=== PATIENT | female | born 1985 | race Two or more races ===

== ENCOUNTER 2022-06-21 06:47 | Emergency (ER) | payer OTHER, SELFPAY ==
--- NOTE | ~2022-06-21 | US_ITS ---
EXAMINATION: US ABDOMEN LIMITED CLINICAL INFORMATION: Right upper quadrant pain. COMPARISON: None available. TECHNIQUE: Real-time imaging of the right upper quadrant abdominal viscera. FINDINGS: PANCREAS: Normal. LIVER: Normal. The liver is normal in size. The liver contour is normal. Parenchymal echogenicity is normal. No focal hepatic lesion. There is no intrahepatic biliary duct dilatation seen. GALLBLADDER: There are multiple echogenic mobile gallstones. Mild gallbladder wall thickening measuring 0.4 cm. No pericholecystic fluid collection seen. COMMON BILE DUCT: Normal in caliber measuring 0.3 cm in diameter. RIGHT KIDNEY: Normal. No hydronephrosis. No renal calculi or focal parenchymal lesions. The kidney measures 11.2 cm in maximum dimension. FREE FLUID: None. US/US abdomen limited IMPRESSION: 1. Cholelithiasis with mild gallbladder wall thickening. No pericholecystic fluid collection. 2. Visualized pancreas, liver, CBD and the right kidney appears unremarkable..
[2022-06-21 06:56] VITALS: BP 154/64; PULSE 73; RESP 18; TEMP 36.5; O2SAT 100; BMI 26.5
[2022-06-21 07:21] LABS: MANUAL DIFF FLAG NO
[2022-06-21 07:26] LABS: Basophils Percent Auto 0.5 % (0-2); Eosinophils Absolute Auto 0.1 X10*3/uL (0.0-0.4); Eosinophils Percent Auto 1.3 % (0-4); Hematocrit 38.4 % (37.0-47.0); Hemoglobin 11.6 g/dl (12.0-16.0); Imm Gran Abs Auto 0.05 X10*3/uL (0.00-0.03); Imm Gran Pct Auto 0.6 % (0.0-0.4); Mean Corpuscular HGB Conc 30.2 g/dl (31.0-35.0); Mean Corpuscular Hemoglobin 23.3 pg (27.0-33.0); Mean Corpuscular Volume 77.3 fL (80.0-98.0); Mean Platelet Volume 9.8 fL (9.4-12.3); Monocytes Absolute Auto 0.5 X10*3/uL (0.1-1.2); Monocytes Percent Auto 5.5 % (2-11); Neutrophils Absolute Auto 5.7 x10*3/uL (2.0-8.3); Neutrophils Percent Auto 68.1 % (45-73); Platelet Count 341 X10*3/uL (160-400); Red Blood Count 4.97 X10*6/uL (4.20-5.50); Red Cell Distribution Width 15.9 % (11.0-16.0); White Blood Count 8.4 X10*3/uL (4.8-10.8)
[2022-06-21 07:59] LABS: Alanine Aminotransferase 12 U/L (0-31); Alkaline Phosphatase 126 U/L (39-117); Anion Gap 11 (12-20); Aspartate Amino Transferase 16 U/L (5-31); Bilirubin Direct 0.2 mg/dL (0.0-0.5); Bilirubin Total 0.5 mg/dL (0.0-1.0); Blood Urea Nitrogen 12 mg/dL (9-16); Carbon Dioxide 25 mmol/L (22-29); Chloride 106 mmol/L (96-108); Creatinine Clr Calc Pharmacy 96.7; Estimated Glomerular Filt Rate > 60; Glucose Random 119 mg/dL (60-115); Lipase 45 U/L (8-78); Potassium 4.4 mmol/L (3.3-5.1); Sodium 138 mmol/L (135-145); Total Protein 7.7 g/dL (6.5-8.0)
[2022-06-21 08:04] LABS: Appearance Urine Cloudy; Color Urine Yellow; Glucose Urine UA Negative (Negative); Leukocyte Esterase Urine Moderate (2+) (Negative); Nitrite Urine Negative (Negative); PH 6.5 (5.0-9.0); UMIC TRIGGER UACC YES; UPreg QC Valid YES; Urine Blood Negative (Negative); Urine Ketones Negative (Negative); Urine Pregnancy NEGATIVE (NEGATIVE); Urine Protein Negative (Neg-Trace)
[2022-06-21 08:06] LABS: Bacteria Urine 1+ (None Seen); Hyaline Casts Urine 0-2 /LPF (0-2); RBC Urine 0-2 /HPF (0-2); UACC Culture Trigger YES
--- NOTE | 2022-06-21 08:07 | ED.ABDPAIN ---
HPI - Abdominal Pain General Chief Complaint: Abdominal Pain Stated Complaint: abd pain Time Seen by Provider: 06/21/22 08:07 Source: patient Mode of arrival: ambulatory Limitations: no limitations History of Present Illness HPI narrative: Patient no significant past medical history complaining of upper abdominal pain since last night vomited about more than 6 never had similar pain in the past did not eat anything since last night no urinary complaints no fever or chills Related Data Previous Rx's Medication Instructions Recorded cefuroxime axetil 250 mg tablet 250 mg PO BID 7 days #14 tabs 06/21/22 ondansetron 4 mg disintegrating 4 mg PO Q6-8H PRN nausea and 06/21/22 tablet vomiting #7 tabs tramadol 50 mg tablet 50 mg PO Q6H PRN pain #20 tabs 06/21/22 Allergies Allergy/AdvReac Type Severity Reaction Status Date / Time No Known Allergies Allergy Verified 06/21/22 07:00 Review of Systems Review of Systems Yes all other systems are reviewed and are negative [facility] Social History Social History Advance Directives: No Advance Directives Information Provided: No Physical Exam ED Vital Signs: Vital Signs - 24 hr 06/21/22 06:56 Temperature 97.7 F Pulse Rate 73 Respiratory Rate 18 Blood Pressure 154/64 H Pulse Oximetry 100 Oxygen Delivery Method Room Air BMI result Body Mass Index 26.5 Appearance: Alert. Oriented X3. No acute distress. Eyes: PERRLA, No Nystagmus ENT: Pharynx normal. Oral Mucosa moist Neck: Normal inspection. Neck supple. CVS: Normal heart rate and rhythm. Pulses normal. Respiratory: No respiratory distress. Equal air entry bilateral, no wheezing/rales/rhonchi Abdomen: Soft tender right upper quad and epigastric area no rebound tenderness or guarding Bowel sounds are present, no mass palpable, no CVA tenderness Skin: Skin warm and dry. Normal skin color. Normal skin turgor. Extremities: No lower extremity edema. No calf tenderness Neuro: Oriented X 3. No motor deficit. Medical Decision Making Medical Decision Making MDM Narrative: Bedside ultrasound done showed gallstones. Will get official ultrasound to rule out cholecystitis or CBD stone 1015 patient feeling much better at this time pain has improved ultrasound confirmed gallstones Lab Data [facility] Lab Attestation statement: I reviewed the patient's lab results. 06/21/22 07:16 06/21/22 07:16 Labs: Lab Results 06/21/22 06/21/22 06/21/22 Range/Units 07:16 07:16 07:56 WBC 8.4 (4.8-10.8) X10*3/uL RBC 4.97 (4.20-5.50) X10*6/uL Hgb 11.6 L (12.0-16.0) g/dl Hct 38.4 (37.0-47.0) % MCV 77.3 L (80.0-98.0) fL MCH 23.3 L (27.0-33.0) pg MCHC 30.2 L (31.0-35.0) g/dl RDW 15.9 (11.0-16.0) % Plt Count 341 (160-400) X10*3/uL MPV 9.8 (9.4-12.3) fL Immature Gran % (Auto) 0.6 H (0.0-0.4) % Neut % (Auto) 68.1 (45-73) % Lymph % (Auto) 24.0 (20-40) % [place] % (Auto) 5.5 (2-11) % Eos % (Auto) 1.3 (0-4) % Baso % (Auto) 0.5 (0-2) % Lymph # (Auto) 2.0 (1.2-4.9) X10*3/uL [place] # (Auto) 0.5 (0.1-1.2) X10*3/uL Eos # (Auto) 0.1 (0.0-0.4) X10*3/uL Baso # (Auto) 0.0 (0.0-0.2) X10*3/uL Abs Immat Gran (auto) 0.05 H (0.00-0.03) X10*3/uL Absolute Neuts (auto) 5.7 (2.0-8.3) x10*3/uL Absolute Nucleated RBC 0.000 (0.0-0.012) X10*3/uL Nucleated RBC % (auto) 0.0 (0.0-0.2) /100WBC Sodium 138 (135-145) mmol/L Potassium 4.4 (3.3-5.1) mmol/L Chloride 106 (96-108) mmol/L Carbon Dioxide 25 (22-29) mmol/L Anion Gap 11 L (12-20) BUN 12 (9-16) mg/dL Creatinine 0.73 (0.5-1.4) mg/dL Estim Creat Clear Calc 96.7 Estimated GFR > 60 Random Glucose 119 H (60-115) mg/dL Calcium 9.0 (8.4-10.2) mg/dL Total Bilirubin 0.5 (0.0-1.0) mg/dL Direct Bilirubin 0.2 (0.0-0.5) mg/dL AST 16 (5-31) U/L ALT 12 (0-31) U/L Alkaline Phosphatase 126 H (39-117) U/L Total Protein 7.7 (6.5-8.0) g/dL Albumin 4.0 (3.5-5.0) g/dL Lipase 45 (8-78) U/L Urine Color Yellow Urine Appearance Cloudy Urine pH 6.5 (5.0-9.0) Ur Specific [place] 1.020 (1.005-1.025) Urine Protein Negative (Neg-Trace) mg/dL Urine Glucose (UA) Negative (Negative) mg/dL Urine Ketones Negative (Negative) mg/dL Urine Blood Negative (Negative) Urine Nitrite Negative (Negative) Ur Leukocyte Esterase Moderate (2+) H (Negative) Urine RBC 0-2 (0-2) /HPF Urine WBC 11-20 H (0-5) /HPF Ur Squamous Epith Cells 6-10 (0-2) /HPF Urine Bacteria 1+ (None Seen) Hyaline Casts 0-2 (0-2) /LPF Urine Test (NEGATIVE) 06/21/22 Range/Units 07:56 WBC (4.8-10.8) X10*3/uL RBC (4.20-5.50) X10*6/uL Hgb (12.0-16.0) g/dl Hct (37.0-47.0) % MCV (80.0-98.0) fL MCH (27.0-33.0) pg MCHC (31.0-35.0) g/dl RDW (11.0-16.0) % Plt Count (160-400) X10*3/uL MPV (9.4-12.3) fL Immature Gran % (Auto) (0.0-0.4) % Neut % (Auto) (45-73) % Lymph % (Auto) (20-40) % [place] % (Auto) (2-11) % Eos % (Auto) (0-4) % Baso % (Auto) (0-2) % Lymph # (Auto) (1.2-4.9) X10*3/uL [place] # (Auto) (0.1-1.2) X10*3/uL Eos # (Auto) (0.0-0.4) X10*3/uL Baso # (Auto) (0.0-0.2) X10*3/uL Abs Immat Gran (auto) (0.00-0.03) X10*3/uL Absolute Neuts (auto) (2.0-8.3) x10*3/uL Absolute Nucleated RBC (0.0-0.012) X10*3/uL Nucleated RBC % (auto) (0.0-0.2) /100WBC Sodium (135-145) mmol/L Potassium (3.3-5.1) mmol/L Chloride (96-108) mmol/L Carbon Dioxide (22-29) mmol/L Anion Gap (12-20) BUN (9-16) mg/dL Creatinine (0.5-1.4) mg/dL Estim Creat Clear Calc Estimated GFR Random Glucose (60-115) mg/dL Calcium (8.4-10.2) mg/dL Total Bilirubin (0.0-1.0) mg/dL Direct Bilirubin (0.0-0.5) mg/dL AST (5-31) U/L ALT (0-31) U/L Alkaline Phosphatase (39-117) U/L Total Protein (6.5-8.0) g/dL Albumin (3.5-5.0) g/dL Lipase (8-78) U/L Urine Color Urine Appearance Urine pH (5.0-9.0) Ur Specific [place] (1.005-1.025) Urine Protein (Neg-Trace) mg/dL Urine Glucose (UA) (Negative) mg/dL Urine Ketones (Negative) mg/dL Urine Blood (Negative) Urine Nitrite (Negative) Ur Leukocyte Esterase (Negative) Urine RBC (0-2) /HPF Urine WBC (0-5) /HPF Ur Squamous Epith Cells (0-2) /HPF Urine Bacteria (None Seen) Hyaline Casts (0-2) /LPF Urine Test NEGATIVE (NEGATIVE) Radiology Impression Discussion of test interpretation with radiology: I have reviewed the radiologist's reading. Radiologist Impression: US/US abdomen limited IMPRESSION: 1.? Cholelithiasis with mild gallbladder wall thickening. No pericholecystic fluid collection. 2.? Visualized pancreas, liver, CBD and the right kidney appears unremarkable.. Medications Administered Discontinued Medications Generic Name Dose Route Start Last Admin Trade Name Freq PRN Reason Stop Dose Admin Famotidine 20 mg 06/21/22 08:23 06/21/22 08:41 Famotidine/Pf 20 Mg/2 Ml Vial IVPUSH 06/21/22 08:24 20 mg ONCE ONE Administration Sodium Chloride 1,000 mls @ 999 mls/hr 06/21/22 08:23 06/21/22 10:08 Ns IV 06/21/22 09:23 Infused .Q1H1M ONE Infusion Ceftriaxone Sodium 1 gm/ 50 mls @ 100 mls/hr 06/21/22 08:26 06/21/22 09:21 Sodium Chloride IV 06/21/22 08:55 Infused ONCE ONE Infusion Ketorolac Tromethamine 30 mg 06/21/22 08:23 06/21/22 08:41 Ketorolac Tromethamine 30 Mg/Ml Vial IVPUSH 06/21/22 08:24 30 mg ONCE ONE Administration Ondansetron HCl 4 mg 06/21/22 08:23 06/21/22 08:40 Ondansetron Hcl 4 Mg/2 Ml Vial IVPUSH 06/21/22 08:24 4 mg ONCE ONE Administration Discharge Plan Discharge Clinical Impression: Gallstone, UTI (urinary tract infection) Patient Disposition: Home, Self-Care Instructions: Gallstones (ED), Urinary Tract Infection in Women (ED) Additional Instructions: Avoid fried food Antibiotics for urinary tract infection Medicine for the nausea Drink plenty of fluids Follow-up surgeon for elective surgery for gallstones Report to the ER if worsening of the pain in right upper abdomen Chelo la comida frita Antibi?ticos para la infecci?n del tracto urinario Medicina para las nauseas Beber mucho l?quido Cirujano de seguimiento para cirug?a electiva de c?lculos biliares Informe a la reinier de emergencias si empeora el dolor en la parte superior derecha del abdomen Prescriptions: New cefuroxime axetil 250 mg tablet 250 mg PO BID 7 Days Qty: 14 0RF tramadol 50 mg tablet 50 mg PO Q6H PRN (Reason: pain) Qty: 20 0RF ondansetron 4 mg tablet,disintegrating 4 mg PO Q6-8H PRN (Reason: nausea and vomiting) Qty: 7 0RF Referrals: Isma Easley MD [Physician] - 1 week Print Language: Hungarian
[2022-06-21] MEDS: 0.9 % Sodium Chloride 1,000 ML 999 ML IV (08:37)
[2022-06-21] MEDS: ondansetron HCL 4 MG/2 ML VIAL IVPUSH (08:40)
[2022-06-21] MEDS: cefTRIAXone sodium 1 GM in 0.9 % Sodium Chloride 50 ML IV (08:40)
[2022-06-21] MEDS: Famotidine/PF 20 MG/2 ML VIAL IVPUSH (08:41)
[2022-06-21] MEDS: Ketorolac Tromethamine 30 MG/ML VIAL IVPUSH (08:41)
--- NOTE | 2022-06-21 09:28 | PC.NURSE ---
u/s at bedside at this time
== END 2022-06-21 10:44 | disposition home or self-care (01) ==
PROVIDERS: Emergency Provider Internal Medicine; PCP Family Medicine
DX: K80.20 Calculus of gallbladder without cholecystitis without obstruction (principal); N39.0 Urinary tract infection, site not specified; Z79.899 Other long term (current) drug therapy
CPT/HCPCS: 36415; 76705; 80048; 80076; 81001; 81003; 81025; 83690; 85025; 87086; 87088; 87186; 96361; 96374; 96375; 99284; J0696; J1885; J2405

== ENCOUNTER → 2022-07-10 09:27 | Outpatient (BNVA) | payer OTHER, SELFPAY | PROVIDERS: PCP Family Medicine; Visit Provider Surgery | DX: K80.20 Calculus of gallbladder without cholecystitis without obstruction (principal) | CPT/HCPCS: 99202 ==

== ENCOUNTER 2022-10-30 09:49 | Outpatient (REF) | payer OTHER, SELFPAY ==
[2022-10-30 11:25] LABS: MANUAL DIFF FLAG NO
[2022-10-30 11:30] LABS: Basophils Percent Auto 0.5 % (0-2); Eosinophils Absolute Auto 0.1 X10*3/uL (0.0-0.4); Eosinophils Percent Auto 1.5 % (0-4); Hematocrit 35.6 % (37.0-47.0); Hemoglobin 10.7 g/dl (12.0-16.0); Imm Gran Abs Auto 0.02 X10*3/uL (0.00-0.03); Imm Gran Pct Auto 0.3 % (0.0-0.4); Lymphocytes Absolute Auto 1.8 X10*3/uL (1.2-4.9); Lymphocytes Percent Auto 29.4 % (20-40); Mean Corpuscular HGB Conc 30.1 g/dl (31.0-35.0); Mean Corpuscular Volume 76.4 fL (80.0-98.0); Mean Platelet Volume 10.8 fL (9.4-12.3); Monocytes Absolute Auto 0.4 X10*3/uL (0.1-1.2); Neutrophils Absolute Auto 3.7 x10*3/uL (2.0-8.3); Neutrophils Percent Auto 61.3 % (45-73); Platelet Count 353 X10*3/uL (160-400); Red Blood Count 4.66 X10*6/uL (4.20-5.50)
[2022-10-30 11:40] LABS: Estimated Average Glucose 114 mg/dL; Hemoglobin A1c % 5.6 %
[2022-10-30 12:23] LABS: Syphilis Screen Nonreactive (Nonreactive)
[2022-10-30 12:25] LABS: Hepatitis A Antibody IgG REACTIVE (Nonreactive); TSH reflex Free T4 0.81 uIU/mL (0.32-4.0); ~Hepatitis A Antibody IgG 10.48 S/CO (0.00-0.99)
[2022-10-30 12:30] LABS: Cholesterol 179 mg/dL; HDL Cholesterol 56 mg/dL; LDL Cholesterol Calculated 98 mg/dl; Triglycerides 125 mg/dL
[2022-10-30 12:34] LABS: HBc Num1 0.23 S/CO (0.00-0.79); HBsAGNum1 0.33 S/CO (0.00-0.99); HIV AB/AG Nonreactive (Nonreactive); HIV Num 1 0.07 S/CO (0.00-0.99); Hepatitis B Core Antibody Nonreactive (Nonreactive); Hepatitis B Surface Antigen Negative (Negative)
[2022-10-30 12:46] LABS: Reflex LDLD? No
[2022-10-30 13:42] LABS: ~Hepatitis C Antibody Nonreactive (Nonreactive)
== END 2022-10-30 09:50 | disposition home or self-care (01) ==
LOC: HO.HHCL 09:49
PROVIDERS: Visit Provider Family Medicine
DX: Z00.00 Encounter for general adult medical examination without abnormal findings (principal)
CPT/HCPCS: 36415; 80061; 83036; 84443; 85025; 86704; 86708; 86780; 86803; 87340; 87389

== ENCOUNTER 2022-11-12 07:02 | Day surgery (SDC) | payer OTHER, SELFPAY ==
[2022-11-07 11:23] VITALS: BMI 28.0
--- NOTE | 2022-11-11 09:31 | HO.ANESPROP2 ---
Documented by User: Alejandra Koroma NP 11/11/22 09:32 HPI - Anesthesia Eval Consult details Narrative: 36yo F for Cholecystectomy Laparoscopic,poss open PMFSH Active Problems Active Problems: All Active Problems (Updated 07/10/22 @ 09:53 by Isma Easley MD) Gallstones (Acute) Past Medical History Medical History Gallstones Surgical History Surgical History Surgical history unknown Social History Social History Alcohol intake: current Alcohol intake frequency: holidays/special occasions only Patient Tobacco Use Status: Never used Tobacco Use of substances other than those prescribed or required for medical reasons: No Are you DNR?: No Advance Directives: No Advance Directives Information Provided: Yes Meds Allergies Allergy/AdvReac Type Severity Reaction Status Date / Time No Known Allergies Allergy Verified 07/10/22 09:36 Exam Exam Date and Time: November 11, 2022 0931 Height,Weight and Vital Signs: Height 5 ft 3 in Weight 71.668 kg Pertinent Lab Results Pertinent Lab Results: Laboratory Tests 06/21/22 10/30/22 07:16 09:56 WBC 6.0 Hgb 10.7 L Hct 35.6 L Plt Count 353 Sodium 138 Potassium 4.4 Chloride 106 Carbon Dioxide 25 BUN 12 Creatinine 0.73 Assessment and Plan Assessment Anesthesia Assessment: Chart Reviewed Documented by User: Delphine Hernandez MD 11/12/22 08:10 PMFSH Past Medical History Medical History Gallstones Family History Family history of problems with anesthesia: No Surgical History Surgical History Surgical history unknown History of Problems with Anesthesia: No (Never had anesthesia) Social History Social History Alcohol intake: current Alcohol intake frequency: holidays/special occasions only Patient Tobacco Use Status: Never used Tobacco Use of substances other than those prescribed or required for medical reasons: No Are you DNR?: No Advance Directives: No Advance Directives Information Provided: Yes Meds Allergies Allergy/AdvReac Type Severity Reaction Status Date / Time No Known Allergies Allergy Verified 07/10/22 09:36 Exam Height,Weight and Vital Signs: Height 5 ft 3 in Weight 71.668 kg Vital Signs Temp Resp BP Pulse Ox O2 Del Method 11/12/22 07:22 97.1 F 18 104/60 98 Room Air Pertinent Lab Results Pertinent Lab Results: Laboratory Tests 06/21/22 10/30/22 07:16 09:56 WBC 6.0 Hgb 10.7 L Hct 35.6 L Plt Count 353 Sodium 138 Potassium 4.4 Chloride 106 Carbon Dioxide 25 BUN 12 Creatinine 0.73 Lab Results 11/12/22 Range/Units 07:08 Urine Test NEGATIVE (NEGATIVE) Airway Mallampati Class: I TM Dist: >3cm Neck ROM: Full Loose/Missing/Broken Teeth: Yes (Many missing. 1 broken top left back. Denies loose teeth) Heart: RRR Lungs: CTAB Assessment and Plan Assessment Anesthesia Assessment: Anesthesia Plan Discussed Final Anesthetic Review Family History of Problems with Anesthesia: No History of Problems with Anesthesia: No (Never had anesthesia) NPO: Yes ASA Class: I Final Preanesthetic Review: No Changes in Pt Med Stat, Meds/Allgs Chart Reviewed, Consent Obtained/Reviewed and Anes Risks/Benef Reviewed Patient Risk: Low Procedure Risk: Intermediate Assessment/Block/Sedation in SS: Assess/Block/Sedation-SS Anesthetic Plan Anesthetic Plan: GA Disposition: Standard PACU
[2022-11-12] VITALS (7 sets, daily range): BP systolic 104–132; BP diastolic 52–67; PULSE 62–85; RESP 14–18; TEMP 36.2–36.5; O2SAT 97–100; BMI 26.6
[2022-11-12 07:21] LABS: UPreg QC Valid YES; Urine Pregnancy NEGATIVE (NEGATIVE)
[2022-11-12] MEDS: Lactated Ringers 1,000 ML 100 ML IVCONT (07:53)
--- NOTE | 2022-11-12 08:36 | MHC.SHP ---
Pre-Procedural Eval Section A Date of Service: 11/12/22 Section B Chief Complaint: Calculus of gallbladder without cholecystitis Details of Present Illness: has had epig pain on and off since last year Relevant Family History (Specify if Yes): No Relevant Social History: None Present Medications: see Short Stay Collaborative assessment Medical History: No relevant PMH History of Previous Operations: No relevant previous surgery Allergies: Allergies Allergy/AdvReac Type Severity Reaction Status Date / Time No Known Allergies Allergy Verified 07/10/22 09:36 Review of Systems Sugical H&P ROS: Negative: Constitution, Cardiovascular, Respiratory, Neurological, Psychiatric, Hem-Onc, Allergic/Immunologic, Gastrointestinal, Genitourinary, Musculoskeletal, Integumentary, Endocrine and Eyes/Ears/Nose/Throat Exam Surgical H&P Exam: Normal: HEENT, Normal: Heart, Normal: Lungs, Normal: Extremities, Normal: Abdomen, Normal: Skin and Normal: Neurological Plan Diagnosis/Plan: Unchanged I have reviewed the history and physical and performed a pertinent physical examination on my patient. No changes have occurred unless specified. Time Spent With Patient Time: Total time managing care of this patient today ____ minutes.
--- NOTE | 2022-11-12 10:03 | W.PM.OPN ---
Operative Note Operative Note Date of Service: 11/12/22 Narrative: Preop diagnosis: Gallstones, with symptoms Postop diagnosis: The same Procedure: Laparoscopic cholecystectomy Surgeon: Isma Easley MD assistant manager quality management: ALFRED Bermeo The patient is a 36 year female who has had periodic epigastric pain with note of gallstones on ultrasound. She understood the technique of laparoscopic cholecystectomy in view of presumed symptomatic gallstones. She was aware of the risks, benefits, and alternatives . She was brought to the operating room preop and placed in supine position under general anesthesia via endotracheal tube. The abdomen was prepped and draped in the usual sterile fashion. A surgical time-out was done. The patient received Cefotan 2 g IV preoperatively I made a short supraumbilical incision using blade 15. And through this carried down through the full-thickness of the skin subcutaneous fat down to the fascia. The fascia was incised. The peritoneum was entered. Through this incision a Emy port was introduced. Pneumoperitoneum was introduced to a pressure of 15 mm hg. From here on the rest of the procedure was done under vision with the laparoscope. With laparoscopic visualization I placed a 5/12 mm port in the epigastric area below the subcostal margin. Two 5 mm ports introduced a small incision below the subcostal margin along the anterior axillary line and the midclavicular line. Graspers were placed through these working ports. The patient was placed in head-up and [id number] position. The gallbladder was seen and this was not inflamed and supple. We applied a grasper at the fundus and this was used to retract the gallbladder cephalad. Another grasper was a placed on the pus retract this laterally. At this point therefore the gallbladder was being retracted in a cephalad and lateral fashion to put the area of the cystic duct on stretch I then proceeded to gently dissect these area of the neck of the gallbladder using the [place] dissector until was able to clearly see the cystic duct. The confluence of the cystic duct with the of the gallbladder was well-defined. Furthermore, the cystic artery was noted to be running alongside and immediately adherent to the cystic duct as well. I was able to apply clips on this to structures together as 1. Two clips being applied distally the cystic duct and the cystic artery were that resected between clips with Endo scissors I then proceeded to apply traction on the gallbladder away from the liver bed. I divided along the hilum with the electrocautery spatula and incised the peritoneum with electrocautery. I then proceeded to separate the gallbladder from the liver bed along a plane of dissection using a combination of electrocautery as well as blunt dissection with the tip of the spatula. We proceeded with this form of this actually although the fundus until the gallbladder was completely . The gallbladder was retrieved through an endobag through the umbilical incision. I reinserted all ports and re-insufflated. I cauterized oozing areas on the liver bed. Once hemostasis was confirmed, I proceeded to then observed all 4 quadrants. There was no other pathology and there is no evidence of any bowel injury or are bile leak I then desufflated the port sites. I removed all ports under vision with the laparoscope. The umbilical port was removed last. The fascia of the umbilical incision was closed with [id number] Polysorb 0 stitch. Skin closure was achieved on all incisions using Polysorb 4-0 subcuticular running sutures All incisions were infiltrated with Marcaine 0.5% for postop analgesia. Steri-Strips and dressings were applied. The procedure was completed The patient tolerated procedure well. There were no immediate complications. Initial and final counts of sponges and instruments were correct. Estimated blood loss was about 25 cc The patient was extubated without difficulty and transferred to the recovery room with stable vital signs
[2022-11-12] MEDS: oxyCODONE HCl Immed Release 5 MG TABLET PO (10:49)
[2022-11-12] MEDS: Acetaminophen 325 MG TABLET 650 MG PO (10:49)
== END 2022-11-12 11:51 | disposition home or self-care (01) ==
PROVIDERS: Nurse Practitioner; PCP Family Medicine; Visit Provider Surgery
PROC: 0FT44ZZ Resection of Gallbladder, Percutaneous Endoscopic Approach (ICD-10-PCS; CPT 47562; principal; 2022-11-12 08:40)
DX: K80.10 Calculus of gallbladder with chronic cholecystitis without obstruction (principal)
CPT/HCPCS: 47562; 81025; 88304; J1885; J2405; J2795; J3010

== ENCOUNTER → 2022-11-12 07:02 | Outpatient (BNV) | payer OTHER, SELFPAY | PROVIDERS: PCP Family Medicine; Visit Provider Surgery | DX: K80.10 Calculus of gallbladder with chronic cholecystitis without obstruction (principal) | CPT/HCPCS: 47562 ==

== ENCOUNTER 2022-11-25 09:14 | Outpatient (AMB) | payer OTHER, SELFPAY ==
--- NOTE | 2022-11-25 09:18 | MHC.OFFVIS ---
Intake Vital Signs 11/25/22 09:24 Weight 155 lb Intake Visit Reasons: S/P lap tommy Intake Note: This patient presents for a post-op assessment status post laparoscopic cholecystectomy. Patient c/o; reports epigastric pain that has not subsided, describes experincing Dry heaving Coil Builder Required: Yes Coil Builder Language: Medical Donation Professional Name: Cristiane Information Interpreted: non-clinical & clinical Accompanied by: Self / Same As Patient Allergies No Known Allergies Allergy (Verified 11/25/22 09:25) HPI S/P lap tommy HPI Details She underwent laparoscopic cholecystectomy last 11/12/2022. She tolerated procedure well. She currently denies significant complaints except pain on the incisions especially on the right side. [facility] Medical History Gallstones Surgical History History of laparoscopic cholecystectomy (~11/12/22) Surgical history unknown Social History Alcohol intake: current Alcohol intake frequency: holidays/special occasions only Patient Tobacco Use Status: Never used Tobacco Review of Systems Const Denies chills and Denies fever(s) Card Denies chest pain, Denies dyspnea and Denies dyspnea on exertion Resp Denies cough, Denies dyspnea and Denies dyspnea on exertion GI Denies hematochezia and Denies change in bowel habits Denies hematuria Musc Denies back pain and Denies limited range of motion Neuro Denies focal weakness and Denies convulsions Psych Denies depression and Denies mood swings Physical Exam Const General: comfortable and no acute distress Eyes Other: Anicteric sclerae Resp Effort & Inspection: normal respiratory effort GI Other: Incisions well healed, not infected, no hernias Palpation (GI): Soft to palpation, not firm and nontender Assessment & Plan Assessment & Plan (1) Gallstones: Code(s): K80.20 - Calculus of gallbladder without cholecystitis without obstruction Plan: Status post laparoscopic cholecystectomy for gallstones. She is doing very well. All incisions are well healed. She has good GI functions She was advised to avoid any lifting more than 20 lb for at least 2 more weeks. She can follow up on a p.r.n. basis. Coding Level of Care Code Global (65115) Diagnoses Gallstones K80.20
== END 2022-11-25 09:39 | disposition home or self-care (01) ==
PROVIDERS: PCP Family Medicine; Visit Provider Surgery
DX: K80.20 Calculus of gallbladder without cholecystitis without obstruction (principal)
CPT/HCPCS: 99213

== ENCOUNTER → 2022-11-25 09:14 | Outpatient (BNVA) | payer OTHER, SELFPAY | PROVIDERS: PCP Family Medicine; Visit Provider Surgery | DX: Z09 Encounter for follow-up examination after completed treatment for conditions other than malignant neoplasm (principal); Z87.19 Personal history of other diseases of the digestive system; Z90.49 Acquired absence of other specified parts of digestive tract | CPT/HCPCS: 99212 ==

== ENCOUNTER 2023-07-11 18:08 | Outpatient (REF) | payer OTHER, SELFPAY ==
[2023-07-14 17:03] LABS: C. trachomatis RNA TMA NOT DETECTED (NOT DETECTED); Candida glabrata RNA NOT DETECTED (NOT DETECTED); Candida species RNA DETECTED (NOT DETECTED); N. gonorrhoeae RNA TMA NOT DETECTED (NOT DETECTED); Trichomonas vaginalis RNA NOT DETECTED (NOT DETECTED)
== END 2023-07-11 18:09 | disposition home or self-care (01) ==
LOC: HO.HHCLNP 18:08
PROVIDERS: Visit Provider Family Medicine
DX: N92.6 Irregular menstruation, unspecified (principal)
CPT/HCPCS: 36415; 81513; 87481; 87491; 87591; 87661

== ENCOUNTER 2023-07-14 09:00 | Outpatient (REF) | payer OTHER, SELFPAY ==
[2023-07-14 11:41] LABS: Hematocrit 34.5 % (37.0-47.0); Hemoglobin 10.3 g/dl (12.0-16.0); Mean Corpuscular HGB Conc 29.9 g/dl (31.0-35.0); Mean Corpuscular Hemoglobin 22.2 pg (27.0-33.0); Mean Corpuscular Volume 74.2 fL (80.0-98.0); Mean Platelet Volume 10.4 fL (9.4-12.3); Platelet Count 421 X10*3/uL (160-400); Red Blood Count 4.65 X10*6/uL (4.20-5.50); Red Cell Distribution Width 16.5 % (11.0-16.0); White Blood Count 7.9 X10*3/uL (4.8-10.8)
[2023-07-14 12:27] LABS: Estimated Average Glucose 117 mg/dL; Hemoglobin A1c % 5.7 % (<6.0)
[2023-07-14 13:07] LABS: Alanine Aminotransferase 13 U/L (0-31); Albumin Level 3.8 g/dL (3.5-5.0); Alkaline Phosphatase 91 U/L (39-117); Anion Gap 10 (12-20); Aspartate Amino Transferase 15 U/L (5-31); Bilirubin Direct 0.2 mg/dL (0.0-0.5); Bilirubin Total 0.4 mg/dL (0.0-1.0); Blood Urea Nitrogen 15 mg/dL (9-16); Calcium 8.8 mg/dL (8.4-10.2); Carbon Dioxide 27 mmol/L (22-29); Chloride 104 mmol/L (96-108); Cholesterol 183 mg/dL (<200); Estimated Glomerular Filt Rate > 60; Glucose Random 94 mg/dL (60-115); HDL Cholesterol 64 mg/dL (>40); LDL Cholesterol Calculated 96 mg/dL (<100); Potassium 4.2 mmol/L (3.3-5.1); Sodium 137 mmol/L (135-145); Total Protein 7.9 g/dL (6.5-8.0); Triglycerides 118 mg/dL (<150)
[2023-07-14 13:29] LABS: Free T4 (Free Thyroxine) 0.94 ng/dL (0.71-1.85); Thyroid Stimulating Hormone 0.58 uIU/mL (0.32-4.0); Vitamin D 25-OH Total 17.1 ng/mL (>30)
== END 2023-07-14 09:01 | disposition home or self-care (01) ==
LOC: HO.HHCL 09:00
PROVIDERS: Visit Provider Family Medicine
DX: N93.9 Abnormal uterine and vaginal bleeding, unspecified (principal)
CPT/HCPCS: 36415; 80048; 80061; 80076; 82306; 83036; 84439; 84443; 85027

== ENCOUNTER 2023-08-07 11:16 | Outpatient (REF) | payer OTHER, SELFPAY ==
--- NOTE | ~2023-08-07 | US_ITS ---
EXAMINATION: US PELVIS CLINICAL INFORMATION: New spotting on oral contraceptive pills, last menstrual period 3 weeks ago. COMPARISON: None available. TECHNIQUE: Ultrasound of the pelvis is performed using both transabdominal and transvaginal transducers along with Doppler. Transvaginal imaging is performed due to inadequate visualization transabdominally. FINDINGS: The uterus is retroverted and measures 7.4 x 3.4 x 4.7 cm. No discrete fibroids are appreciated. Endometrial thickness is 6 mm. No significant free fluid. Right ovary measures 3.0 x 1.2 x 1.4 cm, volume 2.5 mL and is unremarkable. Left ovary measures 2.5 x 1.1 x 1.2 cm, volume 1.7 mL. Left ovary was not seen on transabdominal ultrasound images. Limited visualization due to bowel gas. Left ovary is unremarkable on transvaginal ultrasound images. US/US pelvic and transvaginal IMPRESSION: 1. No discrete fibroids appreciated. 2. Endometrial thickness is 6 mm. Correlation with clinical exam recommended to determine further management. 3. Unremarkable bilateral ovaries.
== END 2023-08-07 11:17 | disposition home or self-care (01) ==
LOC: HO.US 11:16
PROVIDERS: PCP Family Medicine; Visit Provider Family Medicine
DX: N93.9 Abnormal uterine and vaginal bleeding, unspecified (principal)
CPT/HCPCS: 76830; 76856

== ENCOUNTER 2023-09-25 13:52 | Outpatient (AMB) | payer OTHER, SELFPAY ==
--- NOTE | 2023-09-25 14:12 | MHC.OFFVIS ---
Vital Signs 09/25/23 14:22 Weight 153 lb BP 120/64 Blood Pressure Location Rt brachial Position Sitting Pulse 87 Intake Visit Reasons: incisional pain, Hx cholecystectomy Intake Note: This patient presents for a hematoma, injury to right argueta. Patient c/o; reports I have the exact same pain I had before the removed my gallbladder , reports I have constant pain in the mouth of my stomach , reports this causes her to feel fatigue, reports nausea and vomiting. 09/19/2023: Tibia/Fibula X-ray Extrusion Press Supervisor Required: Yes Extrusion Press Supervisor Language: Tool Builder Services: Extrusion Press Supervisor Present Extrusion Press Supervisor Name: Cristiane Information Interpreted: non-clinical & clinical Accompanied by: Self / Same As Patient Allergies No Known Allergies Allergy (Verified 09/25/23 14:30) Medication List - Last Reconciled 09/25/23 by Isma Easley MD ibuprofen 600 mg PO Q6H PRN oxycodone-acetaminophen 5-325 mg (Percocet) 1 tab PO Q4-6H PRN HPI HPI incisional pain, Hx cholecystectomy: Details: She had undergone laparoscopic cholecystectomy last October, for symptomatic gallstones. She tolerated procedure well However, she says she continued to have epigastric pain even after her surgery. She denies any problems with swallowing. She has good oral intake. She denies any other GI complaints. She denies any weight loss. [facility] Medical History (Updated 09/25/23 @ 14:40 by Isma Easley MD) Chronic epigastric pain Gallstones Surgical History History of laparoscopic cholecystectomy (~11/12/22) Surgical history unknown Social History Alcohol intake: current Alcohol intake frequency: holidays/special occasions only Patient Tobacco Use Status: Never used Tobacco Review of Systems Const Denies chills and Denies fever(s) Card Denies chest pain, Denies dyspnea and Denies dyspnea on exertion Resp Denies cough, Denies dyspnea and Denies dyspnea on exertion GI Denies hematochezia and Denies change in bowel habits Denies hematuria Musc Denies back pain and Denies limited range of motion Neuro Denies focal weakness and Denies convulsions Psych Denies depression and Denies mood swings Physical Exam Vital Signs: Last Vital Signs Pulse 87 09/25/23 14:22 BP 120/64 09/25/23 14:22 Const General: comfortable and no acute distress Orientation/consciousness: patient oriented x3 Neck Neck: Yes no lymphadenopathy Resp Auscultation: clear to auscultation bilaterally Cardio Rhythm: regular rhythm GI Palpation (GI): Soft to palpation, nontender and no guarding Neuro General: patient oriented x3 Assessment & Plan Assessment & Plan (1) Chronic epigastric pain: Code(s): R10.13 - Epigastric pain; G89.29 - Other chronic pain Category: Medical Plan: She describes chronic epigastric pain and this had persisted even after cholecystectomy a year ago. I will started on a trial of Prilosec. I will also send her a referral to GI for endoscopy I did tell her that if she continues to have questions down the line, she can call us for guidance. She has comfortable with the plan as above. Coding Level of Care Code Est Pt Level 3 (51817) Diagnoses Chronic epigastric pain R10.13; G89.29
[2023-09-25 14:22] VITALS: BP 120/64; PULSE 87
== END 2023-09-25 14:43 | disposition home or self-care (01) ==
PROVIDERS: PCP Family Medicine; Visit Provider Surgery
DX: R10.13 Epigastric pain (principal); G89.29 Other chronic pain
CPT/HCPCS: 99213

== ENCOUNTER → 2023-09-25 13:52 | Outpatient (BNVA) | payer OTHER, SELFPAY | PROVIDERS: PCP Family Medicine; Visit Provider Surgery | DX: R10.13 Epigastric pain (principal); G89.29 Other chronic pain | CPT/HCPCS: 99212 ==

== ENCOUNTER 2023-10-29 13:29 | Outpatient (REF) | payer OTHER, SELFPAY ==
[2023-11-03 15:18] LABS: HPV mRNA E6/E7 Not Detected (Not Detected)
== END 2023-10-29 13:30 | disposition home or self-care (01) ==
LOC: HO.HHCLNP 13:29
PROVIDERS: Visit Provider Advanced Practice Midwife
DX: Z12.4 Encounter for screening for malignant neoplasm of cervix (principal); N93.9 Abnormal uterine and vaginal bleeding, unspecified; R87.612 Low grade squamous intraepithelial lesion on cytologic smear of cervix (LGSIL)
CPT/HCPCS: 36415; 87624; 88175

== ENCOUNTER 2023-11-04 14:38 | Outpatient (REF) | payer OTHER, SELFPAY ==
[2023-11-04 16:34] LABS: Alanine Aminotransferase 14 U/L (0-31); Alkaline Phosphatase 120 U/L (39-117); Anion Gap 11 (12-20); Aspartate Amino Transferase 18 U/L (5-31); Bilirubin Total 0.3 mg/dL (0.0-1.0); Blood Urea Nitrogen 14 mg/dL (9-16); Calcium 9.1 mg/dL (8.4-10.2); Carbon Dioxide 26 mmol/L (22-29); Chloride 104 mmol/L (96-108); Estimated Glomerular Filt Rate > 60; Glucose Random 162 mg/dL (60-115); Potassium 3.9 mmol/L (3.3-5.1); Sodium 137 mmol/L (135-145); Total Protein 8.3 g/dL (6.5-8.0)
[2023-11-05 08:11] LABS: HBS Num1 2.07 mIU/mL (0-7.99); HBc Num1 0.14 S/CO (0.00-0.79); HBsAGNum1 0.34 S/CO (0.00-0.99); HIV AB/AG Nonreactive (Nonreactive); HIV Num 1 0.07 S/CO (0.00-0.99); Hepatitis B Core Antibody Nonreactive (Nonreactive); Hepatitis B Surface Antigen Negative (Negative); ~HepC Num1 0.53 S/CO (0.00-0.79); ~Hepatitis B Surface Antibody NONREACTIVE (Nonreactive); ~Hepatitis C Antibody Nonreactive (Nonreactive)
[2023-11-05 08:13] LABS: Hepatitis A Antibody IgG REACTIVE (Nonreactive); Syphilis Screen Nonreactive (Nonreactive); ~Hepatitis A Antibody IgG 9.98 S/CO (0.00-0.99)
== END 2023-11-04 14:39 | disposition home or self-care (01) ==
LOC: HO.HHCL 14:38
PROVIDERS: Visit Provider Family Medicine
DX: Z01.84 Encounter for antibody response examination (principal); Z11.3 Encounter for screening for infections with a predominantly sexual mode of transmission; Z11.4 Encounter for screening for human immunodeficiency virus [HIV]; R10.13 Epigastric pain
CPT/HCPCS: 36415; 80053; 86704; 86706; 86708; 86780; 86803; 87340; 87389

== ENCOUNTER 2023-11-05 09:13 | Outpatient (REF) | payer OTHER, SELFPAY | END 2023-11-05 09:14 | disposition home or self-care (01) | LOC: HO.HHCL 09:13 | PROVIDERS: Visit Provider Family Medicine | DX: R10.13 Epigastric pain (principal) | CPT/HCPCS: 87338 ==

== ENCOUNTER 2023-11-24 09:03 | Outpatient (REF) | payer OTHER, SELFPAY ==
[2023-11-24 11:32] LABS: MANUAL DIFF FLAG NO
[2023-11-24 11:49] LABS: Basophils Percent Auto 0.7 % (0-2); Eosinophils Absolute Auto 0.2 X10*3/uL (0.0-0.4); Hematocrit 36.8 % (37.0-47.0); Hemoglobin 10.8 g/dl (12.0-16.0); Imm Gran Abs Auto 0.05 X10*3/uL (0.00-0.03); Imm Gran Pct Auto 0.8 % (0.0-0.4); Immature Retic Fraction 25.6 % (3.0-15.9); Lymphocytes Absolute Auto 2.1 X10*3/uL (1.2-4.9); Lymphocytes Percent Auto 35.7 % (20-40); Mean Corpuscular HGB Conc 29.3 g/dl (31.0-35.0); Mean Corpuscular Hemoglobin 21.8 pg (27.0-33.0); Mean Corpuscular Volume 74.3 fL (80.0-98.0); Mean Platelet Volume 10.4 fL (9.4-12.3); Monocytes Absolute Auto 0.4 X10*3/uL (0.1-1.2); Monocytes Percent Auto 6.2 % (2-11); Neutrophils Absolute Auto 3.2 x10*3/uL (2.0-8.3); Neutrophils Percent Auto 53.6 % (45-73); Platelet Count 370 X10*3/uL (160-400); Red Blood Count 4.95 X10*6/uL (4.20-5.50); Red Cell Distribution Width 17.3 % (11.0-16.0); Retic HGB Equivalent 25.1 pg (30.0-35.0); Reticulocyte Percent 1.7 % (0.5-1.8); Reticulocytes Absolute 0.084 X10*6/uL (0.026-0.095)
[2023-11-24 12:31] LABS: Folate 13.6 ng/mL (> or = 4.0); Vitamin B12 263 pg/mL (200-900)
[2023-11-24 12:36] LABS: Iron 23 mcg/dL (30-160); Percent Iron Saturation 6 % (15-50); Total Iron Binding Capacity 405 mcg/dL (228-428); Unsaturated Iron Binding 382 ug/dL
[2023-11-24 12:54] LABS: Ferritin < 2 ng/mL (10-122)
== END 2023-11-24 09:04 | disposition home or self-care (01) ==
LOC: HO.HHCL 09:03
PROVIDERS: Visit Provider Family Medicine
DX: D64.9 Anemia, unspecified (principal)
CPT/HCPCS: 36415; 82607; 82728; 82746; 83540; 85025; 85045

== ENCOUNTER 2023-11-25 08:00 | Outpatient (REF) | payer OTHER, SELFPAY | END 2023-11-25 08:01 | disposition home or self-care (01) | LOC: HO.HHCL 08:00 | PROVIDERS: Visit Provider Family Medicine | DX: K29.70 Gastritis, unspecified, without bleeding (principal); B96.81 Helicobacter pylori [H. pylori] as the cause of diseases classified elsewhere | CPT/HCPCS: 87338 ==

== ENCOUNTER 2024-02-02 12:26 | Outpatient (REF) | payer OTHER, SELFPAY ==
[2024-02-04 15:58] LABS: H Pylori Breath Test Negative (Negative)
== END 2024-02-02 12:27 | disposition home or self-care (01) ==
LOC: HO.LAB 12:26
PROVIDERS: PCP Family Medicine; Visit Provider Internal Medicine Gastroenterology
DX: R10.13 Epigastric pain (principal); G89.29 Other chronic pain
CPT/HCPCS: 83013; 99202

== ENCOUNTER 2024-02-02 12:26 | Outpatient (AMB) | payer OTHER, SELFPAY ==
--- NOTE | 2024-02-02 12:31 | A.OFFVIS_ITS ---
Vital Signs 02/02/24 12:34 Height 5 ft 3 in Weight 156 lb BMI 27.6 BP 111/75 Blood Pressure Location Lt brachial Position Sitting Pulse 76 Intake Visit Reasons: Epigastric pain Intake Note: Patient follow up for Epigastric pain Patient cc: abdominal pain and a lot of noises on her stomach after eating and also between diarrhea and constipation. Denies any other GI issues Department Chair Required: Yes Department Chair Name: [facility] Interpeter Accompanied by: Self / Same As Patient Allergies No Known Allergies Allergy (Verified 02/02/24 12:30) HPI HPI Epigastric pain: Details: HPI 38 yr old f here for assessment she has had epigastric pain, 3-4 years no relieving or exacerbating factors, she has occ nausea she takes prilosec prn -helps a little took one month ago pcp checked h pylori and was pos, pain seemed to go away up till 3-4 weeks ago--follow up h pylori was neg she has both constipation, and diarrhea she denies melena, rectal bleeding labs with anemia, has had spotting -vaginally after stopping OCP ROS: Constitutional : No Weight loss, No Fever, No Chills ENT/Mouth : No sore throat, No Rhinorrhea Eyes: No Swelling, No Redness Cardiovascular : No Chest Pain, No SOB, No Edema Respiratory : No Cough, No Sputum, No Wheezing Gastrointestinal : see HPI Genitourinary : NO Dysuria, No Urinary Frequency, No Hematuria, No Urgency Musculoskeletal : no joint pain, No Myalgias, No Joint Swelling Skin : No Skin Lesions, No rash Neuro : No Weakness, No Numbness, No Dizziness, No Headache Psych : No Anxiety/Panic, No Depression Heme/Lymph: No Bruising, No Lymphadenopathy Endocrine : No Polyuria, No Polydipsia All other systems reviewed and are negative. Medical History Chronic epigastric pain Gallstones Surgical History History of laparoscopic cholecystectomy (~11/12/22) Surgical history unknown Social History Alcohol intake: current Alcohol intake frequency: holidays/special occasions only Patient Tobacco Use Status: Never used Tobacco EXAM: GENERAL: The patient is well developed and nontoxic. VITAL SIGNS:see workflow HEENT: Nonicteric sclerae, PERRLA, EOMI. Oropharynx clear. Moist mucous membranes. Conjunctivae appear well perfused. No thyroid mass. CHEST: Chest wall is nontender. HEART: Regular rate and rhythm without murmurs. LUNGS: Clear to auscultation bilaterally. ABDOMEN: Soft, positive bowel sounds, nontender, no organomegaly.no flank tenderness SKIN: No rash, no excessive bruising, petechiae, or purpura. NEUROLOGIC: Cranial nerves II-XII intact without motor/sensory deficit. Psych: normal affect A/P: 1/ Anemia and epigastric pain, hx of h pylori, no overt Gi bleeding PLAN: 1/ H pylori breath test [facility] History (Updated 09/25/23 @ 14:40 by Isma Easley MD) Chronic epigastric pain Gallstones Surgical History History of laparoscopic cholecystectomy (~11/12/22) Surgical history unknown Social History Alcohol intake: current Alcohol intake frequency: holidays/special occasions only Patient Tobacco Use Status: Never used Tobacco Assessment & Plan Assessment & Plan (1) Chronic epigastric pain: Code(s): R10.13 - Epigastric pain; G89.29 - Other chronic pain Category: Medical Plan: see above Medications: New sodium,potassium,mag sulfates 17.5-3.13-1.6 gram (Suprep Bowel Prep Kit) DILUTE; drink 1/2 at 6-8 pm and half at 11 PM- 1AM 354 mL 0RF Coding Level of Care Code New Pt Level 4 (39951) Diagnoses Chronic epigastric pain R10.13; G89.29
[2024-02-02 12:34] VITALS: BP 111/75; PULSE 76; BMI 27.6
== END 2024-02-02 13:24 | disposition home or self-care (01) ==
PROVIDERS: PCP Family Medicine; Visit Provider Internal Medicine Gastroenterology
DX: R10.13 Epigastric pain (principal); G89.29 Other chronic pain
CPT/HCPCS: 99204

== ENCOUNTER 2024-03-08 08:14 | Day surgery (SDC) | payer OTHER, SELFPAY ==
--- NOTE | 2024-03-08 08:48 | HO.ANESPROP2 ---
HPI - Anesthesia Eval Consult details Narrative: 38 yo F presenting for EGD/colonoscopy [facility] Active Problems Active Problems: All Active Problems Chronic epigastric pain (Acute) Gallstones (Acute) Past Medical History Medical History (Updated 03/08/24 @ 08:49 by Dianelys Rolle RN) Anemia Chronic epigastric pain Gallstones Family History Family history of problems with anesthesia: No Surgical History Surgical History History of laparoscopic cholecystectomy (~11/12/22) Surgical history unknown History of Problems with Anesthesia: No (Never had anesthesia) Social History Social History Alcohol intake: current Alcohol intake frequency: holidays/special occasions only Patient Tobacco Use Status: Never used Tobacco Advance Directives: No Advance Directives Information Provided: Yes Meds Allergies Allergy/AdvReac Type Severity Reaction Status Date / Time No Known Allergies Allergy Verified 02/02/24 12:30 Home Medications ?Medication ?Instructions ?Recorded ?Confirmed ?Last Taken ?Type norgestimate-ethinyl estradiol 1 tab PO DAILY 02/02/24 03/08/24 Unknown History 0.18 mg/0.215mg/0.25mg-35 mcg(28)tablet (Tri-Linyah) ferrous sulfate 325 mg (65 mg 325 mg PO QAM 03/08/24 03/08/24 Unknown History iron) tablet (FeroSul) Exam Exam Date and Time: 03/08/24 0845 Airway Mallampati Class: II TM Dist: >3cm Neck ROM: Full Denture: Upper Heart: S1S2 Lungs: CTAB Assessment and Plan Assessment Anesthesia Assessment: Anesthesia Plan Discussed and Chart Reviewed Final Anesthetic Review Family History of Problems with Anesthesia: No History of Problems with Anesthesia: No (Never had anesthesia) NPO: Yes ASA Class: I Final Preanesthetic Review: No Changes in Pt Med Stat, Meds/Allgs Chart Reviewed, Consent Obtained/Reviewed and Anes Risks/Benef Reviewed Patient Risk: Low Procedure Risk: Low Anesthetic Plan Anesthetic Plan: MAC: and Agree w/ Assess. and Plan Disposition: Standard PACU
[2024-03-08 08:49] VITALS: BMI 27.8
[2024-03-08 09:08] LABS: UPreg QC Valid YES; Urine Pregnancy NEGATIVE (NEGATIVE)
[2024-03-08 09:09] VITALS: BP 116/56; PULSE 75; RESP 15; TEMP 36.9; O2SAT 99
[2024-03-08] MEDS: Lactated Ringers 1,000 ML 50 ML IVCONT (09:13)
--- NOTE | 2024-03-08 09:22 | MHC.SHP ---
Pre-Procedural Eval Section A - 24 Hr Update-Section A only Date of Service: 03/08/24 Section B - Complete if H&P > 30 days Chief Complaint: Epigastric pain Relevant Family History (Specify if Yes): No Relevant Social History: None Present Medications: see Short Stay Collaborative assessment Medical History: Significant History (Anemia Chronic epigastric pain Gallstones) History of Previous Operations: Relevant previous surgery/procedure and date(s) (History of laparoscopic cholecystectomy (~11/12/22)) Allergies: Allergies Allergy/AdvReac Type Severity Reaction Status Date / Time No Known Allergies Allergy Verified 02/02/24 12:30 Review of Systems Sugical H&P ROS: Negative: Constitution, Cardiovascular, Respiratory, Neurological, Psychiatric, Hem-Onc, Allergic/Immunologic, Gastrointestinal, Genitourinary, Musculoskeletal, Integumentary, Endocrine and Eyes/Ears/Nose/Throat Exam Surgical H&P Exam: Normal: HEENT, Normal: Heart, Normal: Lungs, Normal: Extremities, Normal: Abdomen, Normal: Skin and Normal: Neurological Plan Diagnosis/Plan: Unchanged I have reviewed the history and physical and performed a pertinent physical examination on my patient. No changes have occurred unless specified. Time Spent With Patient Time: Total time managing care of this patient today ____ minutes.
--- NOTE | 2024-03-08 10:04 | P.OPN-COLO_ITS ---
Colonoscopy Operative Note Operative Note Date of Service: 03/08/24 Narrative: Operative Information Procedure Description: EGD, Colonoscopy Indication: anemia and abdominal pain Anesthesia: MAC FLEXIBLE TRANSORAL UPPER GASTROINTESTINAL ENDOSCOPY AND COLONOSCOPY PROCEDURE NOTE UPPER ENDOSCOPY Consent: Indications for the procedure and potential complications of bleeding, perforation, reaction to medications and missed diagnosis were discussed with the patient and informed consent was obtained. Instrument: Olympus GIF H 190 J mid size upper endoscope Monitoring: Vital signs and clinical assessment, continuous EKG monitoring, Pulse oximetry, Carbon Dioxide monitoring and blood pressure monitoring were done throughout the procedure. Procedure: The patient was placed in the left lateral decubitis position and pre-procedure medications were administered and a bite block was placed. The endoscope was inserted into the mouth and advanced under direct vision to the third part of duodenum. A careful inspection was made as the upper endoscope was withdrawn including a retroflexed examination of the proximal stomach; Findings and interventions are described below. Findings: Larynx:normal Esophagus: GE junction at 40 cm, diaphragm hiatus at 40 cm, normal mucosa, distal esophagus bx taken Stomach: Mild gastritis. Biopsies were obtained. Grade 2 flap valve on retroflexed examination of the cardia. Duodenum: Normal bulb and descending duodenum, bx taken Intervention: Biopsies as noted above, COLONOSCOPY Instrument: Olympus variable stiffness pediatric scope 190L Colonoscopy Monitoring: Vital signs and clinical assessment, continuous EKG monitoring, Pulse oximetry, Carbon Dioxide monitoring and blood pressure monitoring were done throughout the procedure. Colon withdrawal time was 8 minutes. Procedure: The patient was placed in the left lateral decubitis position and pre-procedure medications were administered. After a digital rectal examination of the ano-rectum, the video colonoscope was inserted into the rectum and advanced through the colon to the cecum/TI. The colonoscope was slowly withdrawn in a retrograde panoramic fashion and the colon mucosa was carefully examined including a retroflexed view of the rectum. Findings and interventions are described below. Procedure Difficulty:moderate Findings: Terminal Ileum-normal, bx taken random colon bx taken Cecum:normal Ascending Colon: normal Transverse Colon -normal Descending Colon:normal Sigmoid Colon: normal Rectum: Retroflexion with small internal hemorrhoids, grade I Anorectum - normal Colon preparation: [place] Bowel Preparation Scale Right colon; 1-2 Transverse colon: 1-2 Left colon; 1-2 (0 = Unprepared colon segment with mucosa not seen due to solid stool that cannot be cleared. 1 = Portion of mucosa of the colon segment seen, but other areas of the colon segment not well seen due to staining, residual stool and/or opaque liquid. 2 = Minor amount of residual staining, small fragments of stool and/or opaque liquid, but mucosa of colon segment seen well. 3 = Entire mucosa of colon segment seen well with no residual staining, small fragments of stool or opaque liquid) Impression and Post Procedure Diagnosis: Endoscopy Findings: mild gastritis Colonoscopy Findings: internal hemorrhoids Plan: Await Pathology results Repeat Colonoscopy in 6-8 months or earlier if clinically indicated High fiber diet leaflet avoid straining at stool, epsom salts and sitz bath, anusol supps or cream Above findings were reviewed with the patient and relevant handouts were provided if indicated.
[2024-03-08 10:10] VITALS: BP 102/50; PULSE 77; RESP 16; TEMP 36.3; O2SAT 98
[2024-03-08 10:25] VITALS: BP 129/68; PULSE 76; RESP 16; O2SAT 98
== END 2024-03-08 11:11 | disposition home or self-care (01) ==
PROVIDERS: Anesthesiology; PCP Family Medicine; Visit Provider Internal Medicine Gastroenterology
PROC: (CPT 45380; principal; 2024-03-08 09:50)
DX: K64.0 First degree hemorrhoids (principal); R10.13 Epigastric pain; G89.29 Other chronic pain; K29.70 Gastritis, unspecified, without bleeding; D64.9 Anemia, unspecified; Z90.49 Acquired absence of other specified parts of digestive tract
CPT/HCPCS: 45380; 43239; 81025; 88305; 88313; 88342; J1100; J1596; J2003; J2704

== ENCOUNTER → 2024-03-08 08:14 | Outpatient (BNV) | payer OTHER, SELFPAY | PROVIDERS: PCP Family Medicine; Visit Provider Internal Medicine Gastroenterology | DX: D64.9 Anemia, unspecified (principal); K29.70 Gastritis, unspecified, without bleeding; K64.8 Other hemorrhoids; Z91.199 Patient's noncompliance with other medical treatment and regimen due to unspecified reason | CPT/HCPCS: 43239; 45380 ==

== ENCOUNTER 2024-03-24 08:56 | Outpatient (REF) | payer OTHER, SELFPAY ==
[2024-03-25 19:19] LABS: IgA 310 mg/dL (47-310); IgG 1873 mg/dL (600-1640); IgM 158 mg/dL (50-300)
[2024-03-26 15:24] LABS: Transglutaminase Ab IgG <1.0 U/mL; Transglutaminase IgA <1.0 U/mL
[2024-03-29 16:13] LABS: Immunoglobulin G Subclass 1 925 mg/dL (382-929); Immunoglobulin G Subclass 2 563 mg/dL (241-700); Immunoglobulin G Subclass 3 63 mg/dL (22-178); Immunoglobulin G Subclass 4 14.5 mg/dL (4-86); Immunoglobulin G Total 1698 mg/dL (600-1640)
== END 2024-03-24 08:57 | disposition home or self-care (01) ==
LOC: HO.HHCL 08:56
PROVIDERS: Visit Provider Internal Medicine Gastroenterology
DX: Z91.018 Allergy to other foods (principal); R10.33 Periumbilical pain; G89.29 Other chronic pain; D64.9 Anemia, unspecified
CPT/HCPCS: 36415; 82784; 86003; 86364

== ENCOUNTER 2024-03-31 12:21 | Emergency (ER) | payer OTHER, SELFPAY ==
--- NOTE | ~2024-03-31 | XR_ITS ---
CLINICAL HISTORY: pain 1 view abdomen Comparison: None Findings: Surgical clips noted in the imaged right upper quadrant. Mild atelectasis partially imaged in the [id number]. No small bowel dilatation. Moderate to severe stool burden, including in the imaged cecum. Mild osteoarthritis of the imaged hips. Majority of the sacrum and SI joints are obscured. IMPRESSION: 1. No small bowel obstruction. 2. Moderate to severe stool burden. This document has been electronically signed by: Hererra Valdes MD on 03/31/2024 19:19:09
[2024-03-31 13:12] VITALS: BP 118/53; PULSE 107; RESP 18; TEMP 36.9; O2SAT 100; BMI 28.3
--- NOTE | 2024-03-31 13:13 | ED.GENADULT ---
HPI - General Adult General Chief complaint: Abdominal Pain Stated complaint: Abdominal Pain Time Seen by Provider: 03/31/24 18:15 Source: patient Limitations: no limitations History of Present Illness ED Provider: Michelle Renee PA-C HPI narrative: 38-year-old female with a history of chronic upper abdominal discomfort, gallstones, presents with left-sided abdominal pain for 3 weeks. Pain is intermittent, unable to describe the nature of her symptoms. Denies nausea, vomiting, diarrhea or constipation. Denies dysuria, hematuria, history of kidney stones, no fevers. Related Data Home Medications ?Medication ?Instructions ?Recorded ?Confirmed norgestimate-ethinyl estradiol 1 tab PO DAILY 02/02/24 03/08/24 0.18 mg/0.215mg/0.25mg-35 mcg(28)tablet (Tri-Linyah) ferrous sulfate 325 mg (65 mg 325 mg PO QAM 03/08/24 03/08/24 iron) tablet (FeroSul) Previous Rx's ?Medication ?Instructions ?Recorded ibuprofen 600 mg tablet 600 mg PO Q6H PRN pain #30 tabs 11/12/22 Allergies Allergy/AdvReac Type Severity Reaction Status Date / Time No Known Allergies Allergy Verified 03/31/24 13:15 Review of Systems Review of Systems: Yes all other systems are reviewed and are negative Constitutional: Constitutional: Denies fatigue and Denies fever(s) Cardiovascular: Cardiovascular: Denies chest pain and Denies dyspnea Respiratory: Respiratory: Denies cough and Denies dyspnea Gastrointestinal: Gastrointestinal: Reports abdominal pain, Denies constipation, Denies diarrhea, Denies nausea and Denies vomiting Genitourinary: Genitourinary: Denies hematuria and Denies dysuria Endocrine: Endocrine: Denies fatigue [facility] Past Medical History Attestation statement: The following information was validated with the patient. Medical History (Updated 03/31/24 @ 20:05 by ALFRED Gonzalez) Anemia Chronic epigastric pain Gallstones Surgical History History of laparoscopic cholecystectomy (~11/12/22) Surgical history unknown Social History Social History Alcohol intake: current Alcohol intake frequency: a few times a month Patient Tobacco Use Status: Never used Tobacco Smoked in Last 30 Days: No Use of substances other than those prescribed or required for medical reasons: No Advance Directives: No Advance Directives Information Provided: No Do you have a plan to hurt others: No Plan Physical Exam ED Vital Signs: Vital Signs - 24 hr 03/31/24 13:12 03/31/24 18:50 Temperature 98.4 F 97.8 F Pulse Rate 107 H 74 Respiratory Rate 18 18 Blood Pressure 118/53 L 112/62 Pulse Oximetry 100 100 Oxygen Delivery Method Room Air Room Air BMI result Body Mass Index 28.3 Const Other: Alert well-appearing Orientation/consciousness: patient oriented x3 Resp Effort & Inspection: normal respiratory effort Cardio Other: Normal peripheral perfusion GI Other: Abdomen is soft, nondistended nontender no guarding Back/Spine/Pelvis Other: No CVA tenderness Skin Other: Warm dry no rash Neuro General: patient oriented x3, gait normal, no focal motor deficits and CN's II-XI intact bilaterally Psych Other: Calm cooperative Course Course Course Narrative: RME, this is a rapid medical exam performed by Tucker Oliver please refer to primary provider for complete H&P- 38 year old female presents for evaluation of left sided abdominal pain. Her symptoms started 3 weeks ago and worsened 5 days ago. She has a history of chronic abdominal pain. She reports that she had a recent colonoscopy that showed internal hemorrhoids but no other pathology. Plan for labs, urinalysis will defer any advanced imaging to primary ER provider Medical Decision Making Medical Decision Making MDM Narrative: 38-year-old female with a history of chronic upper abdominal discomfort, gallstones, presents with left-sided abdominal pain for 3 weeks. Pain is intermittent, unable to describe the nature of her symptoms. Denies nausea, vomiting, diarrhea or constipation. Denies dysuria, hematuria, history of kidney stones, no fevers. Problem: Chronic abdominal pain, gallstones History: Per patient I have considered the following differential diagnoses: Gallstone pancreatitis, constipation, renal colic, diverticulitis Plan: Screening labs were obtained from triage and are unremarkable, obtaining a urine sample now. Given left-sided symptoms, I did consider renal colic, however she is not having any related symptoms, and her symptoms have been present for 3 weeks. Also thought about gallstone pancreatitis, she has a history of gallstones, however her pain is not within the upper abdomen it is more mid to lower abdomen. Thought about diverticulitis because of left-sided symptoms, however again she is not guarding on exam her exam was nonfocal, she has no active GI symptoms. I do believe she is likely constipated despite denying constipation. We will obtain a KUB. I have independently reviewed the following tests: Labs: No leukocytosis, not anemic, no electrolyte abnormality, not , urine not infected KUB:Findings: Surgical clips noted in the imaged right upper quadrant. Mild atelectasis partially imaged in the [id number]. No small bowel dilatation. Moderate to severe stool burden, including in the imaged cecum. Mild osteoarthritis of the imaged hips. Majority of the sacrum and SI joints are obscured. IMPRESSION: 1. No small bowel obstruction. 2. Moderate to severe stool burden. This document has been electronically signed by: Herrera Valdes MD on 03/31/2024 19:19:09 Lab Data 03/31/24 15:49 03/31/24 15:49 Labs: Lab Results 03/31/24 03/31/24 Range/Units 15:49 18:58 WBC 10.0 (4.8-10.8) X10*3/uL RBC 5.24 (4.20-5.50) X10*6/uL Hgb 11.7 L (12.0-16.0) g/dl Hct 38.6 (37.0-47.0) % MCV 73.7 L (80.0-98.0) fL MCH 22.3 L (27.0-33.0) pg MCHC 30.3 L (31.0-35.0) g/dl RDW 18.1 H (11.0-16.0) % Plt Count 363 (160-400) X10*3/uL MPV 9.8 (9.4-12.3) fL Immature Gran % (Auto) 0.4 (0.0-0.4) % Neut % (Auto) 70.3 (45-73) % Lymph % (Auto) 22.0 (20-40) % [place] % (Auto) 5.8 (2-11) % Eos % (Auto) 1.1 (0-4) % Baso % (Auto) 0.4 (0-2) % Lymph # (Auto) 2.2 (1.2-4.9) X10*3/uL [place] # (Auto) 0.6 (0.1-1.2) X10*3/uL Eos # (Auto) 0.1 (0.0-0.4) X10*3/uL Baso # (Auto) 0.0 (0.0-0.2) X10*3/uL Abs Immat Gran (auto) 0.04 H (0.00-0.03) X10*3/uL Absolute Neuts (auto) 7.0 (2.0-8.3) x10*3/uL Absolute Nucleated RBC 0.000 (0.0-0.012) X10*3/uL Nucleated RBC % (auto) 0.0 (0.0-0.2) /100WBC Sodium 138 (135-145) mmol/L Potassium 3.9 (3.3-5.1) mmol/L Chloride 105 (96-108) mmol/L Carbon Dioxide 24 (22-29) mmol/L Anion Gap 13 (12-20) BUN 10 (9-16) mg/dL Creatinine 0.69 (0.5-1.4) mg/dL Estim Creat Clear Calc 103.4 Estimated GFR > 60 Random Glucose 105 (60-115) mg/dL Calcium 9.2 (8.4-10.2) mg/dL Total Bilirubin 0.3 (0.0-1.0) mg/dL AST 29 (5-31) U/L ALT 17 (0-31) U/L Alkaline Phosphatase 137 H (39-117) U/L Total Protein 8.9 H (6.5-8.0) g/dL Albumin 4.0 (3.5-5.0) g/dL Lipase 40 (8-78) U/L Beta HCG, Quant < 2 mIU/mL Urine Color Yellow Urine Appearance Clear Urine pH 6.5 (5.0-9.0) Ur Specific [place] <= 1.005 (1.005-1.025) Urine Protein Negative (Neg-Trace) mg/dL Urine Glucose (UA) Negative (Negative) mg/dL Urine Ketones Negative (Negative) mg/dL Urine Blood Negative (Negative) Urine Nitrite Negative (Negative) Ur Leukocyte Esterase Negative (Negative) Urine RBC 0-2 (0-2) /HPF Urine WBC 0-5 (0-5) /HPF Ur Squamous Epith Cells 0-2 (0-2) /HPF Urine Bacteria None Seen (None Seen) Hyaline Casts 0-2 (0-2) /LPF Discharge Plan Discharge Clinical Impression: Constipation Patient Disposition: Home, Self-Care Instructions: Constipation (ED) Additional Instructions: All of your screening labs were completely normal, your urine is not infected. You were found to be constipated on the x-ray. See home care instructions. You need to start using [id number]-[id number] Colace, this is a stool softener, 1 to 2 times a day. In addition use [id number] MiraLax, 2 to 3 times a day, and she you begin having normal regular bowel movements. Follow up with your primary care provider as needed. Prescriptions: No Action ibuprofen 600 mg tablet 600 mg PO Q6H PRN (Reason: pain) Qty: 30 0RF ferrous sulfate [FeroSul] 325 mg (65 mg iron) tablet 325 mg PO QAM norgestimate-ethinyl estradiol [Tri-Linyah] 0.18/0.215/0.25 mg-35 mcg (28) tablet 1 tab PO DAILY Print Language: Serbian
[2024-03-31 15:52] LABS: MANUAL DIFF FLAG NO
[2024-03-31 15:53] LABS: Basophils Percent Auto 0.4 % (0-2); Eosinophils Absolute Auto 0.1 X10*3/uL (0.0-0.4); Eosinophils Percent Auto 1.1 % (0-4); Hematocrit 38.6 % (37.0-47.0); Hemoglobin 11.7 g/dl (12.0-16.0); Imm Gran Abs Auto 0.04 X10*3/uL (0.00-0.03); Imm Gran Pct Auto 0.4 % (0.0-0.4); Lymphocytes Absolute Auto 2.2 X10*3/uL (1.2-4.9); Mean Corpuscular HGB Conc 30.3 g/dl (31.0-35.0); Mean Corpuscular Hemoglobin 22.3 pg (27.0-33.0); Mean Corpuscular Volume 73.7 fL (80.0-98.0); Mean Platelet Volume 9.8 fL (9.4-12.3); Monocytes Absolute Auto 0.6 X10*3/uL (0.1-1.2); Monocytes Percent Auto 5.8 % (2-11); Neutrophils Percent Auto 70.3 % (45-73); Platelet Count 363 X10*3/uL (160-400); Red Blood Count 5.24 X10*6/uL (4.20-5.50); Red Cell Distribution Width 18.1 % (11.0-16.0)
[2024-03-31 16:18] LABS: Alanine Aminotransferase 17 U/L (0-31); Alkaline Phosphatase 137 U/L (39-117); Anion Gap 13 (12-20); Aspartate Amino Transferase 29 U/L (5-31); Bilirubin Total 0.3 mg/dL (0.0-1.0); Blood Urea Nitrogen 10 mg/dL (9-16); Calcium 9.2 mg/dL (8.4-10.2); Carbon Dioxide 24 mmol/L (22-29); Chloride 105 mmol/L (96-108); Creatinine Clr Calc Pharmacy 103.4; Estimated Glomerular Filt Rate > 60; Glucose Random 105 mg/dL (60-115); Lipase 40 U/L (8-78); Potassium 3.9 mmol/L (3.3-5.1); Sodium 138 mmol/L (135-145); Total Protein 8.9 g/dL (6.5-8.0)
[2024-03-31 18:39] LABS: HCG Quantitative < 2 mIU/mL
[2024-03-31 18:50] VITALS: BP 112/62; PULSE 74; RESP 18; TEMP 36.6; O2SAT 100
[2024-03-31 19:04] LABS: Appearance Urine Clear; Color Urine Yellow; Glucose Urine UA Negative (Negative); Leukocyte Esterase Urine Negative (Negative); Nitrite Urine Negative (Negative); PH 6.5 (5.0-9.0); Specific Gravity - Urine <= 1.005 (1.005-1.025); Urine Blood Negative (Negative); Urine Ketones Negative (Negative); Urine Protein Negative (Neg-Trace)
[2024-03-31 19:09] LABS: Bacteria Urine None Seen (None Seen); Hyaline Casts Urine 0-2 /LPF (0-2); RBC Urine 0-2 /HPF (0-2); Squamous Epithelial Cell Urine 0-2 /HPF (0-2); WBC Urine 0-5 /HPF (0-5)
[2024-03-31 20:35] VITALS: BP 112/62; PULSE 74; RESP 18; TEMP 36.6; O2SAT 100
== END 2024-03-31 20:36 | disposition home or self-care (01) ==
PROVIDERS: Physician Assistant; Physician Assistant Medical; Emergency Provider Emergency Medicine; PCP Family Medicine
DX: K59.00 Constipation, unspecified (principal); R10.2 Pelvic and perineal pain; Z79.899 Other long term (current) drug therapy
CPT/HCPCS: 36415; 74018; 80053; 81001; 83690; 84702; 85025; 99283; 99284

== ENCOUNTER → 2024-03-31 18:22 | Outpatient (BNV) | payer OTHER, SELFPAY | PROVIDERS: Emergency Provider Emergency Medicine; PCP Family Medicine; Visit Provider Radiology Neuroradiology | DX: K56.41 Fecal impaction (principal) | CPT/HCPCS: 74018 ==

== ENCOUNTER 2024-11-11 07:33 | Outpatient (REF) | payer OTHER, SELFPAY ==
--- NOTE | ~2024-11-11 | MM_ITS ---
EXAMINATION: MM SCREENING DIGITAL BREAST TOMOSYNTHESIS, BILATERAL CLINICAL INFORMATION: Screening. Asymptomatic. COMPARISON: None. This is a baseline study. TECHNIQUE: Digital breast tomosynthesis is performed in mediolateral oblique and craniocaudal views along with computer-aided detection (CAD). FINDINGS: BREAST COMPOSITION: The breasts are heterogeneously dense, which may obscure small masses (ACR BI-RADS breast composition Category c). BILATERAL BREASTS: No significant masses, suspicious calcifications or other abnormalities are seen in either breast. MM/MM tomosynthesis screening BI IMPRESSION: BILATERAL BREASTS: Negative, no mammographic evidence of malignancy. Normal interval follow-up is recommended in 12 months. ASSESSMENT: BI-RADS 1 - Negative RECOMMENDATION: Routine annual mammography screening. FOLLOW-UP: 1 year F/U This examination should not preclude the clinical evaluation of a suspicious palpable abnormality. This patient's information was entered into a reminder system with a target due date for their next mammogram. Electronically signed by: Iglesia Jones MD 11/13/2024 03:56 PM EDT
--- OUTSIDE RECORDS SUMMARY | 2024-11-11 07:34 | XMS_ITS | Encounter Summary ---
Author Organization [employer] Address [address] [place] [address] [address] [place] [address] Care Team Providers Care Studio Potter Name Role Phone Cornelia Cabrera MD Primary Care Provider Encounter Details Date Type Department Care Team (Latest Contact Info) Description 08/24/2018 Abstract [facility] Dental, Provider, DDS Social History Tobacco Use Types Packs/Day Years Used Date Smoking Tobacco: Never Assessed Comments Unknown Sex and Gender Information Value Date Recorded Sex Assigned at Female 01/14/2022 10:25 AM EDT Legal Sex Female 10:25 AM EDT Gender Identity Female 01/14/2022 10:25 AM EDT Sexual Orientation Straight 01/14/2022 10 :25 AM EDT documented as of this encounter Plan of Treatment Upcoming Encounters Date Type Department Care Team (Late st Contact Info) Description 11/17/2024 9:45 AM EDT Office Visit [facility] [address], [place] [id number] Cornelia Cabrera MD [address] [place] [address] documented as of this encounter Visit Diagnoses Not on filedocumented in this encounter Care Teams Studio Potter Relationship Specialty Start Date End Date Cornelia Cabrera MD [address] [place], [place] [phone] PCP - General Family Medicine 11/01/21 documented as of this encounter
--- OUTSIDE RECORDS SUMMARY | 2024-11-11 07:34 | XMS_ITS | Clinical Summary ---
Author Organization [employer] Address [address] [place] [address] 7t [place] [address] Care Team Providers Care Seeing Eye Dog Teacher Name Role Phone Cornelia Cabrera MD Primary Care Provider [phone] Allergies No known active allergies Medications clobetasol (Temovate) 0.05 % gelIndications:A lopecia areata Apply on alopecia lesions twice daily 30 g 1 12/21/19 23 Active Fluocinolone Acetonide Scalp ([place]-Smoothe/F S Scalp) 0.01 % oilIndications:S eborrheic dermatitis Apply at night 2 times weekly , apply covering 118.28 mL 2 12/21/19 23 Active fluticasone (Flonase) 50 MCG/ACT nasal sprayIndications :Non-seasonal allergic rhinitis due to other allergic trigger SPRAY 1 SPRAY IN EACH NOSTRIL TWICE DAILY 48 g 1 01/22/20 23 Active ketoconazole (NIZOral) 2 % shampooIndicatio ns:Seborrheic dermatitis USE TO WASH HAIR TWICE WEEKLY AT LEAST 3 DAYS APART FOR 4 WEEKS 120 mL 01/25/20 23 Active Bismuth Subsalicylate 262 MG tablet Take 2 tablets by mouth 4 times daily 112 tablet 11/07/19 24 Active omeprazole (PriLOSEC) [address] capsule Take 1 capsule (20 mg) by mouth 2 times daily for 14 days. 28 capsule 11/07/19 24 Active Omeprazole 20 MG tablet delayed-release Take 1 tablet by mouth 2 times daily. 09/25/19 24 Active ferrous sulfate (Fe Tabs) 325 (65 Fe) MG EC tablet Take 1 tablet (325 mg) by mouth with breakfast and with evening meal. Do not crush, chew, or split. 60 tablet 5 11/25/19 24 025 Active Tri-Linyah 0.18/0.215/0.25 MG-35 MCG tablet Take 1 tablet by mouth in the morning. 84 tablet 3 10/26/19 25 Active Tri-Linyah 0.18/0.215/0.25 MG-35 MCG tablet TAKE 1 TABLET BY MOUTH ONCE DAILY IN THE MORNING 84 tablet 3 12/25/19 24 025 Discontinued(R eorder (will not trigger notification to Pharmacy)) Active Problems Problem Noted Date Diagnosed Date Anemia 11/07/2023 Assessment & Plan (11/07/2023 5:37 AM EDT): - mild, in a setting of AUB and epigastric pain - continue iron supplementation - upcoming appointment with GI for EGD evaluation - recheck lab in 1-2 months Family history of diabetes mellitus 11/07/2023 Epigastric abdominal pain 11/04/2023 Assessment & Plan (11/04/2023 2:21 PM EDT): - s/p cholecystectomy in October 2022 - scheduled for EGD evaluation in December 2023 - patient was prescribed omeprazole but has not taken yet, recommended to try - will check H.pylori Abnormal uterine bleeding (AUB) 07/11/2023 Assessment & Plan (11/07/2023 5:40 AM EDT): - US in July 2023 was benign - Seen by Fauzia anderson on 10/29/23 LSIL with negative high-risk HPV - continue OCP Assessment & Plan (07/11/2023 2:00 PM EDT): With persistent spotting, HCG negative -referred for pelvic US -check BV panel -will have pap appt scheduled -check basic labs -consider eval with CRITICAL CARE CLINICAL NURSE SPECIALIST if no improvement -advised contact [facility] if sx change or worsen Alopecia areata 12/20/2022 Assessment & Plan (12/20/2022 9:42 AM EDT): Discussed and will use Clobetasol Gel BID as needed Seborrheic dermatitis 12/20/2022 Assessment & Plan (12/20/2022 9:43 AM EDT): Initiate DermaSmoothe FS Scalp oil on damp-scalp while occluded overnight and wash out with 2% Ketoconazole Shampoo in the morning; Use once weekly. Vitamin D deficiency 11/08/2022 Assessment & Plan (11/07/2023 5:40 AM EDT): - continue vitamin D supplementation - encourage to increase dietary vitamin D intake Assessment & Plan (11/08/2022 1:49 PM EDT): - continue vitamin D supplementation - encourage to increase dietary vitamin D intake Hair loss 11/08/2022 Assessment & Plan (11/04/2023 2:21 PM EDT): - seen by derm provider in December 2022, prescribed clobetasol Assessment & Plan (11/08/2022 1:50 PM EDT): - no bald spots - trial of minoxidil - use hypoallergenic unscented skin and hair care products Overweight 11/08/2022 Assessment & Plan (11/07/2023 5:40 AM EDT): - continue working on lifestyle modifications Assessment & Plan (11/08/2022 1:54 PM EDT): - continue working on lifestyle modifications Resolved Problems Problem Noted Date Diagnosed Date Resolved Date Calculus of gallbladder with chronic cholecystitis without obstruction 11/08/20222023 Assessment & Plan (11/08/2022 1:52 PM EDT): - scheduled for cholecystectomy on 11/12/22. - pt has functional level > 4 METs. Pt is low-risk for developing significant cardiopulmonary complications. Encounters Date Type Department Care Team Description 11/10/2024 Patient Outreach [facility] [address] [place] [phone] Cornelia Cabrera MD Pre-visit Planning (SDOH screening completed on 10/25/2024) 10/25/2024 9:15 AM EDT Office Visit [facility] [address] [place] [address] Fauzia Rivera CNM Surveillance of previously prescribed contraceptive pill (Primary Dx); Breast cancer screening by mammogram 10/25/2024 Telephone [facility] [address] [place] [address] Cornelia Cabrera MD insurance 10/25/2024 Travel 10/22/2024 Telephone [facility] [address] [place] [address] Cornelia Cabrera MD Insurance 10/22/2024 Telephone [facility] [address] [place] [address] Cornelia Cabrera MD chartprep from Last 3 Months Family History Medical History Relation Name Comments Diabetes Mother Diabetes Mother's Sister 1 Thyroid disease Mother's Sister 1 Cancer Mother's Sister 2 Relation Name Status Comments Mother Mother's Sister 1 Mother's Sister 2 Social History Tobacco Use Types Packs/Day Years Used Date Smoking Tobacco: Never Passive Smoke Exposure: Never Smokeless Tobacco: Never Tobacco Cessation:Counseling Given: Not Answered Depression Answer Date Recorded Patient Health Questionnaire-9 Score 0 11/04/2023 Patient Health Questionnaire-9 Score 0 11/04/2023 Last PHQ-9: Questionnaire Data Not on file 0 11/04/2023 Housing Stability Answer Date Recorded What is your housing situation today? I have shanikaabida de luna 10/25/[address] you li ve. Do you have problems with any of the following? None of the above 10/25/2024 Food Insecurity Answer Date Recorded Within the past 12 months, y ou worried that your food would run out before you got money to buy more: Never True 01/13/2023 Within the past 12 months,th e food you bought just didn't last and you didn't have enough money to get more: Never True Transportation Answer Date Recorded In the past 12 months, has l ack of transportation kept you from medical appts, meetings, work or from getting things needed for daily living? No 10/22/2023 Utilities Answer Date Recorded In the past 12 months, has t he electric, gas, oil or water [employer] threatened to shut off services in your home? No 01/13/2023 Depression Answer Date Recorded Patient Health Questionnaire-2 Score 0 11/04/2023 Internet Access Answer Date Recorded Internet Access Q1 Yes 11/07/2024 Internet Access Q2 Not on file 11/07/2024 Comments No Intention Date Recorded No desire to become (finding) 0 10/25/2024 Sex and Gender Information Value Date Recorded Sex Assigned at Female 01/14/2022 10:25 AM EDT Legal Sex Female 10:25 AM EDT Gender Identity Female 01/14/2022 10:25 AM EDT Sexual Orientation Straight 01/14/2022 10 :25 AM EDT Last Filed Vital Signs Vital Sign Reading Time Taken Comments Blood Pressure 102/72 10/25/2024 9:18 AM EDT Pulse 70 10/25/2024 9:18 AM EDT Temperature 36.5 C (97.7 F) 10/25/2024 9:18 AM EDT Respiratory Rate 12 10/25/2024 9:18 AM EDT Oxygen Saturation 100% 10/25/2024 9:18 AM EDT Inhaled Oxygen Concentration - - Weight 67 kg (147 lb 9.6 oz) 10/25/2024 9:18 AM EDT Height 160 cm (5' 3 ) 11/04/2023 1:41 PM EDT Body Mass Index 26.15 11/04/2023 1:41 PM EDT Plan of Treatment Upcoming Encounters Date Type Department Care Team (Late st Contact Info) Description 11/17/2024 9:45 AM EDT Office Visit [facility] [address] [place] [address] Cornelia Carbera MD [address] [place] [address] Health Maintenance Due Date Last Done Comments HPV Vaccines (1 - 3-dose series) 12/27/1998 COVID-19 Vaccine ( season) 2023 03/30/2021, 07/05/2020, 06/12/2020 Mammogram 2023 Depression Screening 11/03/2024 11/04/2023, 11/04/19 24 Influenza Vaccine (#1) 2024 , 05/27/2018, 01/13/2017, Additional history exists DTaP/Tdap/Td Vaccines (2 - Td or Tdap) 09/04/2025 09/05/2015 Alcohol/Substance Use Screening 10/25/2025 10/25/2024 Disability Screening 10/25/2025 10/25/2024 Family Planning (PISQ) 10/25/2025 10/25/2024 SDOH Screening 10/25/2025 10/25/2024 Tobacco Screening 10/25/2025 10/25/2024 Cervical Cancer Screening 10/28/2026 HPV/Cotest 10/28/2026 10/29/2023, 05/15, 01/13/2017 Pap Smear 10/28/2026 10/29/2023, 05/30/2020 Zoster Vaccines (1 of 2) 12/27/2033 RSV Patients and Patients Aged 60 years or older (1 - 1-dose 75+ series) 12/27/2058 Hepatitis B Vaccines Completed 01/13/2017, 09/19/2015, 03/24/2013 HIV Screening Completed 11/04/2023, 10/15, 11/01/2021 Hepatitis C Screening Completed 11/04/2023 , 10/30/2022, 11/01/2021 HIB Vaccines Aged Out No longer eligi ble based on patient's age to complete this topic Hepatitis A Vaccines Aged Out No long er eligible based on patient's age to complete this topic IPV Vaccines Aged Out No longer eligi ble based on patient's age to complete this topic Meningococcal B Vaccine Aged Out No l onger eligible based on patient's age to complete this topic Meningococcal Vaccine Aged Out No renée rosy eligible based on patient's age to complete this topic Pneumococcal Vaccine: Pediatrics (0 to 5 Years) and At-Risk Patients (6 to 49) Years Aged Out No longer eligible based on patient's age to complete this topic RSV under 20 months Aged Out No longe r eligible based on patient's age to complete this topic Rotavirus Vaccines Aged Out No longer eligible based on patient's age to complete this topic Procedures Procedure Name Priority Date/Time Associated Diagnosis Comments HEPATITIS C AB W/REFL TO HCV RNA, QN, PCR Routine 11/04/2023 2:42 PM EDT Routine screening for STI (sexually transmitted infection) HIV 1/2 ANTIGEN/ANTIBODY, FOURTH GENERATION W/RFL Routine 11/04/2023 2:42 PM EDT Routine screening for STI (sexually transmitted infection) THINPREP IMAGING PAP AND HPV MRNA E6/E7 Routine 10/29/2023 12:00 AM EDT from Last 3 Months or Most Recently Relevant to Health Maintenance Results * Hepatitis C Antibody with Reflex to HCV, RNA, Quantitative, Real-Time PCR (11/04/2023 2:42 PM EDT) Hepatitis C Antibody Nonreactive Nonreactive [facility] Comment:Antibodies to HCV no t detected; does not exclude early acuteHCV infection. Blood Venous blood specimen / Unknown 11/04/2023 2:42 PM EDT 11/04/2023 4:03 PM EDT us Cornelia Cabrera MD LAB BLOOD ORDERABLES Final Resul t [facility] [address] [place] [phone] * HIV-1/2 Antigen and Antibodies, Fourth Generation, with Reflexes (11/04/2023 2:42 PM EDT) HIV AB/AG Nonreactive Nonreactive [facility] Comment:HIV-1 p24 Ag and/or HIV-1/HIV-2 Ab not detected.A test result that is nonreactive does not exclude thepossibility of exposure to or infection with HIV-1 and/orHIV-2. Nonreactive results in this assay for individualswith prior exposure to HIV-1 and/or HIV-2 may be due toantigen and antibody levels that are below the limit ofdetection of this assay.The [employer] HIV Ag/Ab Combo assay result andsupplemental assay results should be interpreted inconjunction with the patient's clinical presentation,history and other laboratory results. If the results areinconsistent with clinical evidence, additional testing issuggested to confirm the result. Blood Venous blood specimen / Unknown 11/04/2023 2:42 PM EDT 11/04/2023 4:03 PM EDT us Cornelia Cabrera MD LAB BLOOD ORDERABLES Final Resul t [facility] [address] [place] [address] [phone] * (ABNORMAL) ThinPrep Imaging Pap and HPV mRNA E6/E7 (10/29/2023 12:00 AM EDT) HPV nRNA E6/E7 Not Detected Not Detected [facility] Comment:Methodology: Transcr iption-Mediated AmplificationThis assay detects E6/E7 viral messenger RNA (mRNA) from 14high-risk HPV types (16,18,31,33,35,39,45,51,52,56,58,59,66,68).Cervical sources are required for HPV testing.If a vaginal source from a patient who has had atotal hysterectomy with removal of cervix wassubmitted, please contact the testing laboratoryfor alternative testing options.For additional information, please refer tohttp://education.Confer/faq/WSE690l5(This link if provided for information/educational purposes only.)THIS TEST WAS PERFORMED AT:[facility] [place] [phone] BEASLEY MD SOURCE: SEE NOTE [facility] Comment:None given Report Status: TNP [facility] Clinical Information: SEE NOTE [facility] Comment:None given LMP: SEE NOTE [facility] Comment:NONE GIVEN Prev. PAP: SEE NOTE [facility] Comment:NONE GIVEN Prev. BX: SEE NOTE [facility] Comment:NONE GIVEN Statement Of Adequacy: SEE NOTE [facility] Comment:Satisfactory for arely luation.Endocervical/transformation zone componentpresent. General Categorization: SEE NOTE(A) [facility] Comment:Cytology Results: Ep ithelial Cell Abnormality Interpretation/Resul t: SEE NOTE(A) [facility] Comment:Low Grade Squamous I ntraepithelial Lesion (LSIL) Cytology Comment SEE NOTE [facility] Comment:This Pap test has be en evaluated with computerassisted technology. Warehouse Team Member: SEE NOTE [facility] Comment:SL, CT(ASCP)CT scree ivy location: [place] [address] Review Warehouse Team Member: [facility] Pathologist SEE NOTE [facility] Comment:Layo Meeks M.D./M.S .,Board Certified in Anatomic Pathology andBoard Eligible Cytopathology(electronic signature)Consulting [address] [phone] PAP Infection [facility] See Note SEE NOTE [facility] Comment:EXPLANATORY NOTE:The Pap is a screening test for cervical cancer. It isnot a diagnostic test and is subject to false negativeand false positive results. It is most reliable when asatisfactory sample, regularly obtained, is submittedwith relevant clinical findings and history, and whenthe Pap result is evaluated along with historic andcurrent clinical information. 10/29/2023 10/29/2023 Narrative [facility] - 11/04/2023 11:55 AM EDT SEE RESULTS IN EMR Fauzia HERRERA LAB PATHOLOGY ORDERABLES Final Result [facility] [address] [place] [address] [phone] from Last 3 Months or Most Recently Relevant to Health Maintenance Insurance [facility] 2 Care Teams Seeing Eye Dog Teacher Relationship Specialty Start Date End Date Cornelia Cabrera MD [address] [place] [phone] PCP - General Family Medicine 11/01/21
--- OUTSIDE RECORDS SUMMARY | 2024-11-11 07:34 | XMS_ITS | Encounter Summary ---
Author Organization [employer] Address [address] [place] [address] 7t [place] [address] Care Team Providers Care Studio Manager Name Role Phone Cornelia Cabrera MD Primary Care Provider [phone] Encounter Details Date Type Department Care Team (Latest Contact Info) Description 06/19/2020 Abstract [facility] CONVERSIONS Dental, Provider, DDS Social History Tobacco [...] Description 11/17/2024 9:45 AM EDT Office Visit [facility] [address] [place] [address] Cornelia Cabrera MD [address] [place] [address] documented as of this encounter Visit Diagnoses Not on filedocumented in this encounter Care Teams Studio Manager Relationship Specialty Start Date End Date Cornelia Cabrera MD [address] [place], [place] [phone] PCP - General Family Medicine 11/01/21 documented as of this encounter
--- OUTSIDE RECORDS SUMMARY | 2024-11-11 07:34 | XMS_ITS | Encounter Summary ---
Author Organization [employer] Address [address] [facility] 7t [place] [address] Care Team Providers Care Physician/Allergy/Immunology Name Role Phone Cornelia Cabrera MD Primary Care Provider [phone] Encounter Details Date Type Department Care Team ([facility] st Contact Info) Description 11/07/2023 Orders Only [facility] [address] [place], [place] [phone] Cornelia Cabrera MD [address] [place], [place] [phone] Helicobacter pylori gastritis (Primary Dx) Social History Tobacco Use Types Packs/Day Years Used Date Smoking Tobacco: Never Passive Smoke Exposure: Never Smokeless Tobacco: Never Depression Answer Date Recorded Patient Health Questionnaire-9 Score 0 11/04/2023 Patient Health Questionnaire-9 Score 0 11/04/2023 Last PHQ-9: Questionnaire Data Not on file 0 11/04/2023 Housing Stability Answer Date Recorded What is your housing situation today? I have shanika de luna 11/04/[address] you li ve. Do you have problems with any of the following? I am not sure;None of the above 11/04/2023 Food Insecurity Answer Date Recorded Within the [...] t he electric, gas, oil or water company threatened to shut off services in your home? No 01/13/2023 Depression Answer Date Recorded Patient Health Questionnaire-2 Score 0 11/04/2023 Comments Unknown Sex and Gender Information Value [...] Description 11/17/2024 9:45 AM EDT Office Visit [facility] [address] [place] [address] Cornelia Cabrera MD [address] [place] [address] documented as of this encounter Visit Diagnoses Diagnosis Helicobacter pylori gastritis- Primary documented in this encounter Additional Health Concerns Assessment Noted Time PHQ-9 Depression Total Score: 0 11/04/19 24 1:44 PM EDT documented as of this encounter Care Teams Physician/Allergy/Immunology Relationship Specialty Start Date End Date Cornelia Cabrera MD [address] [place] [phone] PCP - General Family Medicine 11/01/21 documented as of this encounter
--- OUTSIDE RECORDS SUMMARY | 2024-11-11 07:34 | XMS_ITS | Encounter Summary ---
Author Organization [employer] Address [address] [place] [address] [address] [place] [address] Care Team Providers Care Cook Frozen Dessert Name Role Phone Cornelia Cabrera MD Primary Care Provider [phone] Reason for Visit * Reason Comments Med Refill Encounter Details Date Type Department Care Team (Late st Contact Info) Description 03/19/2022 Refill [facility] [address] [place], [place] [phone] Cornelia Cabrera MD [address] [place], [place] [phone] Seborrheic dermatitis Social History Tobacco Use Types Packs/Day Years [...] 11/17/2024 9:45 AM EDT Office Visit [facility] [address] [place], [place] [phone] Cornelia Cabrera MD [address] [place], [place] [phone] documented as of this encounter Visit Diagnoses Diagnosis Seborrheic dermatitis Unspecified seborrheic dermatitis documented in this encounter Care Teams Cook Frozen Dessert Relationship Specialty Start Date End Date Cornelia Cabrera MD [address] [place] [address] PCP - General Family Medicine 11/01/21 documented as of this encounter
--- OUTSIDE RECORDS SUMMARY | 2024-11-11 07:34 | XMS_ITS | Encounter Summary ---
Author Organization [employer] Address [address] [facility] 7t [place] [address] Care Team Providers Care Md Pediatric Allergist Name Role Phone Cornelia Cabrera MD Primary Care Provider [phone] Encounter Details Date Type Department Care Team ([facility] st Contact Info) Description 07/15/2023 Orders Only [facility] [address] [place], [place] [phone] China Oswald DO [address] [place], [place] [phone] Social History Tobacco Use Types Packs/Day Years Used Date Smoking Tobacco: Never Passive Smoke Exposure: Never Smokeless Tobacco: Never Depression Answer Date Recorded Patient Health Questionnaire-9 Score 0 10/29/2022 Housing Stability Answer Date Recorded What is your housing situation today? I have shanikaabida de luna 01/13/[address] you li ve. Do you have problems with any of the following? None of the above 01/13/2023 Food Insecurity Answer Date Recorded Within the past 12 months, y ou worried that your food would run out before you got money to buy more: Never True 01/13/2023 Within the past 12 months,th e food you bought just didn't last and you didn't have enough money to get more: Never True Utilities Answer Date Recorded In the past 12 months, has t he electric, gas, oil or water company threatened to shut off services in your home? No 01/13/2023 Depression Answer Date Recorded Patient Health Questionnaire-2 Score 0 10/29/2022 Comments Unknown Sex and Gender Information Value [...] Description 11/17/2024 9:45 AM EDT Office Visit [facility] [address] [place] [address] Cornelia Cabrera MD [address] [place] [address] documented as of this encounter Visit Diagnoses Not on filedocumented in this encounter Additional Health Concerns Assessment Noted Time PHQ-9 Depression Total Score: 0 10/30/19 23 10:55 AM EDT documented as of this encounter Care Teams Md Pediatric Allergist Relationship Specialty Start Date End Date Cornelia Cabrera MD [address] [place] [address] PCP - General Family Medicine 11/01/21 documented as of this encounter
--- OUTSIDE RECORDS SUMMARY | 2024-11-11 07:34 | XMS_ITS | Encounter Summary ---
Author Organization [employer] Address [address] [place] [address] 7t [place] [address] Care Team Providers Care Safety Attendant Name Role Phone Cornelia Cabrera MD Primary Care Provider [phone] Encounter Details Date Type Department Care Team (Latest Contact Info) Description 11/12/2021 Abstract [facility] CONVERSIONS Dental, Provider, DDS Social History Tobacco [...] Description 11/17/2024 9:45 AM EDT Office Visit [facility] [address] [place] [address] Cornelia Cabrera MD [address] [place] [address] documented as of this encounter Visit Diagnoses Not on filedocumented in this encounter Care Teams Safety Attendant Relationship Specialty Start Date End Date Cornelia Cabrera MD [address] [place], [place] [phone] PCP - General Family Medicine 11/01/21 documented as of this encounter
--- OUTSIDE RECORDS SUMMARY | 2024-11-11 07:34 | XMS_ITS | Encounter Summary ---
Author Organization [employer] Address [address] [place] [address] 7t [place] [address] Care Team Providers Care Commissioned Police Officer Name Role Phone Cornelia Caberra MD Primary Care Provider [phone] Encounter Details Date Type Department Care Team (Late st Contact Info) Description 10/30/2022 Orders Only [facility] MED[facility]INE [address] [place] [phone] Cornelia Cabrera MD [address] [place] [phone] Anemia, unspecified type (Primary Dx) Social History Tobacco Use Types Packs/Day Years Used Date Smoking Tobacco: Never Passive Smoke Exposure: Never Smokeless Tobacco: Never Depression Answer Date Recorded Patient Health Questionnaire-9 Score 0 10/29/2022 Depression Answer Date Recorded Patient Health Questionnaire-2 [...] Description 11/17/2024 9:45 AM EDT Office Visit [facility] [address] [place] [phone] Cornelia Cabrera MD [address] [place] [address] [phone] Scheduled Orders Name Type Priority Associated Diagnoses Orde r Schedule CBC auto differential Lab Routine Anemia, unspecified type Expected: 10/30/2022 (Approximate), Expires: 10/31/2023 Ferritin Lab Routine Anemia, unspecified type Expected: 10/30/2022 (Approximate), Expires: 10/31/2023 Iron And Total Iron Binding Capacity Lab Routine Anemia, unspecified type Expected: 10/30/2022, Expires: 10/31/2023 documented as of this encounter Visit Diagnoses Diagnosis Anemia, unspecified type- Primary documented in this encounter Additional Health Concerns Assessment Noted Time PHQ-9 Depression Total Score: 0 10/30/19 23 10:55 AM EDT documented as of this encounter Care Teams Commissioned Police Officer Relationship Specialty Start Date End Date Cornelia Cabrera MD [address] [place] [phone] PCP - General Family Medicine 11/01/21 documented as of this encounter
--- OUTSIDE RECORDS SUMMARY | 2024-11-11 07:34 | XMS_ITS | Encounter Summary ---
Author Organization [employer] Address 75 [facility] 7t [place] [address] Care Team Providers Care Director Hematology Name Role Phone Cornelia Cabrera MD Primary Care Provider [phone] Encounter Details Date Type Department Care Team ([facility] st Contact Info) Description 11/25/[address] [facility] MEDICINE [address] [place], [place] [phone] Cornelia Cabrera MD [address] [place], [place] [phone] Social History Tobacco Use Types Packs/Day Years Used Date Smoking Tobacco: Never Passive Smoke Exposure: Never Smokeless Tobacco: Never Depression Answer Date Recorded Patient Health Questionnaire-9 Score 0 11/04/2023 Patient Health Questionnaire-9 Score 0 11/04/2023 Last PHQ-9: Questionnaire Data Not on file 0 11/04/2023 Housing Stability Answer Date Recorded What is your housing situation today? I have shanikaabida de luna 11/04/[address] [...] Answer Date Recorded Internet Access Q1 Yes 11/16/2023 Internet Access Q2 I do not want or need it 03/2023 Comments Unknown Sex and Gender Information Value [...] Description 11/17/2024 9:45 AM EDT Office Visit [facility] [address] [place] [address] Cornelia Cabrera MD [address] [place] [address] documented as of this encounter Visit Diagnoses Not on filedocumented in this encounter Additional Health Concerns Assessment Noted Time PHQ-9 Depression Total Score: 0 11/04/19 24 1:44 PM EDT documented as of this encounter Care Teams Director Hematology Relationship Specialty Start Date End Date Cornelia Cabrera MD [address] [place] [address] PCP - General Family Medicine 11/01/21 documented as of this encounter
--- OUTSIDE RECORDS SUMMARY | 2024-11-11 07:34 | XMS_ITS | Encounter Summary ---
Author Organization [employer] Address 75 [facility] 7 [place] [address] Care Team Providers Care Tool And Die Supervisor Name Role Phone Cornelia Cabrera MD Primary Care Provider [phone] Reason for Visit * Reason Comments Pre-visit Planning SDOH screening compl eted on 10/25/2024 Encounter Details Date Type Department Care Team ([facility] st Contact Info) Description 11/10/2024 Patient Outreach [facility] [address] [place], [place] [phone] Cornelia Cabrera MD [address] [place], [place] [phone] Pre-visit Planning (SDOH screening completed on 10/25/2024) Social History Tobacco Use Types Packs/Day Years Used Date Smoking Tobacco: Never Passive Smoke Exposure: Never Smokeless Tobacco: Never Depression Answer Date Recorded Patient Health Questionnaire-9 Score 0 11/04/2023 Patient Health Questionnaire-9 Score 0 11/04/2023 Last PHQ-9: Questionnaire Data Not on file 0 11/04/2023 Housing Stability Answer Date Recorded What is your housing situation today? I have shanika de luna 10/25/[address] [...] Q2 Not on file 11/07/2024 Comments No Sex and Gender Information Value Date Recorded Sex Assigned at Female 01/14/2022 10:25 AM EDT Legal Sex Female 10:25 AM EDT Gender Identity Female 01/14/2022 10:25 AM EDT Sexual Orientation Straight 01/14/2022 10 :25 AM EDT documented as of this encounter Progress Notes * Cammie Lainez - 11/10/2024 8:44 AM EDT CC Cammie placed successful outbound call to patient for pre-visit planning. Patient name and confirmed. Patient confirms appt date and time, and has transportation. Biggest concern for appointment at this time is none Patient advised to bring to appointment a photo id and insurance card. Appropriate screenings completed in anticipation of appointment. documented in this encounter Plan of Treatment Upcoming Encounters Date Type Department Care Team (Late st Contact Info) Description 11/17/2024 9:45 AM EDT Office Visit [facility] [address] [place] [address] Cornelia Cabrera MD [address] [place] [address] documented as of this encounter Visit Diagnoses Not on filedocumented in this encounter Additional Health Concerns Assessment Noted Time PHQ-9 Depression Total Score: 0 11/04/19 24 1:44 PM EDT documented as of this encounter Care Teams Tool And Die Supervisor Relationship Specialty Start Date End Date Cornelia Cabrera MD [address] [place] [address] PCP - General Family Medicine 11/01/21 documented as of this encounter
== END 2024-11-11 07:34 | disposition home or self-care (01) ==
LOC: HO.MAMMO 07:33
PROVIDERS: PCP Family Medicine; Visit Provider Advanced Practice Midwife
DX: Z12.31 Encounter for screening mammogram for malignant neoplasm of breast (principal)
CPT/HCPCS: 77063; 77067

== ENCOUNTER → 2024-11-11 07:45 | Outpatient (BNV) | payer OTHER, SELFPAY | PROVIDERS: PCP Family Medicine; Visit Provider Radiology Body Imaging | DX: Z12.31 Encounter for screening mammogram for malignant neoplasm of breast (principal) | CPT/HCPCS: 77063; 77067 ==

== ENCOUNTER 2024-11-17 10:08 | Outpatient (REF) | payer OTHER, SELFPAY ==
--- OUTSIDE RECORDS SUMMARY | 2024-11-17 09:45 | XMS_ITS | Encounter Summary ---
Author Organization [employer] Address [address] [place] [address] 7 [place] [address] Care Team Providers Care Ready Mix Truck Driver Name Role Phone Cornelia Cabrera MD Primary Care Provider [phone] Reason for Visit * Reason Comments Annual Exam Encounter Details Date Type Department Care Team ([facility] st Contact Info) Description 11/17/2024 9:45 AM EDT Office Visit [facility] MEDICINE [address] [place], [place] [phone] Cornelia Cabrera MD [address] [place], [place] [phone] Routine general medical examination at a health care facility (Primary Dx); Vitamin D deficiency; Family history of diabetes mellitus; Weight loss; Screening for diabetes mellitus; Routine screening for STI (sexually transmitted infection); Anemia, unspecified type Social History Tobacco Use Types Packs/Day Years Used Date Smoking Tobacco: Never Passive Smoke Exposure: Never Smokeless Tobacco: Never Depression Answer Date Recorded Patient Health Questionnaire-9 Score 0 11/17/2024 Patient Health Questionnaire-9 Score 0 11/17/2024 Last PHQ-9: Questionnaire Data Not on file 0 11/17/2024 Housing Stability Answer Date Recorded What is [...] Date Recorded Patient Health Questionnaire-2 Score 0 11/17/2024 Internet Access Answer Date Recorded Internet Access Q1 Yes 11/07/2024 Internet Access Q2 Not on file 11/07/2024 Comments No Sex and Gender Information Value Date Recorded Sex Assigned at Female 01/14/2022 10:25 AM EDT Legal Sex Female 10:25 AM EDT Gender Identity Female 01/14/2022 10:25 AM EDT Sexual Orientation Straight 01/14/2022 10 :25 AM EDT documented as of this encounter Last Filed Vital Signs Vital Sign Reading Time Taken Comments Blood Pressure 112/80 11/17/2024 9:43 AM EDT Pulse 61 11/17/2024 9:43 AM EDT Temperature 36.9 C (98.4 F) 11/17/2024 9:43 AM EDT Respiratory Rate 20 11/17/2024 9:43 AM EDT Oxygen Saturation 99% 11/17/2024 9:43 AM EDT Inhaled Oxygen Concentration - - Weight 67.6 kg (149 lb) 11/17/2024 9:43 AM EDT Height 160 cm (5' 3 ) 11/17/2024 9:43 AM EDT Body Mass Index 26.39 11/17/2024 9:43 AM EDT documented in this encounter Functional Status * Over the past 2 weeks, how often have you been bothered by any of the following problems? Question Answer Date of Assessment Author Patient Health Questionnaire-2 Score 0 05/2024 10:08 AM EDT Brittani Marcum MA * Little interest or pleasure in doing things Answer Date of Assessment Author Not at all 11/17/2024 10:08 AM EDT Mj Marcum MA * Feeling down, depressed, or hopeless Answer Date of Assessment Author Not at all 11/17/2024 10:08 AM EDT Mj Marcum MA * Trouble falling or staying asleep, or sleeping too much Answer Date of Assessment Author Not at all 11/17/2024 10:08 AM Mj Talamantes MA * Feeling tired or having little energy Answer Date of Assessment Author Not at all 11/17/2024 10:08 AM Mj Talamantes MA * Poor appetite or overeating Answer Date of Assessment Author Not at all 11/17/2024 10:08 AM EDMj Chacon MA * Feeling bad about yourself - or that you are a failure or have let yourself or your family down Answer Date of Assessment Author Not at all 11/17/2024 10:08 AM Mj Talamantes MA * Trouble concentrating on things, such as reading the newspaper or watching television Answer Date of Assessment Author Not at all 11/17/2024 10:08 AM Mj Talamantes MA * Moving or speaking so slowly that other people could have noticed? Or the opposite - being so fidgety or restless that you have been moving around a lot more than usual. Answer Date of Assessment Author Not at all 11/17/2024 10:08 AM Mj Talamantes MA * Thoughts that you would be better off or hurting yourself in some way Answer Date of Assessment Author Not at all 11/17/2024 10:08 AM Mj Talamantes MA * Patient Health Questionnaire-9 Score Answer Date of Assessment Author 0 11/17/2024 10:08 AM Mj Talamantes MA documented as of this encounter Miscellaneous Notes * Assessment & Plan Note - Cornelia Cabrera MD - 11/17/2024 6:16 AM EDTAssociated Problem(s): Vitamin D deficiency - continue vitamin D supplementation - encourage to increase dietary vitamin D intake documented in this encounter Plan of Treatment Scheduled Orders Name Type Priority Associated Diagnoses Orde r Schedule CBC auto differential Lab Routine Weight loss Expected: 11/17/2024 (Approximate), Expires: 11/17/2025 Vitamin D, 25-Hydroxy, Total, Immunoassay Lab Routine Vitamin D deficiency Expected: 11/17/2024 (Approximate), Expires: 11/17/2025 Hemoglobin A1c Lab Routine Family history of diabetes mellitus Expected: 11/17/2024 (Approximate), Expires: 11/17/2025 TSH with Reflex to Free T4 Lab Routine Weight loss Expected: 11/17/2024 (Approximate), Expires: 11/17/2025 Chlamydia/N. Gonorrhoeae, PCR, Urine Lab Routine Routine screening for STI (sexually transmitted infection) Ordered: 11/17/2024 Hepatitis B surface antigen, EIA Lab Routine Routine screening for STI (sexually transmitted infection) Expected: 11/17/2024 (Approximate), Expires: 11/17/2025 Hepatitis C Antibody with Reflex to HCV, RNA, Quantitative, Real-Time PCR Lab Routine Routine screening for STI (sexually transmitted infection) Expected: 11/17/2024 (Approximate), Expires: 11/17/2025 HIV-1/2 Antigen and Antibodies, Fourth Generation, with Reflexes Lab Routine Routine screening for STI (sexually transmitted infection) Expected: 11/17/2024 (Approximate), Expires: 11/17/2025 Syphilis Screen Lab Routine Routine screening for STI (sexually transmitted infection) Expected: 11/17/2024 (Approximate), Expires: 11/17/2025 Ferritin Lab Routine Anemia, unspecified type Expected: 11/17/2024 (Approximate), Expires: 11/17/2025 Iron And Total Iron Binding Capacity Lab Routine Anemia, unspecified type Expected: 11/17/2024, Expires: 11/17/2025 Reticulocyte Count Lab Routine Anemia, unspecified type Expected: 11/17/2024, Expires: 11/17/2025 Vitamin B12 (Cobalamin) and Folate Panel, Serum Lab Routine Anemia, unspecified type Expected: 11/17/2024 (Approximate), Expires: 11/17/2025 documented as of this encounter Visit Diagnoses Diagnosis Routine general medical examination at a health care facility- Primary Vitamin D deficiency Family history of diabetes mellitus Weight loss Loss of weight Screening for diabetes mellitus Routine screening for STI (sexually transmitted infection) Screening examination for venereal disease Anemia, unspecified type documented in this encounter Additional Health Concerns Assessment Noted Time PHQ-9 Depression Total Score: 0 11/18/19 25 10:08 AM EDT documented as of this encounter Care Teams Ready Mix Truck Driver Relationship Specialty Start Date End Date Cornelia Cabrera MD [address] [place] [address] PCP - General Family Medicine 11/01/21 documented as of this encounter
[2024-11-17 11:18] LABS: MANUAL DIFF FLAG NO
--- OUTSIDE RECORDS SUMMARY | 2024-11-17 11:37 | XMS_ITS | Encounter Summary ---
Author Organization [employer] Address [address] [place] [address] 7t [place] [address] Care Team Providers Care Serologist Name Role Phone Cornelia Cabrera MD Primary Care Provider [phone] Encounter Details Date Type Department Care Team ([facility] st Contact Info) Description 10/30/2022 Orders Only [facility] MEDICINE [address] [place], [place] [phone] Cornelia Cabrera MD [address] [place] [address] Anemia, unspecified type (Primary Dx) Social History [...] as of this encounter Plan of Treatment Scheduled Orders [...] documented as of this encounter Care Teams Serologist Relationship Specialty Start Date End Date Cornelia Cabrera MD [address] [place] [address] PCP - General Family Medicine 11/01/21 documented as of this encounter
--- OUTSIDE RECORDS SUMMARY | 2024-11-17 11:37 | XMS_ITS | Encounter Summary ---
Author Organization [employer] Address 75 [facility] 7t [place] [address] Care Team Providers Care Sterile Preparation Technician Name Role Phone Cornelia Cabrera MD Primary Care Provider [phone] Encounter Details Date Type Department Care Team ([facility] st Contact Info) Description 07/15/2023 Orders Only [facility] MEDICINE 230 [place], [place] [phone] China Oswald DO [address] [place], [place] [phone] Social History Tobacco Use Types Packs/Day Years [...] as of this encounter Plan of Treatment Not on file documented as of this encounter Visit Diagnoses Not on filedocumented in this encounter Additional Health Concerns Assessment Noted Time PHQ-9 Depression Total Score: 0 10/30/19 10:55 AM EDT documented as of this encounter Care Teams Sterile Preparation Technician Relationship Specialty Start Date End Date Cornelia Cabrera MD [address] [place] [address] PCP - General Family Medicine 11/01/21 documented as of this encounter
--- OUTSIDE RECORDS SUMMARY | 2024-11-17 11:37 | XMS_ITS | Encounter Summary ---
Author Organization [employer] Address 75 [facility] 7t [place] [address] Care Team Providers Care [address] Light Servicer Helper Name Role Phone Cornelia Cabrera MD Primary Care Provider [phone] Encounter Details Date Type Department Care Team ([facility] st Contact Info) Description 11/25/2023 Orders Only [facility] MEDICINE [address] [place], [place] [phone] Cornelia Cabrera MD [address] [place], [place] [phone] Social History Tobacco Use Types Packs/Day Years [...] documented as of this encounter Care Teams Street Light Servicer Helper Relationship Specialty Start Date End Date Cornelia Cabrera MD [address] [place] [address] PCP - General Family Medicine 11/01/21 documented as of this encounter
--- OUTSIDE RECORDS SUMMARY | 2024-11-17 11:37 | XMS_ITS | Encounter Summary ---
Author Organization [employer] Address 75 [facility] 7t [place] [address] Care Team Providers Care Coach Name Role Phone Cornelia Cabrera MD Primary Care Provider [phone] Encounter Details Date Type Department Care Team [...] on filedocumented in this encounter Care Teams Coach Relationship Specialty Start Date End Date Cornelia Cabrera MD [address] [place] [address] PCP - General Family Medicine 11/01/21 documented as of this encounter
--- OUTSIDE RECORDS SUMMARY | 2024-11-17 11:37 | XMS_ITS | Encounter Summary ---
Author Organization [employer] Address [address] [place] [address] 7t [place] [address] Care Team Providers Care Ticketing Clerk Name Role Phone Cornelia Cabrera MD Primary Care Provider [phone] Reason for Visit * Reason Comments Med Refill Encounter Details Date Type Department Care Team (Late st Contact Info) Description 03/19/2022 Refill [facility] [address] [place], [place] [phone] Cornelia Cabrera MD [address] [place], [place] [phone] Seborrheic dermatitis Social History Tobacco Use Types [...] dermatitis documented in this encounter Care Teams Ticketing Clerk Relationship Specialty Start Date End Date Cornelia Cabrera MD [address] [place], [place] [phone] PCP - General Family Medicine 11/01/21 documented as of this encounter
--- OUTSIDE RECORDS SUMMARY | 2024-11-17 11:37 | XMS_ITS | Encounter Summary ---
Author Organization [employer] Address 75 [facility] 7t [place] [address] Care Team Providers Care Spanner Operator Name Role Phone Cornelia Cabrera MD Primary Care Provider [phone] Encounter Details Date Type Department Care Team (Latest Contact Info) Description 08/24/2018 Abstract [facility] CONVERSIONS Dental, Provider, DDS Social History [...] on filedocumented in this encounter Care Teams Spanner Operator Relationship Specialty Start Date End Date Cornelia Cabrera MD [address] [place] [address] PCP - General Family Medicine 11/01/21 documented as of this encounter
--- OUTSIDE RECORDS SUMMARY | 2024-11-17 11:37 | XMS_ITS | Encounter Summary ---
Author Organization [employer] Address [address] [place] [address] 7 [place] [address] Care Team Providers Care Concrete Engineer Name Role Phone Cornelia Cabrera MD Primary Care Provider [phone] Reason for Visit * Reason Onset Date Comments CHART PREP 11/16/2024 Encounter Details Date Type Department Care Team ([facility] st Contact Info) Description 11/16/2024 Telephone [facility] [address] [place], [place] [phone] Cornelia Cabrera MD [address] [place], [place] [phone] CHART PREP Social History Tobacco Use Types Packs/Day Years [...] AM EDT documented as of this encounter Miscellaneous Notes * Telephone Encounter - Triny Lind MA - 11/16/2024 12:14 PM EDT Chart Prep Labs: not applicable Images: not applicable Referrals: not applicable Vaccines due: Covid, Flu, and HPV Screenings: mammogram and LMP Overdue care gaps: PHQ-9 and Oral health screening documented in this encounter Plan of Treatment Not on file documented as of this encounter Visit Diagnoses Not on filedocumented in this encounter Additional Health Concerns Assessment Noted Time PHQ-9 Depression Total Score: 0 11/04/19 24 1:44 PM EDT documented as of this encounter Care Teams Concrete Engineer Relationship Specialty Start Date End Date Cornelia Cabrera MD [address] [place] [address] PCP - General Family Medicine 11/01/21 documented as of this encounter
--- OUTSIDE RECORDS SUMMARY | 2024-11-17 11:37 | XMS_ITS | Encounter Summary ---
Author Organization [employer] Address 75 [facility] 7t [place] [address] Care Team Providers Care Turret Lathe Machinist Name Role Phone Cornelia Cabrera MD Primary Care Provider [phone] Encounter Details Date Type Department Care Team (Latest Contact Info) Description 06/19/2020 Abstract [facility] CONVERSIONS Dental, Provider, DDS Social History [...] on filedocumented in this encounter Care Teams Turret Lathe Machinist Relationship Specialty Start Date End Date Cornelia Cabrera MD [address] [place] [address] PCP - General Family Medicine 11/01/21 documented as of this encounter
--- OUTSIDE RECORDS SUMMARY | 2024-11-17 11:37 | XMS_ITS | Encounter Summary ---
Author Organization [employer] Address 75 [facility] 7t [place] [address] Care Team Providers Care Certified Professional Controller Name Role Phone Cornelia Cabrera MD Primary Care Provider [phone] Encounter Details Date Type Department Care Team (Latest Contact Info) Description 11/17/2024 Travel Social History Tobacco Use Types Packs/Day Years [...] AM EDT documented as of this encounter Functional Status * Over the past 2 weeks, how often have you been bothered by any of the following problems? Question Answer Date of Assessment Author Patient Health Questionnaire-2 Score 0 05/2024 10:08 AM Brittani Talamantes MA * Little interest or pleasure in doing things Answer Date of Assessment Author Not at all 11/17/2024 10:08 AM Mj Talamantes MA * Feeling down, depressed, or hopeless Answer Date of Assessment Author Not at all 11/17/2024 10:08 AM Mj Talamantes MA * Trouble falling or staying asleep, [...] 10:08 AM Mj Talamantes MA * Feeling bad about yourself - [...] 10:08 AM EDT Mj Marcum MA * Patient Health Questionnaire-9 Score Answer Date of Assessment Author 0 11/17/2024 10:08 AM EDT Mj Marcum MA documented as of this encounter Plan of Treatment Not on file documented as of this encounter Visit Diagnoses Not on filedocumented in this encounter Additional Health Concerns Assessment Noted Time PHQ-9 Depression Total Score: 0 11/18/19 10:08 AM EDT documented as of this encounter Care Teams Certified Professional Controller Relationship Specialty Start Date End Date Cornelia Cabrera MD [address] [place] [address] PCP - General Family Medicine 11/01/21 documented as of this encounter
--- OUTSIDE RECORDS SUMMARY | 2024-11-17 11:37 | XMS_ITS | Encounter Summary ---
Author Organization [employer] Address 75 [facility] 7t [place] [address] Care Team Providers Care Visual Arts Teacher Name Role Phone Cornelia Cabrera MD Primary Care Provider [phone] Encounter Details Date Type Department Care Team ([facility] st Contact Info) Description 11/07/2023 Orders Only [facility] MEDICINE 230 [place], [place] [phone] Cornelia Cabrera MD 230 [place], [place] [phone] Helicobacter pylori gastritis (Primary Dx) Social History [...] documented as of this encounter Care Teams Visual Arts Teacher Relationship Specialty Start Date End Date Cornelia Cabrera MD [address] [place] [address] PCP - General Family Medicine 11/01/21 documented as of this encounter
--- OUTSIDE RECORDS SUMMARY | 2024-11-17 11:37 | XMS_ITS | Clinical Summary ---
Author Organization [employer] Address [address] [place] [address] 7t [place] [address] Care Team Providers Care Child Development Director Name Role Phone Cornelia Cabrera MD Primary Care Provider [phone] Allergies No known active allergies Medications clobetasol (Temovate) 0.05 % gelIndications:A lopecia areata Apply on alopecia lesions twice daily 30 g 1 12/21/19 23 Active Fluocinolone Acetonide Scalp ([place]-Smoothe/F S Scalp) 0.01 % oilIndications:S eborrheic dermatitis [...] months Family history of diabetes mellitus 11/07/2023 Abnormal uterine bleeding (AUB) 07/11/2023 Assessment & [...] scheduled -check basic labs -consider eval with [facility] if no improvement -advised contact [facility] if sx change or worsen Alopecia [...] Vitamin D deficiency 11/08/2022 Assessment & Plan (11/17/2024 6:16 AM EDT): - continue vitamin D supplementation - encourage to increase dietary vitamin D intake Assessment & Plan (11/07/2023 5:40 AM EDT): [...] Problem Noted Date Diagnosed Date Resolved Date Epigastric abdominal pain 11/04/2023 Assessment & Plan (11/04/2023 2:21 PM EDT): - s/p cholecystectomy in October 2022 - scheduled for EGD evaluation in December 2023 - patient was prescribed omeprazole but has not taken yet, recommended to try - will check H.pylori Calculus of gallbladder with chronic cholecystitis without obstruction 11/08/20222023 Assessment & Plan (11/08/2022 1:52 PM EDT): - scheduled for cholecystectomy on 11/12/22. - pt has functional level > 4 METs. Pt is low-risk for developing significant cardiopulmonary complications. Encounters Date Type Department Care Team Description 11/17/2024 9:45 AM EDT Office Visit [address] [address] Cornelia Cabrera MD Routine general medical examination at a health care facility (Primary Dx); Vitamin D deficiency; Family history of diabetes mellitus; Weight loss; Screening for diabetes mellitus; Routine screening for STI (sexually transmitted infection); Anemia, unspecified type 11/17/2024 Travel 11/16/[address] [address] Cornelia Cabrera MD CHART PREP 11/10/2024 Patient Outreach [address] [address] Cornelia Cabrera MD Pre-visit Planning (SDOH screening completed on 10/25/2024) 10/25/2024 9:15 AM EDT Office Visit [address] [address] Fauzia Patino CNM Surveillance of previously prescribed contraceptive pill (Primary Dx); Breast cancer screening by mammogram 10/25/[address] [address] Cornelia Cabrera MD insurance 10/25/2024 Travel 10/22/[address] [address] Cornelia Cabrera MD Insurance 10/22/[address] [address] Cornelia Cabrera MD chartprep from Last 3 [...] Mass Index 26.39 11/17/2024 9:43 AM EDT Plan of Treatment Health Maintenance Due Date Last Done Comments HPV Vaccines (1 - 3-dose series) 12/27/1998 COVID-19 Vaccine ( season) 2024 03/30/2021, 07/05/2020, 06/12/2020 Influenza Vaccine (#1) 2024 , 05/27/2018, 01/13/2017, Additional history exists DTaP/Tdap/Td Vaccines (2 - Td or Tdap) 09/04/2025 09/05/2015 Alcohol/Substance Use Screening 10/25/2025 10/25/2024 Disability Screening 10/25/2025 10/25/2024 Family Planning (PISQ) 10/25/2025 10/25/2024 SDOH Screening 10/25/2025 10/25/2024 Depression Screening 11/17/2025 11/17/2024, 11/18/19 Tobacco Screening 11/17/2025 11/17/2024 Cervical Cancer Screening 10/28/2026 HPV/Cotest 10/28/2026 10/29/2023, 05/15, 01/13/2017 Pap Smear 10/28/2026 10/29/2023, 05/30/2020 Mammogram 11/11/2026 11/11/2024 Zoster Vaccines (1 of 2) 12/27/2033 RSV [...] Procedure Name Priority Date/Time Associated Diagnosis Comments BI MAMMOGRAM SCREENING TOMOSYNTHESIS BILATERAL Routine 11/11/2024 7:35 AM EDT Breast cancer screening by mammogram HEPATITIS C AB W/REFL TO HCV RNA, [...] Recently Relevant to Health Maintenance Results * BI Mammogram Screening Tomosynthesis Bilateral (11/11/2024 7:35 AM EDT) Anatomical Region Laterality Modality Breast Bilateral Mammography 11/11/2024 7:35 AM EDT Narrative 11/13/2024 3:58 PM EDT [facility] [address] [place] [address] Mammography Report Signed Patient: Breanna Eldridge MR#: [id number] : 1985 Acct:[id number] Age/Sex: 38 / F ADM Date: 11/11/24 Loc: [facility] Attending Dr: Fauzia Patino CNM Ordering Physician: FAUZIA PATINO CNM Results: 1 Negative Date of Service: 11/11/24 Follow Up: 1 Year From Orig inal Mammogram Procedure(s): MM tomosynthesis screening BI Accession Number(s): [id number] cc: FAUZIA PATINO CNM; Cornelia Cabrera MD EXAMINATION: MM SCREENING DIGITAL BREAST TOMOSYNTHESIS, BILATERAL CLINICAL INFORMATION: Screening. Asymptomatic. COMPARISON: None. This is a baseline study. TECHNIQUE: Digital breast tomosynthesis is performed in mediolateral oblique and craniocaudal views along with computer-aided detection (CAD). FINDINGS: BREAST COMPOSITION: The breasts are heterogeneously dense, which may obscure small masses (ACR BI-RADS breast composition Category c). BILATERAL BREASTS: No significant masses, suspicious calcifications or other abnormalities are seen in either breast. MM/MM tomosynthesis screening BI IMPRESSION: BILATERAL BREASTS: Negative, no mammographic evidence of malignancy. Normal interval follow-up is recommended in 12 months. ASSESSMENT: BI-RADS 1 - Negative RECOMMENDATION: Routine annual mammography screening. FOLLOW-UP: 1 year F/U This examination should not preclude the clinical evaluation of a suspicious palpable abnormality. This patient's information was entered into a reminder system with a target due date for their next mammogram. Electronically signed by: Iglesia Jones MD 11/13/2024 03:56 PM EDT Dictated By: Iglesia Jones MD Signed By: <Electronically signed by Iglesia Jones MD in OV> 11/13/24 1556 DD/ 0735 TD/TT: 11/11/24 0750 Home Care Liaison: Procedure Note Donotuseinterpreter, Image - 11/13/2024 [facility] [address] [place], [place] [address] Mammography Report Signed Patient: Breanna Eldridge#: M [id number] : 1985Acct:[id number] Age/Sex: 38 / FADM Date: 11/11/24 Loc: [facility] Attending Dr: Fauzia Patino CNM Ordering Physician: FAUZIA PATINOesults: 1 Negative Date of Service: 11/11/24Follow Up: 1 Year From Orig inal Mammogram Procedure(s): MM tomosynthesis screening BI Accession Number(s): [id number] cc: FAUZIA PATINO CNM; Cornelia Cabrera MD EXAMINATION: MM SCREENING DIGITAL BREAST TOMOSYNTHESIS, BILATERAL CLINICAL INFORMATION: Screening. Asymptomatic. COMPARISON: None. This is a baseline study. TECHNIQUE: Digital breast tomosynthesis is performed in mediolateral oblique and craniocaudal views along with computer-aided detection (CAD). FINDINGS: BREAST COMPOSITION: The breasts are heterogeneously dense, which may obscure small masses (ACR BI-RADS breast composition Category c). BILATERAL BREASTS: No significant masses, suspicious calcifications or other abnormalities are seen in either breast. MM/MM tomosynthesis screening BI IMPRESSION: BILATERAL BREASTS: Negative, no mammographic evidence of malignancy. Normal interval follow-up is recommended in 12 months. ASSESSMENT: BI-RADS 1 - Negative RECOMMENDATION: Routine annual mammography screening. FOLLOW-UP: 1 year F/U This examination should not preclude the clinical evaluation of a suspicious palpable abnormality. This patient's information was entered into a reminder system with a target due date for their next mammogram. Electronically signed by: Iglesia Jones MD 11/13/2024 03:56 PM EDT Dictated By: Iglesia Jones MD Signed By: <Electronically signed by Iglesia Jones MD in OV> 11/13/24 1556 DD/ 0735 TD/TT: 11/11/24 0750 Home Care Liaison: Fauzia Patino CNM IMG BI PROCEDURES Final R esult * Hepatitis C Antibody with Reflex to HCV, RNA, Quantitative, Real-Time PCR (11/04/2023 2:42 PM EDT) Hepatitis C Antibody Nonreactive Nonreactive [facility] Comment:Antibodies to HCV no t detected; does not exclude early acuteHCV infection. Blood Venous blood specimen / Unknown 11/04/2023 2:42 PM EDT 11/04/2023 4:03 PM EDT Cornelia Cabrera MD LAB BLOOD ORDERABLES Final Resul t [facility] [address] [place] [address] [phone] * HIV-1/2 Antigen and Antibodies, Fourth Generation, with Reflexes (11/04/2023 2:42 PM EDT) HIV AB/AG Nonreactive Nonreactive [facility] Comment:HIV-1 p24 Ag and/or HIV-1/HIV-2 Ab not detected.A test result that is nonreactive does not exclude thepossibility of exposure to or infection with HIV-1 and/orHIV-2. Nonreactive results in this assay for individualswith prior exposure to HIV-1 and/or HIV-2 may be due toantigen and antibody levels that are below the limit ofdetection of this assay.The [employer] HIV Ag/Ab Combo assay result andsupplemental assay results should be interpreted inconjunction with the patient's clinical presentation,history and other laboratory results. If the results areinconsistent with clinical evidence, additional testing issuggested to confirm the result. Blood Venous blood specimen / Unknown 11/04/2023 2:42 PM EDT 11/04/2023 4:03 PM EDT us Cornelia Cabrera MD LAB BLOOD ORDERABLES Final Resul t [facility] [address] [place] [address] [phone] * (ABNORMAL) ThinPrep Imaging Pap and HPV mRNA E6/E7 (10/29/2023 12:00 AM EDT) HPV nRNA E6/E7 Not Detected Not Detected [facility] Comment:Methodology: Transcr iption-Mediated AmplificationThis assay detects E6/E7 viral messenger RNA (mRNA) from 14high-risk HPV types (16,18,31,33,35,39,45,51,52,56,58,59,66,68).Cervical sources are required for HPV testing.If a vaginal source from a patient who has had atotal hysterectomy with removal of cervix wassubmitted, please contact the testing laboratoryfor alternative testing options.For additional information, please refer [email or web address] Focus/faq/[email or web address](This link if provided for information/educational purposes only.)THIS TEST WAS PERFORMED AT:[facility] [facility] PATH[address] [place] [phone] BEASLEY MD SOURCE: SEE NOTE [facility] Comment:None given Report Status: [facility] Clinical Information: SEE NOTE [facility] Comment:None given LMP: SEE NOTE [facility] Comment:NONE GIVEN Prev. PAP: SEE NOTE [facility] Comment:NONE GIVEN Prev. BX: SEE NOTE [facility] Comment:NONE GIVEN Statement Of Adequacy: SEE [facility] Comment:Satisfactory for arely luation.Endocervical/transformation zone componentpresent. General Categorization: SEE NOTE(A) [facility] Comment:Cytology Results: Ep ithelial Cell Abnormality Interpretation/Resul t: SEE NOTE(A) [facility] Comment:Low Grade Squamous I ntraepithelial Lesion (LSIL) Cytology Comment SEE NOTE [facility] Comment:This Pap test has be en evaluated with computerassisted technology. Family Support Coordinator: SEE NOTE [facility] Comment:SL, CT(ASCP)CT maurisio haynes location: [place] [address] Review Family Support Coordinator: [facility] Pathologist SEE NOTE [facility] Comment:Layo Meeks M.D./M.S .,Board Certified in Anatomic Pathology andBoard Eligible Cytopathology(electronic signature)Consulting PathologistCentral Hospital Pathology[address] [place] [address] [phone] PAP Infection [facility] See Note SEE [facility] Comment:EXPLANATORY NOTE:The Pap is a screening test for cervical cancer. It isnot a diagnostic test and is subject to false negativeand false positive results. It is most reliable when asatisfactory sample, regularly obtained, is submittedwith relevant clinical findings and history, and whenthe Pap result is evaluated along with historic andcurrent clinical information. 10/29/2023 10/29/2023 Narrative [facility] - 11/04/2023 11:55 AM EDT SEE RESULTS IN EMR Fauzia Patino CNKrys LAB PATHOLOGY ORDERABLES Final Result [facility] [address] [place] [address] [phone] from Last 3 Months or Most Recently Relevant to Health Maintenance Insurance [facility] 2 Care Teams Child Development Director Relationship Specialty Start Date End Date Cornelia Cabrera MD [address] [place] [address] PCP - General Family Medicine 11/01/21
[2024-11-17 11:42] LABS: Hematocrit 35.7 % (37.0-47.0); Hemoglobin 10.6 g/dl (12.0-16.0); Imm Gran Abs Auto 0.02 X10*3/uL (0.00-0.03); Imm Gran Pct Auto 0.3 % (0.0-0.4); Lymphocytes Absolute Auto 1.9 X10*3/uL (1.2-4.9); Mean Corpuscular HGB Conc 29.7 g/dl (31.0-35.0); Mean Corpuscular Hemoglobin 21.5 pg (27.0-33.0); Mean Corpuscular Volume 72.6 fL (80.0-98.0); NRBC Abs Auto 0.000 X10*3/uL (0.0-0.012); NRBC Pct Auto 0.0 /100WBC (0.0-0.2); Platelet Count 353 X10*3/uL (160-400); Red Blood Count 4.92 X10*6/uL (4.20-5.50); Reticulocytes Absolute 0.074 X10*6/uL (0.026-0.095); White Blood Count 7.0 X10*3/uL (4.8-10.8)
[2024-11-17 11:47] LABS: Hemoglobin A1C 108.7515 umol/L; Total Hemoglobin (HGBA1C) 2764.0123 umol/L
[2024-11-17 12:15] LABS: Iron 20 mcg/dL (30-160); Percent Iron Saturation 4 % (15-50); Total Iron Binding Capacity 468 mcg/dL (228-428); Unsaturated Iron Binding 448 ug/dL
[2024-11-17 12:24] LABS: Ferritin < 2 ng/mL (10-250)
[2024-11-17 12:48] LABS: HBsAGNum1 0.43 S/CO (0.00-0.99); HIV Num 1 0.07 S/CO (0.00-0.99); Hepatitis B Surface Antigen Negative (Negative); ~HepC Num1 0.39 S/CO (0.00-0.79); ~Hepatitis C Antibody Nonreactive (Nonreactive)
[2024-11-17 12:52] LABS: Syphilis Screen Nonreactive (Nonreactive)
[2024-11-17 13:04] LABS: Folate 12.7 ng/mL (> or = 4.0); Vitamin B12 290 pg/mL (200-900)
[2024-11-17 13:37] LABS: CT PCR Urine NOT DETECTED (Not Detect.); NG PCR Urine NOT DETECTED (Not Detect.)
== END 2024-11-17 10:09 | disposition home or self-care (01) ==
LOC: HO.HHCL 10:08
PROVIDERS: PCP Family Medicine; Visit Provider Family Medicine
DX: Z11.3 Encounter for screening for infections with a predominantly sexual mode of transmission (principal); Z11.59 Encounter for screening for other viral diseases; Z11.4 Encounter for screening for human immunodeficiency virus [HIV]; R63.4 Abnormal weight loss; D64.9 Anemia, unspecified; E55.9 Vitamin D deficiency, unspecified; Z83.3 Family history of diabetes mellitus; Z11.8 Encounter for screening for other infectious and parasitic diseases
CPT/HCPCS: 82306; 82607; 82728; 82746; 83036; 83540; 84443; 85025; 85045; 86780; 86803; 87340; 87389; 87491; 87591

== ENCOUNTER 2024-12-06 11:01 | Outpatient (AMB) | payer OTHER, SELFPAY ==
--- NOTE | 2024-12-06 11:06 | A.OFFVIS_ITS ---
Vital Signs 12/06/24 11:15 Height 5 ft 3 in Weight 150 lb BMI 26.6 BP 108/59 L Blood Pressure Location Lt brachial Position Sitting Pulse 72 Intake Visit Reasons: f/u double results Intake Note: Patient follow up for EGD/Colonoscopy results. Patient cc: abdominal pain on the middle of abdomen with burning sensation and taking her air/oxygen out, denies any other GI issues. Tax Credit Leasing Consultant Required: Yes Tax Credit Leasing Consultant Name: [employer] Accompanied by: Self / Same As Patient Allergies No Known Allergies Allergy (Verified 03/31/24 13:15) HPI HPI f/u double results: Details: 38 yr old f here for f/u recap: she has had epigastric pain, 3-4 years no relieving or exacerbating factors, she has occ nausea she takes prilosec prn -helps a little took one month ago pcp checked h pylori and was pos, pain seemed to go away up till 3-4 weeks ago--follow up h pylori was neg she has both constipation, and diarrhea she denies melena, rectal bleeding labs with anemia, has had spotting -vaginally after stopping OCP egd/colo 03/09 Endoscopy Findings: mild gastritis Colonoscopy Findings: internal hemorrhoids INTERIM: she still has bloating, can have cramps with this she is not having epigastric pain, occ at night she has nausea with pain otherwise not ferritin < 2 EXAM: GENERAL: The patient is well developed and nontoxic. VITAL SIGNS:see workflow HEENT: Nonicteric sclerae, PERRLA, EOMI. Oropharynx clear. Moist mucous membranes. Conjunctivae appear well perfused. No thyroid mass. CHEST: Chest wall is nontender. HEART: Regular rate and rhythm without murmurs. LUNGS: Clear to auscultation bilaterally. ABDOMEN: Soft, positive bowel sounds, nontender, no organomegaly.no flank tenderness SKIN: No rash, no excessive bruising, petechiae, or purpura. NEUROLOGIC: Cranial nerves II-XII intact without motor/sensory deficit. Psych: normal affect A/P: 1/ Anemia and epigastric pain, hx of h pylori, no overt Gi bleeding--colo with poor prep, EGD with IEL in duodenum, but celiac serologies negative --taking iron tabs PLAN: 1/ repeat colo 2/ celiac serology neg and h pylori neg, consider checking HLA DR genes 3/ will also give rifaximin in case due to bacterial overgrowth, might have to check for anti enterocyte antibody and bx/tests for tropical sprue PFSH Medical History (Updated 04/01/24 @ 00:01 by Leoncio Cook) Anemia Chronic epigastric pain Gallstones Surgical History History of laparoscopic cholecystectomy (~11/12/22) Surgical history unknown Social History Alcohol intake: current Alcohol intake frequency: a few times a month Patient Tobacco Use Status: Never used Tobacco Physical Exam Vital Signs: Last Vital Signs Pulse 72 12/06/24 11:15 BP 108/59 L 12/06/24 11:15 BMI result Body Mass Index 26.6 Assessment & Plan Assessment & Plan (1) Anemia: Code(s): D64.9 - Anemia, unspecified Category: Medical Plan: as above Medications: New rifaximin 550 mg PO TID 42 tabs 0RF 2 weeks peg-electrolyte soln 420 gram until fecal effluent is clear; 240 mL PO Q10M 4,000 mL 0RF Patient Instructions: as above Coding Level of Care Code Est Pt Level 4 (36508) Diagnoses Anemia D64.9
[2024-12-06 11:15] VITALS: BP 108/59; PULSE 72; BMI 26.6
--- OUTSIDE RECORDS SUMMARY | 2024-12-06 13:41 | XMS_ITS | Encounter Summary ---
Author Organization [employer] Address [address] [place] [address] [address] [place] [address] Care Team Providers Care Diagnostic Imaging Manager Name Role Phone Cornelia Cabrera MD Primary Care Provider [phone] Reason for Visit * Reason Comments Med Refill Encounter Details Date Type Department Care Team (Late st Contact Info) Description 03/19/2022 Refill [facility] [address] [place], [place] [phone] Cornelia Cabrera MD [address] [place], [place] [phone] Seborrheic dermatitis Social History Tobacco Use Types [...] dermatitis documented in this encounter Care Teams Diagnostic Imaging Manager Relationship Specialty Start Date End Date Cornelia Cabrera MD [address] [place], [place] [phone] PCP - General Family Medicine 11/01/21 documented as of this encounter
--- OUTSIDE RECORDS SUMMARY | 2024-12-06 13:41 | XMS_ITS | Encounter Summary ---
Author Organization [employer] Address [address] [facility] 7t [place] [address] Care Team Providers Care Pack Puller Name Role Phone Cornelia Cabrera MD Primary Care Provider Encounter Details Date Type Department Care Team (Latest Contact Info) Description 08/24/2018 Abstract [facility] CONVERSIONS Dental, Provider, DDS Social History Tobacco [...] on filedocumented in this encounter Care Teams Pack Puller Relationship Specialty Start Date End Date Cornelia Cabrera MD [address] [place] [phone] PCP - General Family Medicine 11/01/21 documented as of this encounter
--- OUTSIDE RECORDS SUMMARY | 2024-12-06 13:41 | XMS_ITS | Encounter Summary ---
Author Organization [employer] Address [address] [facility] [address]t [place] [address] Care Team Providers Care Cuff Stitcher Name Role Phone Cornelia Cabrera MD Primary Care Provider Encounter Details Date Type Department Care Team ([facility] st Contact Info) Description 11/07/2023 Orders Only [facility] [address] [place], [place] [phone] Cornelia Cabrera MD [address] [place], [place] [phone] Helicobacter pylori gastritis (Primary Dx) Social History [...] documented as of this encounter Care Teams Cuff Stitcher Relationship Specialty Start Date End Date Cornelia Cabrera MD [address] [place] [phone] PCP - General Family Medicine 11/01/21 documented as of this encounter
--- OUTSIDE RECORDS SUMMARY | 2024-12-06 13:41 | XMS_ITS | Encounter Summary ---
Author Organization [employer] Address [address] [place] [address] [address] [place] [address] Care Team Providers Care Buttonholer Name Role Phone Cornelia Cabrera MD Primary Care Provider [phone] Encounter Details Date Type Department Care Team ([facility] st Contact Info) Description 10/30/2022 Orders Only [facility] [address] [place], [place] [phone] Cornelia Cabrera MD [address] [place] [address] Anemia, unspecified type (Primary Dx) Social History [...] documented as of this encounter Care Teams Buttonholer Relationship Specialty Start Date End Date Cornelia Cabrera MD [address] [place] [address] PCP - General Family Medicine 11/01/21 documented as of this encounter
--- OUTSIDE RECORDS SUMMARY | 2024-12-06 13:41 | XMS_ITS | Encounter Summary ---
Author Organization [employer] Address [address] [facility] [address]t [place] [address] Care Team Providers Care Nitroglycerin Nitrator Operator Batch Name Role Phone Cornelia Cabrera MD Primary Care Provider [phone] Encounter Details Date Type Department Care Team ([facility] st Contact Info) Description 07/15/2023 Orders Only [facility] MEDICINE [address] [place], [place] [phone] China Oswald DO [address] [place], [place] [phone] Social History Tobacco Use Types Packs/Day Years [...] documented as of this encounter Care Teams Nitroglycerin Nitrator Operator Batch Relationship Specialty Start Date End Date Cornelia Cabrera MD [address] [place] [phone] PCP - General Family Medicine 11/01/21 documented as of this encounter
--- OUTSIDE RECORDS SUMMARY | 2024-12-06 13:41 | XMS_ITS | Clinical Summary ---
Author Organization [employer] Address [address] [place] [address] 7[address] [place] [address] Care Team Providers Care Specialty Cook Name Role Phone Cornelia Cabrera MD Primary Care Provider [phone] Allergies No known active allergies Medications clobetasol (Temovate) 0.05 % gelIndications:A lopecia areata Apply on alopecia lesions twice daily 30 g 1 12/21/19 23 Active Fluocinolone Acetonide Scalp ([place]-Smoothe/F S Scalp) 0.01 % oilIndications:S eborrheic dermatitis [...] mouth 2 times daily. 09/25/19 24 Active Tri-Linyah 0.18/0.215/0.25 MG-35 MCG tablet Take 1 tablet by mouth in the morning. 84 tablet 3 10/26/19 25 Active ferrous sulfate (Fe Tabs) 325 (65 Fe) MG EC tablet Take 1 tablet (325 mg) by mouth every other day. Do not crush, chew, or split. 45 tablet 1 11/18/19 25 026 Active ferrous sulfate (Fe Tabs) 325 (65 Fe) MG EC tablet Take 1 tablet (325 mg) by mouth with breakfast and with evening meal. Do not crush, chew, or split. 60 tablet 5 11/25/19 24 025 Discontinued(R eorder (will not trigger notification to Pharmacy)) Active Problems Problem Noted Date Diagnosed Date Anemia 11/07/2023 Assessment & Plan (11/18/2024 10:19 PM EDT): - mild, in a setting of AUB and epigastric pain - continue iron supplementation - upcoming appointment with GI for EGD evaluation - recheck lab in 1-2 months Assessment & Plan (11/07/2023 5:37 AM EDT): - mild, in a setting of AUB and epigastric pain - continue iron supplementation - upcoming appointment with GI for EGD evaluation - recheck lab in 1-2 months Family history of diabetes mellitus 11/07/2023 Abnormal uterine bleeding (AUB) 07/11/2023 Assessment & Plan (11/07/2023 5:40 AM EDT): - US in July 2023 was benign - Seen by Malka anderson on 10/29/23 LSIL with negative high-risk HPV - continue OCP Assessment & Plan (07/11/2023 2:00 PM EDT): With persistent spotting, HCG negative -referred for pelvic US -check BV panel -will have pap appt scheduled -check basic labs -consider eval with SALES CONTRACTOR if no improvement -advised contact [facility] if sx change or worsen Alopecia areata [...] care products Overweight 11/08/2022 Assessment & Plan (11/24/2024 4:30 PM EDT): - continue working on lifestyle modifications Assessment & Plan (11/07/2023 5:40 AM EDT): [...] Description 11/17/2024 9:45 AM EDT Office Visit [address] [address] Cornelia Cabrera MD Routine general medical examination at a health care facility (Primary Dx); Vitamin D deficiency; Family history of diabetes mellitus; Weight loss; Screening for diabetes mellitus; Routine screening for STI (sexually transmitted infection); Anemia, unspecified type; Dietary counseling; Exercise counseling; Overweight 11/17/2024 Orders Only [address] [address] Cornelia Cabrera MD Anemia, unspecified type (Primary Dx) 11/17/2024 Results Follow-Up [address] [address] Cornelia Cabrera MD Chlamydia/N. Gonorrhoeae, PCR, Urine, CBC auto differential, Vitamin D, 25-Hydroxy, Total, Immunoassay, Additional followed-up results: 10 11/17/2024 Travel 11/16/[address] [address] Cornelia Cabrera MD CHART PREP 11/10/2024 Patient Outreach [address] [address] Cornelia Cabrera MD Pre-visit Planning (SDOH screening completed on 10/25/2024) 10/25/2024 9:15 AM EDT Office Visit [address] [address] Malka Patino CNM Surveillance of previously prescribed contraceptive pill (Primary Dx); Breast cancer screening by mammogram 10/25/[address] [address] Cornelia Cabrera MD insurance 10/25/2024 Travel 10/22/2024 Telephone [facility] [address] [place] [address] Cornelia Cabrera MD Insurance 10/22/2024 Telephone [facility] [address] [place] [address] Cornelia Cabrera MD chartprep from Last 3 [...] 10/25/2025 10/25/2024 Depression Screening 11/17/2025 11/17/2024, 11/18/19 Diabetes: Hemoglobin A1C 11/17/2025 025, 07/14/2023, 10/30/2022, Additional history exists Tobacco Screening 11/17/2025 11/17/2024 Cervical Cancer Screening 10/28/2026 HPV/Cotest 10/28/2026 10/29/2023, 05/15, 01/13/2017 Pap Smear 10/28/2026 10/29/2023, 05/30/2020 Mammogram 11/11/2026 11/11/2024 Zoster Vaccines (1 of 2) 12/27/2033 RSV Patients and Patients Aged 60 years or older (1 - 1-dose 75+ series) 12/27/2058 Hepatitis B Vaccines Completed 01/13/2017, 09/19/2015, 03/24/2013 HIV Screening Completed 11/17/2024, 10/16, 10/30/2022, Additional history exists Hepatitis C Screening Completed 11/17/2024 , 11/04/2023, 10/30/2022, Additional history exists HIB Vaccines Aged Out No longer eligi [...] Procedure Name Priority Date/Time Associated Diagnosis Comments VITAMIN B12/FOLATE, SERUM PANEL Routine 11/17/2024 10:12 AM EDT Anemia, unspecified type RETICULOCYTE COUNT Routine 11/17/2024 10 :12 AM EDT Anemia, unspecified type IRON AND TOTAL IRON BINDING CAPACITY Routine 11/17/2024 10:12 AM EDT Anemia, unspecified type FERRITIN Routine 11/17/2024 10:12 AM EDT Anemia, unspecified type SYPHILIS SCREEN Routine 11/17/2024 10:12 AM EDT Routine screening for STI (sexually transmitted infection) HIV 1/2 ANTIGEN/ANTIBODY, FOURTH GENERATION W/RFL Routine 11/17/2024 10:12 AM EDT Routine screening for STI (sexually transmitted infection) HEPATITIS C AB W/REFL TO HCV RNA, QN, PCR Routine 11/17/2024 10:12 AM EDT Routine screening for STI (sexually transmitted infection) HEPATITIS B SURFACE ANTIGEN, EIA Routine 11/17/2024 10:12 AM EDT Routine screening for STI (sexually transmitted infection) TSH W/REFLEX TO FT4 Routine 11/17/2024 1 0:12 AM EDT Weight loss HEMOGLOBIN A1C Routine 11/17/2024 10:12 AM EDT Family history of diabetes mellitus VITAMIN D,25-OH,TOTAL,IA Routine 11/17/2024 10:12 AM EDT Vitamin D deficiency CBC WITH AUTO DIFFERENTIAL Routine 11/17/2024 10:12 AM EDT Weight loss CHLAMYDIA/TRICHOMONAS/ NEISSERIA GONORRHOEAE, PCR, URINE Routine 11/17/2024 10:12 AM EDT Routine screening for STI (sexually transmitted infection) BI MAMMOGRAM SCREENING TOMOSYNTHESIS BILATERAL Routine 11/11/2024 7:35 AM EDT Breast cancer screening by mammogram THINPREP IMAGING PAP AND HPV MRNA E6/E7 Routine 10/29/2023 12:00 AM EDT from Last 3 Months or Most Recently Relevant to Health Maintenance Results * Chlamydia/N. Gonorrhoeae, PCR, Urine (11/17/2024 10:12 AM EDT) CT PCR, Urine NOT DETECTED Not Detect. LABS Comment:A not detected test result does not exclude the possibilityof infection because test results can be affected byimproper specimen collection, concurrent antibiotic therapy,or the number of organisms in the specimen which may bebelow the sensitivity of the test. As with many diagnostictests, results from the Xpert CT/NG assay should beinterpreted in conjunction with other laboratory andclinical data available to the clinician.The Xpert CT/NG assay should not be used for the evaluationof suspected sexual abuse or for other medico-legalindications. Additional testing is recommended in anycircumstance when false positive or false negative resultscould lead to adverse medical, social or psychologicalconsequences. NG PCR, Urine NOT DETECTED Not Detect. LABS Comment:A not detected test result does not exclude the possibilityof infection because test results can be affected byimproper specimen collection, concurrent antibiotic therapy,or the number of organisms in the specimen which may bebelow the sensitivity of the test. As with many diagnostictests, results from the Xpert CT/NG assay should beinterpreted in conjunction with other laboratory andclinical data available to the clinician.The Xpert CT/NG assay should not be used for the evaluationof suspected sexual abuse or for other medico-legalindications. Additional testing is recommended in anycircumstance when false positive or false negative resultscould lead to adverse medical, social or psychologicalconsequences. Urine (Urine, Random) 11/17/2024 10:12 AM EDT 11/17/2024 11:16 AM EDT Cornelia Cabrera MD LAB URINE ORDERABLES Final Resul t LABS [address] [place] [phone] * Syphilis Screen (11/17/2024 10:12 AM EDT) Syphilis Screen Nonreactive Nonreactive LABS Blood Venous blood specimen / Unknown 11/17/2024 10:12 AM EDT 11/17/2024 11:12 AM EDT Cornelia Cabrera MD LAB BLOOD ORDERABLES Final Resul t Performing Organization Address [facility]/ZIP Co de Phone Number LABS [address] [place] [address] [phone] * Vitamin D, 25-Hydroxy, Total, Immunoassay (11/17/2024 10:12 AM EDT) Vitamin D 25-OH Total 41.2 >30 ng/mL LABS Comment: Health Based Reference Values*< 20 ng/mL Rlgvoicno04-68 ng/mL Insufficient> 30 ng/mL Sufficient*Lenny BAILEY. N Engl J Med. 2007;357:266-280There is no well-established upper level of normal vitamin Dlevels. Some laboratories use 50 ng/mL as an upper limit ofnormal. However, toxicity is patient-dependent and may occurat any level. Careful correlation with the patient'spresentation is necessary and, if there is concern forvitamin D toxicity, treatment should be consideredirrespective of the serum level.Care must be taken in interpreting Vitamin D results fromdifferent laboratories and methodologies. Published datademonstrated that results from patients undergoinghemodialysis may show a negative bias when tested withvarious automated 25-OH vitamin D assays when compared toLC-MS/MS.When testing samples from patients whose predominant form ofVitamin D is Vitamin D2, such as patients receiving VitaminD2 supplementation, results that are subtherapeutic shouldbe confirmed with another method such as LC-MS/MS. Blood Venous blood specimen / Unknown 11/17/2024 10:12 AM EDT 11/17/2024 11:12 AM EDT Cornelia Cabrera MD LAB BLOOD ORDERABLES Final Resul t Performing Organization Address [facility]/ZIP Co de Phone Number LABS [address] [place] [phone] * Vitamin B12 (Cobalamin) and Folate Panel, Serum (11/17/2024 10:12 AM EDT) Vitamin B12 290 200 - 900 pg/mL LABS Comment:NORMAL 200-900 PG/ML INDETERMINATE 160-199 PG/ML DEFICIENT < 160 PG/ML Folate 12.7 > or = 4.0 ng/mL LABS Comment:Reference Values:> o r = 4.0 ng/mL< 4.0 ng/mL suggests folate deficiency Methotrexate, aminopterin and folinic acid(leucovorin) are chemotherapeutic agents whose molecularstructures are similar to folate; therefore, the Architectfolate assay cannot be used for patients using these drugs. Blood 11/17/2024 10:1 2 AM EDT 11/17/2024 11:12 AM EDT us Cornelia Cabrera MD LAB BLOOD ORDERABLES Final Resul t Performing Organization Address [facility]/ZIP Co de Phone Number LABS [address] [place] [phone] * TSH with Reflex to Free T4 (11/17/2024 10:12 AM EDT) TSH reflex Free T4 0.86 0.32 - 4.0 uIU/mL LABS Blood 11/17/2024 10:1 2 AM EDT 11/17/2024 11:12 AM EDT us Cornelia Cabrera MD LAB BLOOD ORDERABLES Final Resul t Performing Organization Address [facility] Co de Phone Number LABS [address] [place] [phone] * (ABNORMAL) CBC auto differential (11/17/2024 10:12 AM EDT) White Blood Count 7.0 4.8 - 10.8 X10*3/uL LABS Red Blood Count 4.92 4.20 - 5.50 X10*6/uL LABS Hemoglobin 10.6(L) 12.0 - 16.0 g/dl LABS Hematocrit 35.7(L) 37.0 - 47.0 % LABS Mean Corpuscular Volume 72.6(L) 80.0 - 98.0 fL LABS Mean Corpuscular Hemoglobin 21.5(L) 27.0 - 33.0 pg LABS Mean Corpuscular HGB Conc 29.7(L) 31.0 - 35.0 g/dl LABS Red Cell Distribution Width 18.1(H) 11.0 - 16.0 % LABS Platelet Count 353 160 - 400 X10*3/uL LABS Mean Platelet Volume 10.6 9.4 - 12.3 fL LABS Neutrophils Percent Auto 62.4 45 - 73 % LABS Imm Gran Pct Auto 0.3 0.0 - 0.4 % LABS Lymphocytes Percent Auto 27.4 20 - 40 % LABS Monocytes Percent Auto 6.7 2 - 11 % LABS Eosinophils Percent Auto 2.3 0 - 4 % LABS Basophils Percent Auto 0.9 0 - 2 % LABS NRBC Pct Auto 0.0 0.0 - 0.2 /100WBC LABS Neutrophils Absolute Auto 4.4 2.0 - 8.3 x10*3/uL LABS Imm Gran Abs Auto 0.02 0.00 - 0.03 X10*3/uL LABS Lymphocytes Absolute Auto 1.9 1.2 - 4.9 X10*3/uL LABS Monocytes Absolute Auto 0.5 0.1 - 1.2 X10*3/uL LABS Eosinophils Absolute Auto 0.2 0.0 - 0.4 X10*3/uL LABS Basophils Absolute Auto 0.1 0.0 - 0.2 X10*3/uL LABS NRBC Abs Auto 0.000 0.0 - 0.012 X10*3/uL LABS Blood Venous blood specimen / Unknown 11/17/2024 10:12 AM EDT 11/17/2024 11:12 AM EDT us Cornelia Cabrera MD LAB BLOOD ORDERABLES Final Resul t Performing Organization Address City/[facility]/ZIP Co de Phone Number LABS [address] [place] [phone] * Hepatitis C Antibody with Reflex to HCV, RNA, Quantitative, Real-Time PCR (11/17/2024 10:12 AM EDT) Hepatitis C Antibody Nonreactive Nonreactive LABS Comment:Antibodies to HCV no t detected; does not exclude early acuteHCV infection. Blood Venous blood specimen / Unknown 11/17/2024 10:12 AM EDT 11/17/2024 11:12 AM EDT us Cornelia Cabrera MD LAB BLOOD ORDERABLES Final Resul t Performing Organization Address [facility] Co de Phone Number LABS [address] [place] [phone] * (ABNORMAL) Iron And Total Iron Binding Capacity (11/17/2024 10:12 AM EDT) Iron 20(L) 30 - 160 mcg/dL LABS Total Iron Binding Capacity 468(H) 228 - 428 mcg/dL LABS Percent Iron Saturation 4(L) 15 - 50 % LABS Unsaturated Iron Binding 448 ug/dL LABS Blood Venous blood specimen / Unknown 11/17/2024 10:12 AM EDT 11/17/2024 11:12 AM EDT us Cornelia Cabrera MD LAB BLOOD ORDERABLES Final Resul t Performing Organization Address [facility] Co de Phone Number LABS [address] [place] [phone] * Hepatitis B surface antigen, EIA (11/17/2024 10:12 AM EDT) Hepatitis B Surface Ag Negative Negative LABS Blood Venous blood specimen / Unknown 11/17/2024 10:12 AM EDT 11/17/2024 11:12 AM EDT us Cornelia Cabrera MD LAB BLOOD ORDERABLES Final Resul t Performing Organization Address [facility] Co de Phone Number LABS [address] [place] [phone] * HIV-1/2 Antigen and Antibodies, Fourth Generation, with Reflexes (11/17/2024 10:12 AM EDT) Pathologist [facility] HIV AB/AG Nonreactive Nonreactive [facility] LABS Comment:HIV-1 p24 Ag and/or HIV-1/HIV-2 Ab not detected.A test result that is nonreactive does not exclude thepossibility of exposure to or infection with HIV-1 and/orHIV-2. Nonreactive results in this assay for individualswith prior exposure to HIV-1 and/or HIV-2 may be due toantigen and antibody levels that are below the limit ofdetection of this assay.The [facility] HIV Ag/Ab Combo assay result andsupplemental assay results should be interpreted inconjunction with the patient's clinical presentation,history and other laboratory results. If the results areinconsistent with clinical evidence, additional testing issuggested to confirm the result. Blood Venous blood specimen / Unknown 11/17/2024 10:12 AM EDT 11/17/2024 11:12 AM EDT us Cornelia Cabrera MD LAB BLOOD ORDERABLES Final Resul t Performing Organization Address [facility] Co de Phone Number LABS [address] [place] [phone] * (ABNORMAL) Reticulocyte Count (11/17/2024 10:12 AM EDT) [facility] Reticulocytes Absolute 0.074 0.026 - 0.095 X10*6/uL LABS Immature Retic Fraction 22.1(H) 3.0 - 15.9 % LABS Retic HGB Equivalent 25.2(L) 30.0 - 35.0 pg LABS Reticulocyte Percent 1.5 0.5 - 1.8 % LABS Blood Venous blood specimen / Unknown 11/17/2024 10:12 AM EDT 11/17/2024 11:12 AM EDT Cornelia Cabrera MD LAB BLOOD ORDERABLES Final Resul t Performing Organization Address [facility]/ZIP Co de Phone Number LABS [address] [place] [phone] * Hemoglobin A1c (11/17/2024 10:12 AM EDT) Hemoglobin A1c 5.8 <6.0 % [facility] LABS Comment:Hemoglobin A1C Refer ence Range Adults: 4.8 - 6.0 % Non diabetic: < 6.0 % Goal: < 7.0 %Additional Action Suggested: > 8.0 %Note: Hemoglobin A1c results are invalid for patients with abnormal amounts of HbF. Blood transfusions may impact the HbA1c concentration in the patient sample. Estimated Average Glucose 120 mg/dL LABS Comment:eAG = Estimated ave rage glucose which is %A1C expressed asaverage glucose, using the formula of the U9Y-RddvhwoAzttvsy Glucose study (ADAG), Diabetes Care, Vol.31,#8,Oct. 2007 Blood Venous blood specimen / Unknown 11/17/2024 10:12 AM EDT 11/17/2024 11:12 AM EDT Cornelia Cabrera MD LAB BLOOD ORDERABLES Final Resul t Performing Organization Address [facility]/ZIP Co de Phone Number LABS [address] [place] [phone] * (ABNORMAL) Ferritin (11/17/2024 10:12 AM EDT) Ferritin <2(L) 10 - 250 ng/mL LABS Blood Venous blood specimen / Unknown 11/17/2024 10:12 AM EDT 11/17/2024 11:12 AM EDT us Cornelia Cabrera MD LAB BLOOD ORDERABLES Final Resul t LABS [address] [place] [address] [phone] * BI Mammogram Screening Tomosynthesis Bilateral (11/11/2024 7:35 AM EDT) Anatomical Region Laterality Modality Breast Bilateral Mammography 11/11/2024 7:35 AM EDT Narrative 11/13/2024 3:58 PM EDT [facility] [address] [place] [address] Mammography Report Signed Patient: Breanna Eldridge MR#: [id number] : 1985 Acct:[id number] Age/Sex: 38 / F ADM Date: 11/11/24 Loc: [facility] Attending Dr: Malka Patino CNM Ordering Physician: MALKA PATINO CNM Results: 1 Negative Date of Service: 11/11/24 Follow Up: 1 Year From [facility] Mammogram Procedure(s): MM tomosynthesis screening BI Accession Number(s): [id number] cc: MALKA PATINO CNM; Cornelia Cabrera MD EXAMINATION: MM [...] Iglesia Jones MD 11/13/2024 03:56 PM EDT RP Dictated By: Iglesia Jones MD Signed By: <Electronically signed by Iglesia Jones MD in OV> 11/13/24 1556 DD/ 0735 TD/TT: 11/11/24 0750 Equity Sales Assistant: Procedure Note Donotuseinterpreter, Image - 11/13/2024 [facility] [address] [place] [address] Mammography Report Signed Patient: Bridgette Eldridge#: M [id number] : 1985Acct:[id number] Age/Sex: 38 / FADM Date: 11/11/24 Loc: MAMMO Attending Dr: Malka Patino CNM Ordering Physician: MALKA PATINOesults: 1 Negative Date of Service: 11/11/24Follow Up: 1 Year From Orig inal Mammogram Procedure(s): MM tomosynthesis screening BI Accession Number(s): [id number] cc: MALKA PATINO CNM; Cornelia Cabrera MD EXAMINATION: MM [...] Iglesia Jones MD 11/13/2024 03:56 PM EDT RP Workstation: [employer] Dictated By: Iglesia Jones MD Signed By: <Electronically signed by Iglesia Jones MD in OV> 11/13/24 1556 DD/ 0735 TD/TT: 11/11/24 0750 Equity Sales Assistant: us Malka Patino CN IMG BI PROCEDURES Final R esult * (ABNORMAL) ThinPrep Imaging Pap and HPV mRNA E6/E7 (10/29/2023 12:00 AM EDT) HPV nRNA E6/E7 Not Detected Not Detected LABS Comment:Methodology: Transcr iption-Mediated AmplificationThis assay detects E6/E7 viral messenger RNA (mRNA) from 14high-risk HPV types (16,18,31,33,35,39,45,51,52,56,58,59,66,68).Cervical sources are required for HPV testing.If a vaginal source from a patient who has had atotal hysterectomy with removal of cervix wassubmitted, please contact the testing laboratoryfor alternative testing options.For additional information, please refer [email or web address](This link if provided for information/educational purposes only.)THIS TEST WAS PERFORMED AT:[facility]OTE[facility] ANATOMIC PATHOLOGY[address] [place] [phone] BEASLEY MD SOURCE: SEE NOTE LABS Comment:None given Report Status: TNP [facility] LABS Clinical Information: SEE NOTE LABS Comment:None given LMP: SEE NOTE LABS Comment:NONE GIVEN Prev. PAP: SEE NOTE LABS Comment:NONE GIVEN Prev. BX: SEE NOTE LABS Comment:NONE GIVEN Statement Of Adequacy: SEE NOTE LABS Comment:Satisfactory for arely ross.Endocervical/transformation zone componentpresent. General Categorization: SEE NOTE(A) LABS Comment:Cytology Results: Ep ithelial Cell Abnormality Interpretation/Resul t: SEE NOTE(A) LABS Comment:Low Grade Squamous I ntraepithelial Lesion (LSIL) Cytology Comment SEE NOTE [facility] Comment:This Pap test has be en evaluated with computerassisted technology. Client Support Professional: SEE NOTE [facility] LABS Comment:SL, CT(ASCP)CT scree ivy location: [place] [address] Review Client Support Professional: [facility] Pathologist SEE NOTE LABS Comment:Layo Meeks M.D./M.S .,Board Certified in Anatomic Pathology andBoard Eligible Cytopathology(electronic signature)Consulting [address] [phone] PAP Infection [facility] See Note SEE NOTE LABS Comment:EXPLANATORY NOTE:The Pap is a screening test for cervical cancer. It isnot a diagnostic test and is subject to false negativeand false positive results. It is most reliable when asatisfactory sample, regularly obtained, is submittedwith relevant clinical findings and history, and whenthe Pap result is evaluated along with historic andcurrent clinical information. 10/29/2023 10/29/2023 Narrative LABS - 11/04/2023 11:55 AM EDT SEE RESULTS IN EMR us Malka HERRERA LAB PATHOLOGY ORDERABLES Final Result LABS [address] [place] [phone] from Last 3 Months or Most Recently Relevant to Health Maintenance Insurance [facility] [address] [place] [address] Care Teams Specialty Cook Relationship Specialty Start Date End Date Cornelia Cabrera MD [address] [place] [address] PCP - General Family Medicine 11/01/21
--- OUTSIDE RECORDS SUMMARY | 2024-12-06 13:41 | XMS_ITS | Encounter Summary ---
Author Organization [employer] Address [address] [facility] [address] [place] [address] Care Team Providers Care Piping Drafter Name Role Phone Cornelia Cabrera MD Primary Care Provider Encounter Details Date Type Department Care Team ([facility] st Contact Info) Description 11/25/2023 Orders Only [facility] MED[facility]INE [address] [place], [place] [phone] Cornelia Cabrera MD [address] [place], [place] [phone] Social History Tobacco Use Types Packs/Day Years [...] documented as of this encounter Care Teams Piping Drafter Relationship Specialty Start Date End Date Cornelia Cabrera MD [address] [place] [phone] PCP - General Family Medicine 11/01/21 documented as of this encounter
--- OUTSIDE RECORDS SUMMARY | 2024-12-06 13:41 | XMS_ITS | Encounter Summary ---
Author Organization [employer] Address [address] [facility] [address] [place] [address] Care Team Providers Care Heavy Equipment Plumbing Supervisor Name Role Phone Cornelia Cabrera MD Primary Care Provider [phone] Encounter Details Date Type Department Care Team (Latest Contact Info) Description 11/12/2021 Abstract [facility] CONVERSIONS Dental, Provider, DDS Social History [...] on filedocumented in this encounter Care Teams Heavy Equipment Plumbing Supervisor Relationship Specialty Start Date End Date Cornelia Cabrera MD [address] [place] [address] PCP - General Family Medicine 11/01/21 documented as of this encounter
--- OUTSIDE RECORDS SUMMARY | 2024-12-06 13:41 | XMS_ITS | Encounter Summary ---
Author Organization [employer] Address [address] [facility] 7t [place] [address] Care Team Providers Care Cocoa Roaster Name Role Phone Cornelia Cabrera MD Primary Care Provider [phone] Encounter Details Date Type Department Care Team ([facility] st Contact Info) Description 11/17/[address] [facility] MEDICINE [address] [place], [place] [phone] Cornelia Cabrera MD [address] [place], [place] [phone] Anemia, unspecified type (Primary Dx) Social History [...] Author Not at all 11/17/2024 10:08 AM MAYRAT Mj Marcum [place] * Thoughts that you would be [...] differential Lab Routine Anemia, unspecified type Expected: 02/16/2025 (Approximate), Expires: 11/17/2025 Comprehensive Metabolic Panel Lab Routine Anemia, unspecified type Expected: 02/16/2025 (Approximate), Expires: 11/17/2025 Ferritin Lab Routine Anemia, unspecified type Expected: 02/16/2025 (Approximate), Expires: 11/17/2025 Iron And Total Iron Binding Capacity Lab Routine Anemia, unspecified type Expected: 02/16/2025 (Approximate), Expires: 11/17/2025 Vitamin B12 (Cobalamin) and Folate Panel, Serum Lab Routine Anemia, unspecified type Expected: 02/16/2025 (Approximate), Expires: 11/17/2025 Reticulocyte Count Lab Routine Anemia, unspecified type Expected: 02/16/2025 (Approximate), Expires: 11/17/2025 documented as of this encounter Visit Diagnoses Diagnosis Anemia, unspecified type- Primary documented in this encounter Additional Health Concerns Assessment Noted Time PHQ-9 Depression Total Score: 0 11/18/19 25 10:08 AM EDT documented as of this encounter Care Teams Cocoa Roaster Relationship Specialty Start Date End Date Cornelia Cabrera MD [address] [place] [address] PCP - General Family Medicine 11/01/21 documented as of this encounter
--- OUTSIDE RECORDS SUMMARY | 2024-12-06 13:41 | XMS_ITS | Encounter Summary ---
Author Organization [employer] Address [address] [facility] 7t [place] [address] Care Team Providers Care Purification Operator Helper Name Role Phone Cornelia Cabrera MD Primary Care Provider [phone] Encounter Details Date Type Department Care Team (Latest Contact Info) Description 06/19/2020 Abstract [facility] CONVERSIONS Dental, Provider, DDS Social History [...] on filedocumented in this encounter Care Teams Purification Operator Helper Relationship Specialty Start Date End Date Cornelia Cabrera MD [address] [place] [address] PCP - General Family Medicine 11/01/21 documented as of this encounter
== END 2024-12-06 11:32 | disposition home or self-care (01) ==
LOC: HO.HGI 11:02
PROVIDERS: PCP Family Medicine; Visit Provider Internal Medicine Gastroenterology
DX: D64.9 Anemia, unspecified (principal)
CPT/HCPCS: 99214

== ENCOUNTER → 2024-12-06 11:01 | Outpatient (BNVA) | payer OTHER, SELFPAY | PROVIDERS: PCP Family Medicine; Visit Provider Internal Medicine Gastroenterology | DX: Z01.818 Encounter for other preprocedural examination (principal); D64.9 Anemia, unspecified | CPT/HCPCS: 99212 ==

== ENCOUNTER 2025-01-04 11:08 | Day surgery (SDC) | payer OTHER, SELFPAY ==
--- OUTSIDE RECORDS SUMMARY | 2024-12-20 16:41 | XMS_ITS | Encounter Summary ---
Author Organization [employer] Address [address] [facility] 7t [place] [address] Care Team Providers Care Felling Machine Operator Name Role Phone Cornelia Cabrera MD Primary Care Provider [phone] Encounter Details Date Type Department Care Team (Latest Contact Info) Description 08/24/2018 Abstract [facility] CONVERSIONS Dental, Provider, DDS Social History [...] on filedocumented in this encounter Care Teams Felling Machine Operator Relationship Specialty Start Date End Date Cornelia Cabrera MD [address] [place] [phone] PCP - General Family Medicine 11/01/21 documented as of this encounter
--- OUTSIDE RECORDS SUMMARY | 2024-12-20 16:41 | XMS_ITS | Encounter Summary ---
Author Organization [employer] Address [address] [facility] 7t [place] [address] Care Team Providers Care Inbound Telemarketer Name Role Phone Cornelia Cabrera MD Primary Care Provider [phone] Encounter Details Date Type Department Care Team ([facility] st Contact Info) Description 11/17/2024 Orders Only [facility] MEDICINE [address] [place], [place] [phone] Cornelia Cabrrea MD [address] [place], [place] [phone] Anemia, unspecified type (Primary Dx) Social History [...] documented as of this encounter Care Teams Inbound Telemarketer Relationship Specialty Start Date End Date Cornelia Cabrera MD [address] [place] [address] PCP - General Family Medicine 11/01/21 documented as of this encounter
--- OUTSIDE RECORDS SUMMARY | 2024-12-20 16:41 | XMS_ITS | Encounter Summary ---
Author Organization [employer] Address 75 [facility] 7t [place] [address] Care Team Providers Care Gunstock Repairer Name Role Phone Cornelia Cabrera MD Primary Care Provider [phone] Encounter Details Date Type Department Care Team ([facility] st Contact Info) Description 11/07/2023 Orders Only [facility] MEDICINE [address] [place], [place] [phone] Cornelia Cabrera MD [address] [place], [place] [phone] Helicobacter pylori gastritis (Primary Dx) Social History [...] documented as of this encounter Care Teams Gunstock Repairer Relationship Specialty Start Date End Date Cornelia Cabrera MD [address] [place] [phone] PCP - General Family Medicine 11/01/21 documented as of this encounter
--- OUTSIDE RECORDS SUMMARY | 2024-12-20 16:41 | XMS_ITS | Encounter Summary ---
Author Organization [employer] Address [address] [facility] 7t [place] [address] Care Team Providers Care Water Plant Maintenance Mechanic Name Role Phone Cornelia Cabrera MD Primary Care Provider [phone] Encounter Details Date Type Department Care Team (Latest Contact Info) Description 11/12/2021 Abstract [facility] CONVERSIONS Dental, Provider, DDS Social History [...] on filedocumented in this encounter Care Teams Water Plant Maintenance Mechanic Relationship Specialty Start Date End Date Cornelia Cabrera MD [address] [place] [address] PCP - General Family Medicine 11/01/21 documented as of this encounter
--- OUTSIDE RECORDS SUMMARY | 2024-12-20 16:41 | XMS_ITS | Clinical Summary ---
Author Organization [employer] Address [address] [place] [address] 7t [place] [address] Care Team Providers Care Fire Manager Name Role Phone Cornelia Cabrera MD Primary Care Provider [phone] Allergies No known active allergies Medications clobetasol (Temovate) 0.05 % gelIndications:Gregorio pecia areata Apply on alopecia lesions twice daily 30 g 1 3 Active Fluocinolone Acetonide Scalp ([place]-Smoothe/FS Scalp) 0.01 % oilIndications:Luis Alberto orrheic dermatitis Apply at night 2 times weekly , apply covering 118.28 mL 2 3 Active fluticasone (Flonase) 50 MCG/ACT nasal sprayIndications:N on-seasonal allergic rhinitis due to other allergic trigger SPRAY 1 SPRAY IN EACH NOSTRIL TWICE DAILY 48 g 1 3 Active ketoconazole (NIZOral) 2 % shampooIndications :Seborrheic dermatitis USE TO WASH HAIR TWICE WEEKLY AT LEAST 3 DAYS APART FOR 4 WEEKS 120 mL 3 Active Bismuth Subsalicylate 262 MG tablet Take 2 tablets by mouth 4 times daily 112 tablet 4 Active omeprazole (PriLOSEC) [address] capsule Take 1 capsule (20 mg) by mouth 2 times daily for 14 days. 28 capsule 4 Active Omeprazole 20 MG tablet delayed-release Take 1 tablet by mouth 2 times daily. 4 Active Tri-Linyah 0.18/0.215/0.25 MG-35 MCG tablet Take 1 tablet by mouth in the morning. 84 tablet 3 5 Active ferrous sulfate (Fe Tabs) 325 (65 Fe) MG EC tablet Take 1 tablet (325 mg) by mouth every other day. Do not crush, chew, or split. 45 tablet 1 5 11/18/19 26 Active Active Problems Problem Noted Date Diagnosed Date [...] scheduled -check basic labs -consider eval with MICROSYSTEMS ENGINEER if no improvement -advised contact [facility] if sx change or worsen Alopecia [...] Description 11/17/2024 9:45 AM EDT Office Visit [address] [address] Cornelia Cabrera MD Routine general medical examination at a health care facility (Primary Dx); Vitamin D deficiency; Family history of diabetes mellitus; Weight loss; Screening for diabetes mellitus; Routine screening for STI (sexually transmitted infection); Anemia, unspecified type; Dietary counseling; Exercise counseling; Overweight 11/17/2024 Orders Only [address] [address] Cornelia Cabrera MD Anemia, unspecified type (Primary Dx) 11/17/2024 Results Follow-Up [address] [address] Cornelia Cabrera MD Chlamydia/N. Gonorrhoeae, PCR, Urine, CBC auto differential, Vitamin D, 25-Hydroxy, Total, Immunoassay, Additional followed-up results: 10 11/17/2024 Travel 11/16/[address] [address] Cornelia Cabrera MD CHART PREP 11/10/2024 Patient Outreach [address] [address] Cornelia Cabrera MD Pre-visit Planning (SDOH screening completed on 10/25/2024) 10/25/2024 9:15 AM EDT Office Visit [address] [address] Malka Patino CNM Surveillance of previously prescribed contraceptive pill (Primary Dx); Breast cancer screening by mammogram 10/25/[address] [address] Cornelia Cabrera MD insurance 10/25/2024 Travel 10/22/[address] [address] Cornelia Cabrera MD Insurance 10/22/[address] [address] Cornelia Cabrera MD chartprep from Last 3 [...] 10/25/2025 10/25/2024 Depression Screening 11/17/2025 11/17/2024, 11/18/19 25 Diabetes: Hemoglobin A1C 11/17/2025 025, 07/14/2023, 10/30/2022, [...] CT PCR, Urine NOT DETECTED Not Detect. [facility] Comment:A not detected test result does [...] NG PCR, Urine NOT DETECTED Not Detect. [facility] Comment:A not detected test result does [...] 10:12 AM EDT 11/17/2024 11:16 AM EDT us Cornelia Cabrera MD LAB URINE ORDERABLES Final Resul t Performing Organization Address [facility]/ZIP Co de Phone Number [facility] [address] [place] [phone] * Syphilis Screen (11/17/2024 10:12 AM EDT) Syphilis Screen Nonreactive Nonreactive [facility] Blood Venous blood specimen / Unknown 11/17/2024 10:12 AM EDT 11/17/2024 11:12 AM EDT us Cornelia Cabrera MD LAB BLOOD ORDERABLES Final Resul t Performing Organization Address City/[facility]/ZIP Co de Phone Number [facility] [address] [place] [phone] * Vitamin D, 25-Hydroxy, Total, Immunoassay (11/17/2024 10:12 AM EDT) Vitamin D 25-OH Total 41.2 >30 ng/mL [facility] Comment: Health Based Reference Values*< 20 ng/mL Bewcftytu88-27 ng/mL Insufficient> 30 ng/mL Sufficient*Lenny BAILEY. N [...] MD LAB BLOOD ORDERABLES Final Resul t [facility] [address] [place] [phone] * Vitamin B12 (Cobalamin) and Folate Panel, Serum (11/17/2024 10:12 AM EDT) Vitamin B12 290 200 - 900 pg/mL [facility] Comment:NORMAL 200-900 PG/ML INDETERMINATE 160-199 PG/ML DEFICIENT < 160 PG/ML Folate 12.7 > or = 4.0 ng/mL [facility] Comment:Reference Values:> o r = 4.0 ng/mL< 4.0 ng/mL suggests folate deficiency Methotrexate, aminopterin and folinic acid(leucovorin) are chemotherapeutic agents whose molecularstructures are similar to folate; therefore, the Architectfolate assay cannot be used for patients using these drugs. Blood 11/17/2024 10:1 2 AM EDT 11/17/2024 11:12 AM EDT Cornelia Cabrera MD LAB BLOOD ORDERABLES Final Resul t Performing Organization Address City/[facility]/ZIP Co de Phone Number [facility] [address] [place] [phone] * TSH with Reflex to Free T4 (11/17/2024 10:12 AM EDT) TSH reflex Free T4 0.86 0.32 - 4.0 uIU/mL [facility] Blood 11/17/2024 10:1 2 AM EDT 11/17/2024 11:12 AM EDT Cornelia Cabrera MD LAB BLOOD ORDERABLES Final Resul t Performing Organization Address [facility] Co de Phone Number [facility] [address] [place] [phone] * (ABNORMAL) CBC auto differential (11/17/2024 10:12 AM EDT) White Blood Count 7.0 4.8 - 10.8 X10*3/uL [facility] Red Blood Count 4.92 4.20 - 5.50 X10*6/uL [facility] Hemoglobin 10.6(L) 12.0 - 16.0 g/dl [facility] Hematocrit 35.7(L) 37.0 - 47.0 % [facility] Mean Corpuscular Volume 72.6(L) 80.0 - 98.0 fL [facility] Mean Corpuscular Hemoglobin 21.5(L) 27.0 - 33.0 pg [facility] Mean Corpuscular HGB Conc 29.7(L) 31.0 - 35.0 g/dl [facility] Red Cell Distribution Width 18.1(H) 11.0 - 16.0 % [facility] Platelet Count 353 160 - 400 X10*3/uL [facility] Mean Platelet Volume 10.6 9.4 - 12.3 fL [facility] Neutrophils Percent Auto 62.4 45 - 73 % [facility] Imm Gran Pct Auto 0.3 0.0 - 0.4 % [facility] Lymphocytes Percent Auto 27.4 20 - 40 % [facility] Monocytes Percent Auto 6.7 2 - 11 % [facility] Eosinophils Percent Auto 2.3 0 - 4 % [facility] Basophils Percent Auto 0.9 0 - 2 % [facility] NRBC Pct Auto 0.0 0.0 - 0.2 /100WBC [facility] Neutrophils Absolute Auto 4.4 2.0 - 8.3 x10*3/uL [facility] Imm Gran Abs Auto 0.02 0.00 - 0.03 X10*3/uL [facility] Lymphocytes Absolute Auto 1.9 1.2 - 4.9 X10*3/uL [facility] Monocytes Absolute Auto 0.5 0.1 - 1.2 X10*3/uL [facility] Eosinophils Absolute Auto 0.2 0.0 - 0.4 X10*3/uL [facility] Basophils Absolute Auto 0.1 0.0 - 0.2 X10*3/uL [facility] NRBC Abs Auto 0.000 0.0 - 0.012 X10*3/uL [facility] Blood Venous blood specimen / Unknown 11/17/2024 10:12 AM EDT 11/17/2024 11:12 AM EDT us Cornelia Cabrera MD LAB BLOOD ORDERABLES Final Resul t [facility] [address] [place] [phone] [phone] * Hepatitis C Antibody with Reflex to HCV, RNA, Quantitative, Real-Time PCR (11/17/2024 10:12 AM EDT) Hepatitis C Antibody Nonreactive Nonreactive [facility] Comment:Antibodies to HCV no t detected; does not exclude early acuteHCV infection. Blood Venous blood specimen / Unknown 11/17/2024 10:12 AM EDT 11/17/2024 11:12 AM EDT Cornelia Cabrera MD LAB BLOOD ORDERABLES Final Resul t Performing Organization Address [facility] Co de Phone Number [facility] [address] [place] [phone] * (ABNORMAL) Iron And Total Iron Binding Capacity (11/17/2024 10:12 AM EDT) Pathologist [facility] Iron 20(L) 30 - 160 mcg/dL [facility] Total Iron Binding Capacity 468(H) 228 - 428 mcg/dL [facility] Percent Iron Saturation 4(L) 15 - 50 % [facility] Unsaturated Iron Binding 448 ug/dL [facility] Blood Venous blood specimen / Unknown 11/17/2024 10:12 AM EDT 11/17/2024 11:12 AM EDT Cornelia Cabrera MD LAB BLOOD ORDERABLES Final Resul t Performing Organization Address [facility] de Phone Number [facility] [address] [place] [phone] * Hepatitis B surface antigen, EIA (11/17/2024 10:12 AM EDT) Pathologist [facility] Hepatitis B Surface Ag Negative Negative [facility] Blood Venous blood specimen / Unknown 11/17/2024 10:12 AM EDT 11/17/2024 11:12 AM EDT Cornelia Cabrera MD LAB BLOOD ORDERABLES Final Resul t Performing Organization Address [facility] Co de Phone Number [facility] [address] [place] [phone] * HIV-1/2 Antigen and Antibodies, Fourth Generation, with Reflexes (11/17/2024 10:12 AM EDT) [facility] HIV AB/AG Nonreactive Nonreactive [facility] Comment:HIV-1 p24 Ag and/or HIV-1/HIV-2 Ab not detected.A test result that is nonreactive does not exclude thepossibility of exposure to or infection with HIV-1 and/orHIV-2. Nonreactive results in this assay for individualswith prior exposure to HIV-1 and/or HIV-2 may be due toantigen and antibody levels that are below the limit ofdetection of this assay.The [facility] [facility] HIV Ag/Ab Combo assay result andsupplemental assay results should be interpreted inconjunction with the patient's clinical presentation,history and other laboratory results. If the results areinconsistent with clinical evidence, additional testing issuggested to confirm the result. Blood Venous blood specimen / Unknown 11/17/2024 10:12 AM EDT 11/17/2024 11:12 AM EDT us Cornelia Cabrera MD LAB BLOOD ORDERABLES Final Resul t [facility] [address] [place] [phone] * (ABNORMAL) Reticulocyte Count (11/17/2024 10:12 AM EDT) [facility] Reticulocytes Absolute 0.074 0.026 - 0.095 X10*6/uL [facility] Immature Retic Fraction 22.1(H) 3.0 - 15.9 % [facility] Retic HGB Equivalent 25.2(L) 30.0 - 35.0 pg [facility] Reticulocyte Percent 1.5 0.5 - 1.8 % [facility] Blood Venous blood specimen / Unknown 11/17/2024 10:12 AM EDT 11/17/2024 11:12 AM EDT us Cornelia Cabrera MD LAB BLOOD ORDERABLES Final Resul t Performing Organization Address [facility] Co de Phone Number [facility] [address] [place] [phone] * Hemoglobin A1c (11/17/2024 10:12 AM EDT) Hemoglobin A1c 5.8 <6.0 % [facility] Comment:Hemoglobin A1C Refer ence Range Adults: 4.8 - 6.0 % Non diabetic: < 6.0 % Goal: < 7.0 %Additional Action Suggested: > 8.0 %Note: Hemoglobin A1c results are invalid for patients with abnormal amounts of HbF. Blood transfusions may impact the HbA1c concentration in the patient sample. Estimated Average Glucose 120 mg/dL [facility] Comment:eAG = Estimated ave rage glucose which is %A1C expressed asaverage glucose, using the formula of the S4S-CwxbjvzAyrndze Glucose study (ADAG), Diabetes Care, Vol.31,#8,Oct. 2007 Blood Venous blood specimen / Unknown 11/17/2024 10:12 AM EDT 11/17/2024 11:12 AM EDT us Cornelia Cabrera MD LAB BLOOD ORDERABLES Final Resul t Performing Organization Address [facility] Co de Phone Number [facility] [address] [place] [phone] * (ABNORMAL) Ferritin (11/17/2024 10:12 AM EDT) Ferritin <2(L) 10 - 250 ng/mL [facility] Blood Venous blood specimen / Unknown 11/17/2024 10:12 AM EDT 11/17/2024 11:12 AM EDT us Cornelia Cabrera MD LAB BLOOD ORDERABLES Final Resul t Performing Organization Address [facility] Co de Phone Number [facility] [address] [place] [phone] * BI Mammogram Screening Tomosynthesis Bilateral (11/11/2024 7:35 AM EDT) Anatomical Region Laterality Modality Breast Bilateral Mammography 11/11/2024 7:35 AM EDT Narrative 11/13/2024 3:58 PM EDT [place] [facility] [address] [place] [address] Mammography Report Signed Patient: Breanna Eldridge MR#: [id number] : 1985 Acct:[id number] Age/Sex: 38 / F ADM Date: 11/11/24 Loc: HO.[place] Attending Dr: Malka Patino CNM Ordering Physician: MALKA PATINO CNM Results: 1 Negative Date of Service: 11/11/24 Follow Up: 1 Year From [facility] Mammogram Procedure(s): MM tomosynthesis screening BI Accession Number(s): [id number] cc: MALKA PATINO CNM; Cornelia Cabrera MD [...] 11/13/24 1556 DD/ 0735 TD/TT: 11/11/24 0750 Public Health Aide: Procedure Note Donotuseinterpreter, Image - 11/13/2024 [facility] [address] [place] [address] Mammography Report Signed Patient: Bridgette Eldridge#: M [id number] : 1985Acct:[id number] Age/Sex: 38 / FADM Date: 11/11/24 Loc: DAVON Attending Dr: Malka Patino CNM Ordering Physician: MALKA PATINOesults: 1 Negative Date of Service: 11/11/24Follow Up: 1 Year From Orig inal Mammogram Procedure(s): MM tomosynthesis screening BI Accession Number(s): [id number] cc: MALKA PATINO CNM; Cornelia Cabrera MD [...] 11/13/24 1556 DD/ 0735 TD/TT: 11/11/24 0750 Public Health Aide: Malka Patino CNM IMG BI PROCEDURES Final R esult * (ABNORMAL) ThinPrep Imaging Pap and HPV mRNA E6/E7 (10/29/2023 12:00 AM EDT) HPV nRNA E6/E7 Not Detected Not Detected [facility] Comment:Methodology: Transcr iption-Mediated AmplificationThis assay detects E6/E7 viral messenger RNA (mRNA) from 14high-risk HPV types (16,18,31,33,35,39,45,51,52,56,58,59,66,68).Cervical sources are required for HPV testing.If a vaginal source from a patient who has had atotal hysterectomy with removal of cervix wassubmitted, please contact the testing laboratoryfor alternative testing options.For additional information, please refer tohttp://education.Commutable/faq/LNB400k1(This link if provided for information/educational purposes only.)THIS TEST WAS PERFORMED AT:[facility]-[address] [place] [phone] BEASLEY MD SOURCE: SEE NOTE [facility] Comment:None given Report Status: TNP [facility] Clinical Information: SEE NOTE [facility] Comment:None given LMP: SEE NOTE [facility] Comment:NONE GIVEN Prev. PAP: SEE NOTE [facility] Comment:NONE GIVEN Prev. BX: SEE NOTE [facility] Comment:NONE GIVEN Statement Of Adequacy: SEE NOTE [facility] Comment:Satisfactory for arely luation.Endocervical/transformation zone componentpresent. General Categorization: SEE NOTE(A) [facility] Comment:Cytology Results: Ep ithelial Cell Abnormality Interpretation/Resul t: SEE NOTE(A) [facility] Comment:Low Grade Squamous I ntraepithelial Lesion (LSIL) Cytology Comment SEE NOTE [facility] Comment:This Pap test has be en evaluated with computerassisted technology. Front End Assistant: SEE NOTE [facility] Comment:SL, CT(ASCP)CT maurisio haynes location: [place] [address] Review Front End Assistant: [facility] Pathologist SEE NOTE [facility] Comment:Layo Meeks M.D./Krys.S Marium,Board Certified in Anatomic Pathology andBoard Eligible Cytopathology(electronic signature)Consulting Pathologist[address] [phone] PAP Infection [facility] See Note SEE NOTE [facility] Comment:EXPLANATORY NOTE:The Pap is a screening test for cervical cancer. It isnot a diagnostic test and is subject to false negativeand false positive results. It is most reliable when asatisfactory sample, regularly obtained, is submittedwith relevant clinical findings and history, and whenthe Pap result is evaluated along with historic andcurrent clinical information. 10/29/2023 10/29/2023 Narrative [facility] - 11/04/2023 11:55 AM EDT SEE RESULTS IN EMR us Malka Patino CNM LAB PATHOLOGY ORDERABLES Final Result [facility] [address] [place], [place] [phone] from Last 3 Months or Most Recently Relevant to Health Maintenance Insurance [facility] 2 Care Teams Fire Manager Relationship Specialty Start Date End Date Cornelia Cabrera MD [address] [place] [phone] PCP - General Family Medicine 11/01/21
--- OUTSIDE RECORDS SUMMARY | 2024-12-20 16:41 | XMS_ITS | Encounter Summary ---
Author Organization [employer] Address [address] [place] [address] [address] [place] [address] Care Team Providers Care Local Company Refrigerated Truck Driver Name Role Phone Cornelia Cabrera MD Primary Care Provider [phone] Reason for Visit * Reason Comments Med Refill Encounter Details Date Type Department Care Team (Late st Contact Info) Description 03/19/2022 Refill [facility] [address] [place], [place] [phone] Cornelia Cabrera MD [address] [place], [place] [phone] Seborrheic dermatitis Social History Tobacco Use Types [...] dermatitis documented in this encounter Care Teams Local Company Refrigerated Truck Driver Relationship Specialty Start Date End Date Cornelia Cabrera MD [address] [place], [place] [phone] PCP - General Family Medicine 11/01/21 documented as of this encounter
--- OUTSIDE RECORDS SUMMARY | 2024-12-20 16:41 | XMS_ITS | Encounter Summary ---
Author Organization [employer] Address [address] [facility] 7t [place] [address] Care Team Providers Care Research Archaeologist Name Role Phone Cornelia Cabrera MD Primary Care Provider [phone] Encounter Details Date Type Department Care Team ([facility] st Contact Info) Description 11/25/2023 Orders Only [facility] [address] [place], [place] [phone] Cornelia Cabrera MD [address] [place], [place] [phone] Social History Tobacco Use Types Packs/Day Years [...] documented as of this encounter Care Teams Research Archaeologist Relationship Specialty Start Date End Date Cornelia Cabrera MD [address] [place] [id number] PCP - General Family Medicine 11/01/21 documented as of this encounter
--- OUTSIDE RECORDS SUMMARY | 2024-12-20 16:41 | XMS_ITS | Encounter Summary ---
Author Organization [employer] Address [address] [place] [address] 7t [place] [address] Care Team Providers Care Industrial Energy Engineer Name Role Phone Cornelia Cabrera MD Primary Care Provider [phone] Encounter Details Date Type Department Care Team ([facility] st Contact Info) Description 10/30/2022 Orders Only [facility] MED[facility] [address] [place], [place] [phone] Cornelia Cabrera MD [address] [place] [address] Anemia, unspecified type (Primary Dx) Social History [...] documented as of this encounter Care Teams Industrial Energy Engineer Relationship Specialty Start Date End Date Cornelia Cabrera MD [address] [place] [address] PCP - General Family Medicine 11/01/21 documented as of this encounter
--- OUTSIDE RECORDS SUMMARY | 2024-12-20 16:41 | XMS_ITS | Encounter Summary ---
Author Organization [employer] Address [address] [facility] 7t [place] [address] Care Team Providers Care Foreign Law Consultant Name Role Phone Cornelia Cabrera MD Primary Care Provider [phone] Encounter Details Date Type Department Care Team (Latest Contact Info) Description 06/19/2020 Abstract [facility] Dental, Provider, DDS Social History [...] on filedocumented in this encounter Care Teams Foreign Law Consultant Relationship Specialty Start Date End Date Cornelia Cabrera MD [address] [place] [address] PCP - General Family Medicine 11/01/21 documented as of this encounter
--- OUTSIDE RECORDS SUMMARY | 2024-12-20 16:41 | XMS_ITS | Encounter Summary ---
Author Organization [employer] Address [address] [facility] 7t [place] [address] Care Team Providers Care Blister Packaging Machine Operator Name Role Phone Cornelia Cabrera MD Primary Care Provider [phone] Encounter Details Date Type Department Care Team ([facility] st Contact Info) Description 07/15/2023 Orders Only [facility] MEDICINE [address] [place], [place] [phone] China Oswald DO [address] [place], [place] [phone] Social History Tobacco Use Types Packs/Day Years [...] documented as of this encounter Care Teams Blister Packaging Machine Operator Relationship Specialty Start Date End Date Cornelia Cabrera MD [address] [place] [phone] PCP - General Family Medicine 11/01/21 documented as of this encounter
[2024-12-31 14:00] VITALS: BMI 26.6
[2025-01-04 11:21] VITALS: BP 127/46; PULSE 78; RESP 17; TEMP 36.9; O2SAT 97; BMI 26.9
[2025-01-04 11:33] LABS: UPreg QC Valid YES
[2025-01-04] MEDS: Lactated Ringers 1,000 ML 100 ML IVCONT (11:35)
--- NOTE | 2025-01-04 12:10 | MHC.SHP ---
Pre-Procedural Eval Section A - 24 Hr Update-Section A only Date of Service: 01/04/25 The patient is an INPATIENT: No The patient has been examined within 24 hours of the surgical procedure. The History & Physical has been completed within 30 days and I have reviewed it.: Yes Section B - Complete if H&P > 30 days Chief Complaint: Anemia, unspecified Allergies: Allergies Allergy/AdvReac Type Severity Reaction Status Date / Time No Known Allergies Allergy Verified 03/31/24 13:15 Plan Diagnosis/Plan: Unchanged I have reviewed the history and physical and performed a pertinent physical examination on my patient. No changes have occurred unless specified. Time Spent With Patient Time: Total time managing care of this patient today ____ minutes.
--- NOTE | 2025-01-04 12:34 | P.CONAN_ITS ---
Documented by User: Alejandra Koroma NP 01/03/25 09:04 HPI - Anesthesia Eval Consult details Narrative: 39yo F for Upper Endoscopy and Colonoscopy [facility] Active Problems Active Problems: All Active Problems Anemia (Acute) Chronic epigastric pain (Acute) Gallstones (Acute) Past Medical History Medical History (Updated 04/01/24 @ 00:01 by Background Daemcarlos) Anemia Chronic epigastric pain Gallstones Family History Family history of problems with anesthesia: No Surgical History Surgical History (Updated 12/31/24 @ 13:58 by Michelle Wilson RN) History of esophagogastroduodenoscopy (EGD) H/O colonoscopy History of laparoscopic cholecystectomy (~11/12/22) History of Problems with Anesthesia: No (Never had anesthesia) Social History Social History Alcohol intake: current Alcohol intake frequency: does not drink Patient Tobacco Use Status: Never used Tobacco Are you DNR?: No Advance Directives: No Advance Directives Information Provided: Yes Patient : No Meds Allergies Allergy/AdvReac Type Severity Reaction Status Date / Time No Known Allergies Allergy Verified 03/31/24 13:15 Home Medications ?Medication ?Instructions ?Recorded ?Confirmed ?Last Taken ?Type No Known Home Meds 01/04/25 01/04/25 Un known History Exam Height,Weight and Vital Signs: Height 5 ft 3 in Weight 68.039 kg Assessment and Plan Assessment Anesthesia Assessment: Chart Reviewed Final Anesthetic Review Family History of Problems with Anesthesia: No History of Problems with Anesthesia: No (Never had anesthesia) Documented by User: Dianelys Marrero DO 01/04/25 12:35 [facility] Past Medical History Medical History (Updated 04/01/24 @ 00:01 by Background Dabernardo) Anemia Chronic epigastric pain Gallstones Family History Family history of problems with anesthesia: No Surgical History Surgical History (Updated 12/31/24 @ 13:58 by Michelle Wilson RN) History of esophagogastroduodenoscopy (EGD) H/O colonoscopy History of laparoscopic cholecystectomy (~11/12/22) History of Problems with Anesthesia: No Social History Social History Alcohol intake: current Alcohol intake frequency: does not drink Patient Tobacco Use Status: Never used Tobacco Are you DNR?: No Advance Directives: No Advance Directives Information Provided: Yes Patient : No Meds Allergies Allergy/AdvReac Type Severity Reaction Status Date / Time No Known Allergies Allergy Verified 03/31/24 13:15 Home Medications ?Medication ?Instructions ?Recorded ?Confirmed ?Last Taken ?Type No Known Home Meds 01/04/25 01/04/25 Un known History Exam Exam Date and Time: 01/04/25 1234 Height,Weight and Vital Signs: Vital Signs Temperature 98.5 F 01/04/25 11:21 Pulse Rate 78 01/04/25 11:21 Respiratory Rate 17 01/04/25 11:21 Blood Pressure 127/46 L 01/04/25 11:21 Pulse Oximetry 97 01/04/25 11:21 Oxygen Delivery Method Room Air 01/04/25 11:21 Temperature 98.5 F 01/04/25 11:21 Pulse Rate 78 01/04/25 11:21 Respiratory Rate 17 01/04/25 11:21 Blood Pressure 127/46 L 01/04/25 11:21 Pulse Oximetry 97 01/04/25 11:21 Oxygen Delivery Method Room Air 01/04/25 11:21 Height 5 ft 3 in Weight 68.039 kg Airway Mallampati Class: II TM Dist: >3cm Neck ROM: Full Denture: Upper Heart: S1S2 Lungs: CTAB Assessment and Plan Assessment Anesthesia Assessment: Anesthesia Plan Discussed and Chart Reviewed Final Anesthetic Review Family History of Problems with Anesthesia: No History of Problems with Anesthesia: No NPO: Yes ASA Class: II Final Preanesthetic Review: No Changes in Pt Med Stat, Meds/Allgs Chart Reviewed, Consent Obtained/Reviewed and Anes Risks/Benef Reviewed Patient Risk: Low Procedure Risk: Low Anesthetic Plan Anesthetic Plan: MAC: and Agree w/ Assess. and Plan Disposition: Standard PACU
--- NOTE | 2025-01-04 13:26 | HO.OPN-COLON ---
Colonoscopy Operative Note Operative Note Date of Service: 01/04/25 Narrative: Operative Information Procedure Description: EGD, Colonoscopy Indication: anemia Anesthesia: MAC FLEXIBLE TRANSORAL UPPER GASTROINTESTINAL ENDOSCOPY AND COLONOSCOPY PROCEDURE NOTE UPPER ENDOSCOPY Consent: Indications for the procedure and potential complications of bleeding, perforation, reaction to medications and missed diagnosis were discussed with the patient and informed consent was obtained. Instrument: Olympus GIF H 190 J mid size upper endoscope Monitoring: Vital signs and clinical assessment, continuous EKG monitoring, Pulse oximetry, Carbon Dioxide monitoring and blood pressure monitoring were done throughout the procedure. Procedure: The patient was placed in the left lateral decubitis position and pre-procedure medications were administered and a bite block was placed. The endoscope was inserted into the mouth and advanced under direct vision to the third part of duodenum. A careful inspection was made as the upper endoscope was withdrawn including a retroflexed examination of the proximal stomach; Findings and interventions are described below. Findings: Larynx:normal Esophagus: GE junction at 40 cm, diaphragm hiatus at 40 cm, normal mucosa Stomach:Mild gastritis. Biopsies were obtained. Grade 2 flap valve on retroflexed examination of the cardia. Duodenum: Normal bulb and descending duodenum, bx taken Intervention: Biopsies as noted above, COLONOSCOPY Instrument: Olympus variable stiffness pediatric scope 190L Colonoscopy Monitoring: Vital signs and clinical assessment, continuous EKG monitoring, Pulse oximetry, Carbon Dioxide monitoring and blood pressure monitoring were done throughout the procedure. Colon withdrawal time was 7 minutes. Procedure: The patient was placed in the left lateral decubitis position and pre-procedure medications were administered. After a digital rectal examination of the ano-rectum, the video colonoscope was inserted into the rectum and advanced through the colon to the cecum/TI. The colonoscope was slowly withdrawn in a retrograde panoramic fashion and the colon mucosa was carefully examined including a retroflexed view of the rectum. Findings and interventions are described below. Procedure Difficulty: easy Findings: Terminal Ileum-normal Cecum:normal- partially obscured by fecal debris Ascending Colon: normal Transverse Colon -normal Descending Colon:normal Sigmoid Colon: normal Rectum: Retroflexion with small internal hemorrhoids, grade I Anorectum - normal Colon preparation: [place] Bowel Preparation Scale Right colon; 1-2 Transverse colon: 2 Left colon; 2 (0 = Unprepared colon segment with mucosa not seen due to solid stool that cannot be cleared. 1 = Portion of mucosa of the colon segment seen, but other areas of the colon segment not well seen due to staining, residual stool and/or opaque liquid. 2 = Minor amount of residual staining, small fragments of stool and/or opaque liquid, but mucosa of colon segment seen well. 3 = Entire mucosa of colon segment seen well with no residual staining, small fragments of stool or opaque liquid) Impression and Post Procedure Diagnosis: Endoscopy Findings: mild gastritis Colonoscopy Findings: internal hemorrhoids Plan: Await Pathology results Repeat Colonoscopy in 3 years due to fair prep on right or earlier if clinically indicated High fiber diet leaflet avoid straining at stool, epsom salts and sitz bath, anusol supps or cream Above findings were reviewed with the patient and relevant handouts were provided if indicated.
[2025-01-04 13:28] VITALS: BP 122/50; PULSE 75; RESP 14; TEMP 36.2; O2SAT 98
[2025-01-04 13:30] VITALS: BP 116/59; PULSE 71; RESP 14; O2SAT 98
[2025-01-04 13:45] VITALS: BP 126/81; PULSE 71; RESP 16; TEMP 36.2; O2SAT 98
[2025-01-04 14:00] VITALS: BP 129/74; PULSE 62; RESP 16; TEMP 36.1; O2SAT 98
== END 2025-01-04 14:22 | disposition home or self-care (01) ==
PROVIDERS: Nurse Practitioner; PCP Family Medicine; Visit Provider Internal Medicine Gastroenterology
PROC: (CPT 45378; principal; 2025-01-04 13:40)
DX: D64.9 Anemia, unspecified (principal); K29.70 Gastritis, unspecified, without bleeding; K64.0 First degree hemorrhoids
CPT/HCPCS: 45378; 43239; 81025; 88305; 88313; 88342; J2003; J2704

== ENCOUNTER → 2025-01-04 11:08 | Outpatient (BNV) | payer OTHER, SELFPAY | PROVIDERS: PCP Family Medicine; Visit Provider Internal Medicine Gastroenterology | DX: D64.9 Anemia, unspecified (principal); K29.70 Gastritis, unspecified, without bleeding; K64.0 First degree hemorrhoids; Z91.199 Patient's noncompliance with other medical treatment and regimen due to unspecified reason | CPT/HCPCS: 43239; 45378 ==

== ENCOUNTER 2025-02-01 07:45 | Outpatient (AMB) | payer OTHER, SELFPAY ==
--- NOTE | 2025-02-01 08:20 | AM.OFFVISNUR ---
Intake Visit Reasons: CAPSULE Intake Note: Patient came in prepped for the pill cam - aware that she needs to come back at 4pm to return equipment aware that she can eat at 11/1130am Gravity Meter Observer Required: No Allergies No Known Allergies Allergy (Verified 03/31/24 13:15) Assessment & Plan Assessment & Plan (1) Chronic epigastric pain: Code(s): R10.13 - Epigastric pain; G89.29 - Other chronic pain Category: Medical (2) Anemia: Code(s): D64.9 - Anemia, unspecified Category: Medical Coding Level of Care Code Est Pt Level 1 (21888) Diagnoses Chronic epigastric pain R10.13; G89.29 Anemia D64.9
== END 2025-02-01 08:45 | disposition home or self-care (01) ==
LOC: HO.HGI 07:46
PROVIDERS: PCP Family Medicine; Visit Provider Internal Medicine Gastroenterology
DX: R10.13 Epigastric pain (principal); G89.29 Other chronic pain; D64.9 Anemia, unspecified

== ENCOUNTER → 2025-02-01 07:45 | Outpatient (BNVA) | payer OTHER, SELFPAY | PROVIDERS: PCP Family Medicine; Visit Provider Internal Medicine Gastroenterology | DX: R10.13 Epigastric pain (principal); G89.29 Other chronic pain; D64.9 Anemia, unspecified | CPT/HCPCS: 99211 ==